=== PATIENT | male | born 1955 | race Caucasian/White ===

== ENCOUNTER → 2017-10-31 01:01 | Outpatient (CLI) | payer OTHER, SELFPAY ==
[2017-10-31 10:15] LABS: INR 2.8 (1.0-3.5); Prothrombin Time 26.2 sec (9.3-10.8)
== END ==
PROVIDERS: PCP Family Medicine; Visit Provider Family Medicine
DX: Z79.01 Long term (current) use of anticoagulants (principal); Z95.2 Presence of prosthetic heart valve
CPT/HCPCS: 36415; 85610

== ENCOUNTER → 2017-11-26 03:06 | Outpatient (CLI) | payer OTHER, SELFPAY ==
[2017-11-26 10:56] LABS: INR 2.4 (1.0-3.5); Prothrombin Time 23.1 sec (9.3-10.8)
== END ==
PROVIDERS: PCP Family Medicine; Visit Provider Family Medicine
DX: Z95.2 Presence of prosthetic heart valve (principal); Z79.01 Long term (current) use of anticoagulants; I35.8 Other nonrheumatic aortic valve disorders
CPT/HCPCS: 36415; 85610

== ENCOUNTER 2017-12-31 02:47 | Outpatient (CLI) | payer OTHER, SELFPAY ==
[2017-12-31 09:32] LABS: INR 2.6 (1.0-3.5); Prothrombin Time 24.3 sec (9.3-10.8)
== END 2017-12-31 03:07 ==
PROVIDERS: PCP Family Medicine; Visit Provider Family Medicine
DX: Z95.2 Presence of prosthetic heart valve (principal); Z79.01 Long term (current) use of anticoagulants
CPT/HCPCS: 36415; 85610

== ENCOUNTER 2018-01-30 02:04 | Outpatient (CLI) | payer OTHER, SELFPAY ==
[2018-01-30 12:46] LABS: INR 3.6 (1.0-3.5); Prothrombin Time 33.9 sec (9.3-10.8)
== END 2018-01-30 02:24 ==
PROVIDERS: PCP Family Medicine; Visit Provider Family Medicine
DX: Z95.2 Presence of prosthetic heart valve (principal); Z79.01 Long term (current) use of anticoagulants
CPT/HCPCS: 36415; 85610

== ENCOUNTER 2018-02-27 01:48 | Outpatient (CLI) | payer OTHER, SELFPAY ==
[2018-02-27 08:46] LABS: INR 2.8 (1.0-3.5); Prothrombin Time 26.8 sec (9.3-10.8)
== END 2018-02-27 02:08 ==
PROVIDERS: PCP Family Medicine; Visit Provider Family Medicine
DX: Z95.2 Presence of prosthetic heart valve (principal); Z79.01 Long term (current) use of anticoagulants
CPT/HCPCS: 36415; 85610

== ENCOUNTER 2018-05-01 05:26 | Outpatient (CLI) | payer OTHER, SELFPAY ==
[2018-05-01 07:42] LABS: INR 2.5 (0.9-1.1); Prothrombin Time 25.2 sec (9.3-11.0)
== END 2018-05-01 05:46 ==
PROVIDERS: PCP Family Medicine; Visit Provider Family Medicine
DX: I35.8 Other nonrheumatic aortic valve disorders (principal); Z95.2 Presence of prosthetic heart valve; Z79.01 Long term (current) use of anticoagulants
CPT/HCPCS: 36415; 85610

== ENCOUNTER 2018-05-29 07:03 | Outpatient (CLI) | payer OTHER, SELFPAY ==
[2018-05-29 07:43] LABS: INR 2.3 (0.9-1.1); Prothrombin Time 22.9 sec (9.3-11.0)
== END 2018-05-29 07:23 ==
LOC: NCHCO 07:24
PROVIDERS: PCP Family Medicine; Visit Provider Family Medicine
DX: Z95.2 Presence of prosthetic heart valve (principal); Z79.01 Long term (current) use of anticoagulants
CPT/HCPCS: 36415; 85610

== ENCOUNTER 2018-07-30 01:40 | Outpatient (CLI) | payer OTHER, SELFPAY ==
[2018-07-30 07:35] LABS: Prothrombin Time 19.6 sec (9.3-11.0)
[2018-07-30 07:36] LABS: INR 1.9 (0.9-1.1)
== END 2018-07-30 02:00 ==
PROVIDERS: PCP Family Medicine; Visit Provider Family Medicine
DX: Z95.2 Presence of prosthetic heart valve (principal); Z79.01 Long term (current) use of anticoagulants
CPT/HCPCS: 36415; 85610

== ENCOUNTER 2018-08-30 02:05 | Outpatient (CLI) | payer OTHER, SELFPAY ==
[2018-08-30 07:52] LABS: INR 2.2 (0.9-1.1); Prothrombin Time 22.3 sec (9.3-11.0)
== END 2018-08-30 02:25 ==
PROVIDERS: PCP Family Medicine; Visit Provider Family Medicine
DX: Z95.2 Presence of prosthetic heart valve (principal); Z79.01 Long term (current) use of anticoagulants
CPT/HCPCS: 36415; 85610

== ENCOUNTER 2018-09-21 09:42 | Emergency (ER) | payer OTHER, SELFPAY ==
[2018-09-21 09:45] VITALS: BP 141/69; PULSE 87; RESP 16; TEMP 36.7; O2SAT 95
--- NOTE | 2018-09-21 09:56 | ED.GENADUL_ITS ---
Discharge Plan Disposition Patient Disposition: HOME Condition: Stable Discharge Details Chief Complaint: Orthopedic Clinical Impression: Overuse injury Primary Care Provider: Yohana Prado V ED Provider: Pete Wall Home Meds and New Rx's Prescriptions: No Action warfarin [Coumadin] 10 MG tablet 10 mg PO DAILY RF: 0 metformin [Glucophage] 1,000 MG tablet 500 mg PO BID RF: 0 aspirin [Aspirin Low-Strength] 81 MG tablet,chewable 81 mg PO DAILY RF: 0 levothyroxine [Synthroid] 200 MCG tablet 225 mcg PO DAILY RF: 0 metoprolol tartrate 25 MG tablet 25 mg PO BID RF: 0 losartan 25 mg Tablet 25 mg PO DAILY RF: 0 Cosentyx 150 MG/ML syringe 300 mg IM PER PROTOCOL RF: 0 Novolog PenFill U-100 Insulin 100 UNIT/ML cartridge SQ PRN PRNRF: 0 Levemir FlexTouch U-100 Insuln 300 UNITS/3 ML insulin pen 32 unit SQ BID RF: 0 Discharge Instructions Additional Instructions: Continue to take the tylenol as needed 1000mg every 6 hours Use the splint as needed for comfort If you have new symptoms such as fever or redness of the wrist that is spreading return to the emergency department. follow up as scheduled with your primary care provider on Medical Decision Making 62 yo male on coumadin for heart valve replacement, dm, who comes in with cc of nontraumatic left wrist pain for a week. 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 No systemic symptoms such as fevers/chills, and no rashes. He has pain over the ulnar side of his wrist without visible or palpable deformity and some associated numbness of the pinky and ring finger. Does have full rom of the wrist and fingers. I suspect overuse syndrome vs ulnar neuropathy but will xray to eval for any type of bone pathology, unlikely fracture given lack of trauma. no fever, swelling or redness/warmth so doubt septic joint or gout. xray negative on my read, will place in splint and have him f/u as scheduled Thdya and return precautions given Differential Diagnosis neuropathy, sprain, overuse syndrome Imaging Data Radiologic Study: Attestation: I personally reviewed and interpreted this imaging study as follows: Imaging: X-Ray My impression: no acute findings HPI General Mode of arrival: ambulatory . Date/Time Provider Initiated Documentation: 09/21/18 09:50 . Limitations to Documentation: no limitations . Information obtained by: patient . History of Present Illness 62 year old M presents to the emergency department with the chief complaint of left wrist pain, described as moderate, Quality is described as aching, and is localized to the left and upper extremity. Patient reports no radiation. Patient started experiencing this week(s) (1) and it has been constant. No relieving factors improve symptom(s), No exacerbating factors reported . Patient notes no other symptoms.. Patient did receive the following treatments prior to arrival, none Related Data Home Medications Medication Instructions Recorded Confirmed aspirin [Aspirin Low-Strength] 81 mg PO DAILY 11/11/13 09/21/18 levothyroxine [Synthroid] 225 mcg PO DAILY 11/11/13 09/21/18 metformin [Glucophage] 500 mg PO BID 11/11/13 09/21/18 metoprolol tartrate 25 mg PO BID 11/11/13 09/21/18 warfarin [Coumadin] 10 mg PO DAILY 11/11/13 09/21/18 insulin aspart U-100 [Novolog] units SQ PRN PRN 04/29/17 insulin detemir U-100 [Levemir 32 unit SQ BID 04/29/17 09/21/18 Flextouch Pen] secukinumab [Cosentyx Syringe] 300 mg IM PER PROTOCOL 04/29/17 09/21/18 losartan 25 mg PO DAILY 09/21/18 09/21/18 Allergies Allergy/AdvReac Type Severity Reaction Status Date / Time Penicillins Allergy Severe Swelling/Ed Unverified 09/21/18 09:48 omar infliximab [From Remicade] AdvReac Severe Gave him Unverified 09/21/18 09:48 Lopus adalimumab [From Humira] AdvReac Intermediate Skin Rash Unverified 09/21/18 09:48 clindamycin AdvReac Intermediate Skin Rash Unverified 09/21/18 09:48 ustekinumab [From Stelara] AdvReac Intermediate Skin Rash Unverified 09/21/18 09:48 General Stated Complaint: Orthopedic LEDA: 4 Review of Systems Review of Systems All systems reviewed & are unremarkable except as noted in HPI and below Constitutional Denies chills and Denies fever(s) Cardiovascular Denies chest pain and Denies dyspnea Respiratory Denies cough and Denies dyspnea Gastrointestinal Denies abdominal pain, Denies nausea and Denies vomiting Integumentary/Breasts Denies rash PFSH Social History Smoking/Tobacco Use Status: Former Tobacco Use Alcohol Intake: never Drug use: Never Substance use type: does not use Do you feel safe at home: Yes Do you feel safe in your relationship?: Yes Exam Const General: no acute distress Orientation: alert HENMT Head: normal to inspection Ears: external ears normal General nose exam: external nose normal Mouth: moist mucous membranes Eyes General: appearance normal, both eyes and all related structures Neck Neck: normal visual inspection Resp Effort & Inspection: normal respiratory effort and able to speak in complete sentences Cardio Rate: regular rate Skin General skin exam: no rashes or lesions noted Neuro General: alert and oriented x3 Extrem General: normal to inspection Psych Mental Status: mental status grossly normal Course Vital Signs Temperature 36.7 C 09/21/18 09:45 Pulse 87 09/21/18 09:45 Respiratory Rate 16 09/21/18 09:45 Blood Pressure 141/69 H 09/21/18 09:45 Pulse Oximetry 95 09/21/18 09:45 Temperature 36.7 C 09/21/18 09:45 Temperature Source Temporal Artery Scan 09/21/18 09:45 Pulse 87 09/21/18 09:45 Respiratory Rate 16 09/21/18 09:45 Respiratory Effort Non-Labored 09/21/18 09:47 Blood Pressure 141/69 H 09/21/18 09:45 Blood Pressure Position Sitting 09/21/18 09:45 Pulse Oximetry 95 09/21/18 09:45 Oxygen Delivery Method Room Air 09/21/18 09:45 Oxygen Flow Rate 0 09/21/18 09:45 Pain Level 10 09/21/18 09:51
--- NOTE | 2018-09-21 10:06 | DI.RAD_ITS ---
SYMPTOM/DIAGNOSIS: MEDIAL WRIST PAIN LEFT WRIST: There are a few tiny metallic foreign bodies. No fracture or dislocation is seen. There are mild degenerative changes in the carpal and radial carpal regions. Vascular calcifications are seen. IMPRESSION: No acute abnormality.
--- NOTE | 2018-09-21 11:42 | DI.VRAD_ITS ---
EXAM: XR Left Wrist EXAM DATE/TIME: 09/21/2018 9:55 AM CLINICAL HISTORY: 62 years old, male; Patient HX: No known injury, pain in left wrist x1 week. No HX of injury or FX to left wrist. TECHNIQUE: Imaging protocol: XR Left wrist. Views: 3 or more views. COMPARISON: No relevant prior studies available. FINDINGS: Bones/joints: Degenerative changes in the carpal bones and radiocarpal joint There is no evidence of acute fracture.There is no evidence of malalignment or dislocation. Soft tissues: Metallic foreign body in the soft tissues adjacent to the distal radius IMPRESSION: There is no evidence of acute fracture.There is no evidence of malalignment or dislocation. Dictated and Authenticated by: Nikolai Tran MD. Ordering:WIN Freeman MD
== END 2018-09-21 10:23 | disposition home or self-care (01) ==
PROVIDERS: Emergency Provider Emergency Medicine; PCP Family Medicine
DX: M25.532 Pain in left wrist (principal); R20.2 Paresthesia of skin; X50.3XXA Overexertion from repetitive movements, initial encounter; E11.9 Type 2 diabetes mellitus without complications; Z79.4 Long term (current) use of insulin; Z79.01 Long term (current) use of anticoagulants; Z95.2 Presence of prosthetic heart valve
CPT/HCPCS: 99283; 73110; 99282; L3807

== ENCOUNTER 2018-09-26 18:04 | Outpatient (REF) | payer OTHER, SELFPAY ==
[2018-09-26 21:49] LABS: HCT 42.1 % (40.0-50.0); HGB 14.8 g/dL (13.5-17.5); Mean Corp. HGB Concentration 35.2 g/dL (32.0-36.0); Mean Corpuscular Hemoglobin 29.2 pg (27.0-33.0); Mean Corpuscular Volume 83.2 fL (80-95); Mean Platelet Volume 11.2 fL (8.0-11.0); Platelet Count 164 x1000/uL (130-400); RBC 5.06 m/cumm (4.50-6.00); RBC Distribution Width 13.4 % (11.8-14.1); White Blood Cell Count 5.89 k/cumm (4.4-10.8)
[2018-09-26 22:20] LABS: C-Reactive Protein 2.77 mg/dL (0.0-0.3)
[2018-09-30 12:28] LABS: PSA, Screening 0.3 ng/ml (0-4.5)
== END 2018-09-26 18:24 ==
LOC: NCHCN 18:04
PROVIDERS: PCP Family Medicine; Visit Provider Family Medicine
DX: G56.30 Lesion of radial nerve, unspecified upper limb (principal); E11.65 Type 2 diabetes mellitus with hyperglycemia; Z79.01 Long term (current) use of anticoagulants; E03.9 Hypothyroidism, unspecified; K76.0 Fatty (change of) liver, not elsewhere classified; Z12.5 Encounter for screening for malignant neoplasm of prostate
CPT/HCPCS: 84153; 85027; 84443; 86140

== ENCOUNTER 2018-10-07 18:31 | Outpatient (REF) | payer OTHER, SELFPAY ==
[2018-10-07 19:31] LABS: Abs Immature Grans 0.06 k/cumm (0.0-0.09); Absolute Basophil Count 0.01 k/cumm (0.0-0.2); Absolute Eosinophil Count 0.12 k/cumm (0.0-0.7); Absolute Lymphocyte Count 1.72 k/cumm (1.2-3.4); Absolute Monocyte Count 0.48 k/cumm (0.11-0.7); Absolute Neutrophil Count 2.38 k/cumm (1.2-6.7); Basophils % 0.2; Eosinophils % 2.5; HCT 34.3 % (40.0-50.0); HGB 11.8 g/dL (13.5-17.5); Immature Grans % 1.3; Lymphocytes % 36.1; Mean Corp. HGB Concentration 34.4 g/dL (32.0-36.0); Mean Corpuscular Hemoglobin 29.2 pg (27.0-33.0); Mean Corpuscular Volume 84.9 fL (80-95); Mean Platelet Volume 10.3 fL (8.0-11.0); Monocytes % 10.1; Neutrophils % 49.8; Platelet Count 234 x1000/uL (130-400); RBC 4.04 m/cumm (4.50-6.00); RBC Distribution Width 13.7 % (11.8-14.1); White Blood Cell Count 4.77 k/cumm (4.4-10.8)
[2018-10-07 20:24] LABS: ALT 18 U/L (12-78); AST 23 U/L (15-37); Alkaline Phosphatase 84 U/L (46-116); BUN 12 mg/dL (7-18); CREATININE 1.07 mg/dL (0.70-1.30); Calcium 8.5 mg/dL (8.5-10.1); Chloride 102 mmol/L (98-107); Gentamicin, Trough 0.5 ug/mL (0.5-2.0); Glucose 100 mg/dL (70-100); Sodium 137 mmol/L (136-145)
[2018-10-07 20:57] LABS: C-Reactive Protein 1.26 mg/dL (0.0-0.3)
[2018-10-07 23:25] LABS: ESR 105 MM/HR (1-20)
== END 2018-10-07 18:51 ==
LOC: LBN 18:31
PROVIDERS: PCP Family Medicine; Visit Provider Internal Medicine Infectious Disease
DX: R78.81 Bacteremia (principal); Z51.81 Encounter for therapeutic drug level monitoring; Z79.899 Other long term (current) drug therapy
CPT/HCPCS: 80048; 85652; 80170; 84075; 84450; 84460; 85025; 86140

== ENCOUNTER 2018-10-10 20:03 | Outpatient (REF) | payer OTHER, SELFPAY ==
[2018-10-10 20:33] LABS: Gentamicin, Random 0.6 ug/mL (1.9-8.0)
== END 2018-10-10 20:23 ==
LOC: NCHCN 20:03
PROVIDERS: PCP Family Medicine; Visit Provider Family Medicine
DX: R78.81 Bacteremia (principal); A41.01 Sepsis due to Methicillin susceptible Staphylococcus aureus
CPT/HCPCS: 80170

== ENCOUNTER 2018-10-14 19:49 | Outpatient (REF) | payer OTHER, SELFPAY ==
[2018-10-14 18:31] LABS: Absolute Basophil Count 0.03 k/cumm (0.0-0.2); HCT 33.6 % (40.0-50.0); HGB 11.5 g/dL (13.5-17.5); Mean Corp. HGB Concentration 34.2 g/dL (32.0-36.0); Mean Corpuscular Hemoglobin 28.9 pg (27.0-33.0); Mean Corpuscular Volume 84.4 fL (80-95); Mean Platelet Volume 9.4 fL (8.0-11.0); Platelet Count 209 x1000/uL (130-400); RBC 3.98 m/cumm (4.50-6.00); RBC Distribution Width 13.5 % (11.8-14.1); White Blood Cell Count 3.21 k/cumm (4.4-10.8)
[2018-10-14 18:51] LABS: ALT 13 U/L (12-78); AST 17 U/L (15-37); Alkaline Phosphatase 77 U/L (46-116); Anion Gap 10.6 mmol/L (3-11); BUN 11 mg/dL (7-18); C-Reactive Protein 0.36 mg/dL (0.0-0.3); CO2 24.4 mmol/L (21.0-32.0); CREATININE 1.01 mg/dL (0.70-1.30); Calcium 8.9 mg/dL (8.5-10.1); Chloride 102 mmol/L (98-107); Glucose 132 mg/dL (70-100); Potassium 3.8 mmol/L (3.5-5.1); Sodium 137 mmol/L (136-145)
[2018-10-14 19:29] LABS: Absolute Lymphocyte Count 1.73 k/cumm (1.2-3.4); Absolute Monocyte Count 0.19 k/cumm (0.11-0.7); Absolute Neutrophil Count 1.12 k/cumm (1.2-6.7)
[2018-10-14 19:30] LABS: Absolute Eosinophil Count 0.13 k/cumm (0.0-0.7); Diff Comment Manual Differential; ESR 84 MM/HR (1-20); RBC Morphology Normal
== END 2018-10-14 20:09 ==
LOC: LBN 19:49
PROVIDERS: PCP Family Medicine; Visit Provider Family Medicine
DX: R78.81 Bacteremia (principal); A41.01 Sepsis due to Methicillin susceptible Staphylococcus aureus; Z79.2 Long term (current) use of antibiotics
CPT/HCPCS: 80048; 85652; 84075; 84450; 84460; 85025; 86140

== ENCOUNTER 2018-10-21 15:18 | Outpatient (REF) | payer OTHER, SELFPAY ==
[2018-10-21 16:07] LABS: Abs Immature Grans 0.01 k/cumm (0.0-0.09); Absolute Basophil Count 0.03 k/cumm (0.0-0.2); HCT 33.4 % (40.0-50.0); HGB 11.4 g/dL (13.5-17.5); Mean Corp. HGB Concentration 34.1 g/dL (32.0-36.0); Mean Corpuscular Hemoglobin 29.2 pg (27.0-33.0); Mean Corpuscular Volume 85.6 fL (80-95); Mean Platelet Volume 10.2 fL (8.0-11.0); Platelet Count 169 x1000/uL (130-400); RBC Distribution Width 14.1 % (11.8-14.1); White Blood Cell Count 3.21 k/cumm (4.4-10.8)
[2018-10-21 16:23] LABS: ALT 18 U/L (12-78); AST 20 U/L (15-37); Alkaline Phosphatase 76 U/L (46-116); Anion Gap 11.9 mmol/L (3-11); BUN 11 mg/dL (7-18); C-Reactive Protein 0.19 mg/dL (0.0-0.3); CO2 22.1 mmol/L (21.0-32.0); CREATININE 0.97 mg/dL (0.70-1.30); Calcium 8.9 mg/dL (8.5-10.1); Chloride 105 mmol/L (98-107); Glucose 88 mg/dL (70-100); Potassium 3.8 mmol/L (3.5-5.1); Sodium 139 mmol/L (136-145)
[2018-10-21 17:10] LABS: Absolute Neutrophil Count 1.77 k/cumm (1.2-6.7)
[2018-10-21 17:11] LABS: Absolute Lymphocyte Count 1.12 k/cumm (1.2-3.4); Absolute Monocyte Count 0.19 k/cumm (0.11-0.7); Atypical Lymphocytes % 0; Diff Comment Manual Differential; RBC Morphology Normal
[2018-10-21 17:21] LABS: ESR 76 mm/hr (1-20)
[2018-10-22 19:38] LABS: Hemoglobin A1C 7.4 % (4.5-6.2)
== END 2018-10-21 15:38 ==
LOC: LBN 15:18
PROVIDERS: PCP Family Medicine; Visit Provider Family Medicine
DX: R78.81 Bacteremia (principal); A41.01 Sepsis due to Methicillin susceptible Staphylococcus aureus; Z79.2 Long term (current) use of antibiotics; E11.65 Type 2 diabetes mellitus with hyperglycemia
CPT/HCPCS: 80048; 85652; 83036; 84075; 84450; 84460; 85025; 86140

== ENCOUNTER 2018-10-28 20:04 | Outpatient (REF) | payer OTHER, SELFPAY ==
[2018-10-28 16:11] LABS: ALT 18 U/L (12-78); AST 13 U/L (15-37); Alkaline Phosphatase 70 U/L (46-116); Anion Gap 12.7 mmol/L (3-11); BUN 9 mg/dL (7-18); C-Reactive Protein 0.37 mg/dL (0.0-0.3); CO2 23.3 mmol/L (21.0-32.0); CREATININE 0.95 mg/dL (0.70-1.30); Calcium 8.7 mg/dL (8.5-10.1); Chloride 104 mmol/L (98-107); Glucose 133 mg/dL (70-100); Potassium 3.6 mmol/L (3.5-5.1); Sodium 140 mmol/L (136-145)
[2018-10-28 16:29] LABS: Abs Immature Grans 0.01 k/cumm (0.0-0.09); Absolute Basophil Count 0.03 k/cumm (0.0-0.2); Absolute Eosinophil Count 0.25 k/cumm (0.0-0.7); Absolute Lymphocyte Count 1.27 k/cumm (1.2-3.4); Absolute Monocyte Count 0.34 k/cumm (0.11-0.7); Absolute Neutrophil Count 1.61 k/cumm (1.2-6.7); Basophils % 0.9; Eosinophils % 7.1; HCT 33.8 % (40.0-50.0); HGB 11.6 g/dL (13.5-17.5); Immature Grans % 0.3; Lymphocytes % 36.2; Mean Corp. HGB Concentration 34.3 g/dL (32.0-36.0); Mean Corpuscular Hemoglobin 29.4 pg (27.0-33.0); Mean Corpuscular Volume 85.8 fL (80-95); Mean Platelet Volume 9.9 fL (8.0-11.0); Monocytes % 9.7; Neutrophils % 45.8; Platelet Count 180 x1000/uL (130-400); RBC 3.94 m/cumm (4.50-6.00); RBC Distribution Width 14.4 % (11.8-14.1); White Blood Cell Count 3.51 k/cumm (4.4-10.8)
[2018-10-28 17:14] LABS: ESR 68 mm/hr (1-20)
== END 2018-10-28 20:24 ==
LOC: NCHCN 20:04
PROVIDERS: PCP Family Medicine; Visit Provider Family Medicine
DX: R78.81 Bacteremia (principal); A41.01 Sepsis due to Methicillin susceptible Staphylococcus aureus; Z79.2 Long term (current) use of antibiotics
CPT/HCPCS: 80048; 85652; 84075; 84450; 84460; 85025; 86140

== ENCOUNTER 2018-11-01 20:42 | Outpatient (REF) | payer OTHER, SELFPAY ==
[2018-11-01 21:28] LABS: Abs Immature Grans 0.01 k/cumm (0.0-0.09); Absolute Basophil Count 0.02 k/cumm (0.0-0.2); Absolute Eosinophil Count 0.17 k/cumm (0.0-0.7); Absolute Lymphocyte Count 1.03 k/cumm (1.2-3.4); Absolute Monocyte Count 0.38 k/cumm (0.11-0.7); Absolute Neutrophil Count 1.63 k/cumm (1.2-6.7); Basophils % 0.6; Eosinophils % 5.2; HCT 34.4 % (40.0-50.0); HGB 11.5 g/dL (13.5-17.5); Immature Grans % 0.3; Lymphocytes % 31.8; Mean Corp. HGB Concentration 33.4 g/dL (32.0-36.0); Mean Corpuscular Hemoglobin 28.9 pg (27.0-33.0); Mean Corpuscular Volume 86.4 fL (80-95); Mean Platelet Volume 10.9 fL (8.0-11.0); Monocytes % 11.7; Neutrophils % 50.4; Platelet Count 165 x1000/uL (130-400); RBC 3.98 m/cumm (4.50-6.00); RBC Distribution Width 14.4 % (11.8-14.1); White Blood Cell Count 3.24 k/cumm (4.4-10.8)
[2018-11-01 21:40] LABS: ALT 12 U/L (12-78); AST 12 U/L (15-37); Alkaline Phosphatase 59 U/L (46-116); Anion Gap 10.5 mmol/L (3-11); BUN 8 mg/dL (7-18); C-Reactive Protein 0.61 mg/dL (0.0-0.3); CO2 23.5 mmol/L (21.0-32.0); CREATININE 0.89 mg/dL (0.70-1.30); Calcium 7.9 mg/dL (8.5-10.1); Chloride 105 mmol/L (98-107); Glucose 83 mg/dL (70-100); Potassium 3.3 mmol/L (3.5-5.1); Sodium 139 mmol/L (136-145)
[2018-11-01 22:23] LABS: ESR 56 mm/hr (1-20)
== END 2018-11-01 21:02 ==
LOC: LBN 20:42
PROVIDERS: PCP Family Medicine; Visit Provider Internal Medicine Infectious Disease
DX: A41.01 Sepsis due to Methicillin susceptible Staphylococcus aureus (principal); R78.81 Bacteremia
CPT/HCPCS: 80048; 85652; 84075; 84450; 84460; 85025; 86140

== ENCOUNTER 2018-11-19 02:08 | Outpatient (CLI) | payer OTHER, SELFPAY ==
[2018-11-19 09:47] LABS: Prothrombin Time 10.4 sec (9.3-11.0)
== END 2018-11-19 02:28 ==
PROVIDERS: PCP Family Medicine; Visit Provider Family Medicine
DX: Z95.2 Presence of prosthetic heart valve (principal); Z79.01 Long term (current) use of anticoagulants
CPT/HCPCS: 36415; 85610

== ENCOUNTER 2018-11-25 01:58 | Outpatient (CLI) | payer OTHER, SELFPAY ==
[2018-11-25 11:00] LABS: INR 1.5 (0.9-1.1); Prothrombin Time 15.1 sec (9.3-11.0)
== END 2018-11-25 02:18 ==
PROVIDERS: PCP Family Medicine; Visit Provider Family Medicine
DX: Z95.2 Presence of prosthetic heart valve (principal); Z79.01 Long term (current) use of anticoagulants
CPT/HCPCS: 36415; 85610

== ENCOUNTER 2018-12-03 01:13 | Outpatient (CLI) | payer OTHER, SELFPAY ==
[2018-12-03 08:09] LABS: INR 1.7 (0.9-1.1); Prothrombin Time 17.5 sec (9.3-11.0)
== END 2018-12-03 01:33 ==
PROVIDERS: PCP Family Medicine; Visit Provider Family Medicine
DX: Z95.2 Presence of prosthetic heart valve (principal); Z79.01 Long term (current) use of anticoagulants
CPT/HCPCS: 36415; 85610

== ENCOUNTER 2018-12-09 01:05 | Outpatient (CLI) | payer OTHER, SELFPAY ==
[2018-12-09 07:30] LABS: INR 2.2 (0.9-1.1); Prothrombin Time 22.3 sec (9.3-11.0)
== END 2018-12-09 01:25 ==
PROVIDERS: PCP Family Medicine; Visit Provider Family Medicine
DX: Z95.2 Presence of prosthetic heart valve (principal); Z79.01 Long term (current) use of anticoagulants
CPT/HCPCS: 36415; 85610

== ENCOUNTER 2018-12-17 01:22 | Outpatient (CLI) | payer OTHER, SELFPAY ==
[2018-12-17 08:39] LABS: INR 2.2 (0.9-1.1); Prothrombin Time 21.8 sec (9.3-11.0)
== END 2018-12-17 01:42 ==
PROVIDERS: PCP Family Medicine; Visit Provider Family Medicine
DX: Z95.2 Presence of prosthetic heart valve (principal); Z79.01 Long term (current) use of anticoagulants
CPT/HCPCS: 36415; 85610

== ENCOUNTER 2019-01-27 02:11 | Outpatient (CLI) | payer OTHER, SELFPAY ==
[2019-01-27 07:49] LABS: Prothrombin Time 21.2 sec (9.3-11.0)
[2019-01-27 07:56] LABS: INR 2.1 (0.9-1.1)
[2019-01-27 08:25] LABS: ALT 41 U/L (16-63); AST 21 U/L (15-37); Albumin 3.7 g/dL (3.4-5.0); Alkaline Phosphatase 76 U/L (46-116); Anion Gap 13.4 mmol/L (3-11); BUN 25 mg/dL (7-18); Bilirubin, Total 0.4 mg/dL (0.2-1.0); CO2 22.6 mmol/L (21.0-32.0); CREATININE 1.06 mg/dL (0.70-1.30); Calcium 9.3 mg/dL (8.5-10.1); Chloride 104 mmol/L (98-107); Cholesterol 254 mg/dL (50-200); Glucose 128 mg/dL (70-100); HDL Cholesterol 32 mg/dL (40-60); Sodium 140 mmol/L (136-145); Total Protein 7.9 g/dL (6.4-8.2); Triglyceride 521 mg/dL (30-150)
[2019-01-27 08:37] LABS: LDL CHOLESTEROL 121 mg/dL (<100)
== END 2019-01-27 02:31 ==
PROVIDERS: PCP Family Medicine; Visit Provider Family Medicine
DX: Z95.2 Presence of prosthetic heart valve (principal); Z79.01 Long term (current) use of anticoagulants; E11.9 Type 2 diabetes mellitus without complications
CPT/HCPCS: 36415; 80053; 80061; 83721; 85610

== ENCOUNTER 2019-03-03 01:14 | Outpatient (CLI) | payer OTHER, SELFPAY ==
[2019-03-03 09:36] LABS: Prothrombin Time 40.4 sec (9.3-11.0)
[2019-03-03 09:56] LABS: INR 4.2 (0.9-1.1)
== END 2019-03-03 01:34 ==
PROVIDERS: PCP Family Medicine; Visit Provider Family Medicine
DX: Z95.2 Presence of prosthetic heart valve (principal); Z79.01 Long term (current) use of anticoagulants
CPT/HCPCS: 36415; 85610

== ENCOUNTER 2019-03-10 00:15 | Outpatient (CLI) | payer OTHER, SELFPAY ==
[2019-03-10 10:17] LABS: INR 2.4 (0.9-1.1); Prothrombin Time 23.7 sec (9.3-11.0)
== END 2019-03-10 00:35 ==
PROVIDERS: PCP Family Medicine; Visit Provider Family Medicine
DX: Z95.2 Presence of prosthetic heart valve (principal); Z79.01 Long term (current) use of anticoagulants
CPT/HCPCS: 36415; 85610

== ENCOUNTER 2019-03-17 02:08 | Outpatient (CLI) | payer OTHER, SELFPAY ==
[2019-03-17 09:47] LABS: INR 2.4 (0.9-1.1); Prothrombin Time 23.5 sec (9.3-11.0)
== END 2019-03-17 02:28 ==
PROVIDERS: PCP Family Medicine; Visit Provider Family Medicine
DX: Z79.01 Long term (current) use of anticoagulants (principal); Z95.2 Presence of prosthetic heart valve
CPT/HCPCS: 36415; 85610

== ENCOUNTER 2019-03-31 01:41 | Outpatient (CLI) | payer OTHER, SELFPAY ==
[2019-03-31 14:44] LABS: INR 2.6 (0.9-1.1); Prothrombin Time 25.1 sec (9.3-11.0)
== END 2019-03-31 02:01 ==
PROVIDERS: PCP Family Medicine; Visit Provider Family Medicine
DX: I35.8 Other nonrheumatic aortic valve disorders (principal); Z95.2 Presence of prosthetic heart valve; Z79.01 Long term (current) use of anticoagulants
CPT/HCPCS: 36415; 85610

== ENCOUNTER 2019-04-01 07:39 | Outpatient (CLI) | payer OTHER, SELFPAY ==
--- NOTE | 2019-04-01 15:15 | DI.RAD_ITS ---
EXAM: XR CERVICAL SPINE COMP 4-5V CLINICAL HISTORY: CERVICALGIA M54.2 TECHNIQUE: COMPARISON: No exams were available for comparison FINDINGS: Six views were obtained. There is marked disc space narrowing at the C6-7 level with adjacent endpl ate hypertrophic changes and sclerosis and loss of the disc height at this level.. Minimal endplate hypertrophic changes seen throughout the remainder of the cervical spine with moderate endplate meyer es noted at C5-6. Neural foramina are well maintained as visualized on oblique views. No other sign ificant bony abnormality seen. IMPRESSION: Degenerative changes most marked at C6-7 level.
== END 2019-04-01 07:59 ==
PROVIDERS: PCP Family Medicine; Visit Provider Family Medicine
DX: M54.2 Cervicalgia (principal); M50.323 Other cervical disc degeneration at C6-C7 level
CPT/HCPCS: 72050

== ENCOUNTER 2019-04-16 00:53 | Outpatient (CLI) | payer OTHER, SELFPAY ==
[2019-04-16 07:28] LABS: INR 2.2 (0.9-1.1); Prothrombin Time 21.5 sec (9.3-11.0)
== END 2019-04-16 01:13 ==
PROVIDERS: PCP Family Medicine; Visit Provider Family Medicine
DX: Z79.01 Long term (current) use of anticoagulants (principal); Z95.2 Presence of prosthetic heart valve
CPT/HCPCS: 36415; 85610

== ENCOUNTER 2019-05-23 08:56 | Outpatient (CLI) | payer OTHER, SELFPAY ==
[2019-05-23 09:34] LABS: INR 2.2 (0.9-1.1)
== END 2019-05-23 09:16 ==
PROVIDERS: PCP Family Medicine; Visit Provider Family Medicine
DX: Z95.2 Presence of prosthetic heart valve (principal); Z79.01 Long term (current) use of anticoagulants
CPT/HCPCS: 36415; 80053; 80061; 85610

== ENCOUNTER 2019-06-30 04:10 | Outpatient (CLI) | payer OTHER, SELFPAY ==
[2019-06-30 07:50] LABS: Hemoglobin A1C 7.3 % (3.8-5.6)
[2019-06-30 07:52] LABS: INR 2.5 (0.9-1.1); Prothrombin Time 24.7 sec (9.3-11.0)
[2019-06-30 09:21] LABS: ALT 34 U/L (16-63); AST 22 U/L (15-37); Albumin 3.9 g/dL (3.4-5.0); Alkaline Phosphatase 69 U/L (46-116); Anion Gap 12.2 mmol/L (3-11); BUN 23 mg/dL (7-18); Bilirubin, Total 0.6 mg/dL (0.2-1.0); CO2 22.8 mmol/L (21.0-32.0); CREATININE 1.11 mg/dL (0.70-1.30); Calcium 8.9 mg/dL (8.5-10.1); Chloride 103 mmol/L (98-107); Glucose 169 mg/dL (74-106); Potassium 4.3 mmol/L (3.5-5.1); Sodium 138 mmol/L (136-145); TSH (W/Ref FT4) 0.44 uIU/mL (0.36-3.74); Total Protein 7.4 g/dL (6.4-8.2)
[2019-06-30 09:28] LABS: C-Reactive Protein < 0.05 mg/dL (0.0-0.3)
[2019-06-30 09:48] LABS: ESR 23 mm/hr (1-20)
[2019-06-30 15:38] LABS: Rheumatoid Factor <8.6 IU/mL (<12.0)
[2019-07-02 15:35] LABS: ANA Interpretation Positive (Negative); ANA Titer Pattern 1:320 Speckled
== END 2019-06-30 04:30 ==
PROVIDERS: PCP Family Medicine; Visit Provider Family Medicine
DX: M25.511 Pain in right shoulder (principal); M25.512 Pain in left shoulder; E11.65 Type 2 diabetes mellitus with hyperglycemia; E03.9 Hypothyroidism, unspecified; Z95.2 Presence of prosthetic heart valve; Z79.01 Long term (current) use of anticoagulants
CPT/HCPCS: 36415; 80053; 85652; 83036; 84443; 85610; 86038; 86140; 86431

== ENCOUNTER 2019-08-18 09:20 | Outpatient (CLI) | payer OTHER, SELFPAY ==
[2019-08-18 11:56] LABS: Prothrombin Time 21.2 sec (9.3-11.0)
[2019-08-18 12:01] LABS: INR 2.1 (0.9-1.1)
== END 2019-08-18 09:40 ==
PROVIDERS: PCP Family Medicine; Visit Provider Family Medicine
DX: Z95.2 Presence of prosthetic heart valve (principal); Z79.01 Long term (current) use of anticoagulants
CPT/HCPCS: 36415; 85610

== ENCOUNTER 2019-09-25 02:52 | Outpatient (CLI) | payer OTHER, SELFPAY ==
[2019-09-25 09:17] LABS: INR 2.6 (0.9-1.1); Prothrombin Time 25.7 sec (9.3-11.0)
== END 2019-09-25 03:12 ==
PROVIDERS: PCP Family Medicine; Visit Provider Family Medicine
DX: Z95.2 Presence of prosthetic heart valve (principal); Z79.01 Long term (current) use of anticoagulants
CPT/HCPCS: 36415; 85610

== ENCOUNTER 2020-09-23 09:04 | Emergency (ER) | payer OTHER, SELFPAY ==
[2020-09-23 09:08] VITALS: BP 151/76; PULSE 81; RESP 18; TEMP 36.2; O2SAT 96
--- NOTE | 2020-09-23 09:13 | W.ED.GENAD ---
Discharge Plan Disposition Patient Disposition: HOME Condition: Stable Discharge Details Clinical Impression: Hand laceration, Multiple lacerations Primary Care Provider: Yohana Prado V ED Provider: Maria Teresa Turner Home Meds and New Rx's Prescriptions: New doxycycline hyclate 100 mg tablet 100 mg PO BID 7 Days Qty: 14 RF: 0 Continued losartan 50 mg Tablet 50 mg PO DAILY RF: 0 atorvastatin 20 mg Tablet 20 mg PO HS RF: 0 warfarin 5 mg Tablet 5 mg PO DIRECTED RF: 0 insulin lispro [Humalog KwikPen Insulin] 100 unit/mL Insulin Pen 10 unit SUBCUT DIRECTED RF: 0 lidocaine 5 % Ointment 1 applic TOPICAL QID PRNRF: 0 Taltz Autoinjector 80 mg/mL Auto-Injector 80 mg SUBCUT DIRECTED RF: 0 warfarin [Coumadin] 10 MG tablet 10 mg PO DAILY RF: 0 metformin [Glucophage] 1,000 MG tablet 1,000 mg PO BID RF: 0 aspirin [Aspirin Low-Strength] 81 MG tablet,chewable 81 mg PO DAILY RF: 0 levothyroxine [Synthroid] 200 MCG tablet 250 mcg PO DAILY RF: 0 metoprolol tartrate 25 MG tablet 25 mg PO BID RF: 0 Cosentyx 150 MG/ML syringe 300 mg IM PER PROTOCOL RF: 0 insulin aspart U-100 [Novolog PenFill U-100 Insulin] 100 UNIT/ML cartridge SQ PRN PRNRF: 0 Levemir FlexTouch U-100 Insuln 300 UNITS/3 ML insulin pen 32 unit SQ BID RF: 0 Discharge Instructions Instructions: Laceration (ED) Additional Instructions: Keep wound clean and dry. Cover wound with bandage if risk of contamination. Otherwise you can keep the wound open to air if resting at home to allow edges to dry and heal. Your antibiotic prescription has been sent electronically to your pharmacy. Call the pharmacy to make sure your prescription is ready before pickup. Take the prescription as directed. Return to the emergency department in 7 days for suture removal. Return to the emergency department anytime if you develop any worsening or concerning symptoms such as fever, increased pain, redness or swelling. Follow-up with your primary care doctor with referral to orthopedics if you develop any weakness of your fingers. Referrals: Zenon Nugent MD [ [facility]] - Discharge Data Discharge Date/Time-TO BE ENTERED AT DEPARTURE: 09/23/20 11:09 Discharge Physician: Maria Teresa Turner Medical Decision Making 64-year-old male presents with lacerations to his right thumb, second and third fingers after using a eyeglass lens grinder that slipped at work 30 minutes prior to arrival. States the eyeglass lens grinder is still intact and denies any foreign bodies or bony injury. He has 1 linear laceration noted to the right thumb, 2 lacerations noted to the second finger, and one laceration noted to the distal third finger. Bleeding controlled. No foreign bodies. Neurovascularly intact. No deformities noted. Tetanus up-to-date 2013. His hand was soaked, scrubbed and irrigated. Will perform a digital block to the right first and third fingers and local anesthesia infiltration to the right second finger. As patient has a history of diabetes, will cover with antibiotics. He has an allergy to pcn and clindamycin. Will cover with doxycycline. Bacitracin and tube gauze dressings placed. Advised to return to the ED in 7 days for suture removal. Usual and customary return precautions given to discharge. Patient also given orthopedic follow-up information due to the location of his lacerations if he develops any weakness or other concerns. Medical Records Medical records reviewed: Yes I reviewed the patient's medical records. HPI General Mode of arrival: ambulatory. Date/Time Provider Initiated Documentation: 09/23/20 09:05. Limitations to Documentation: no limitations. Information obtained by: patient. HPI Narrative: Pt is a 64-year-old male who presents with lacerations to his right first second and third fingers after using a eyeglass lens grinder that slipped while at work 30 minutes prior to arrival. Patient states his tetanus is up-to-date. He states the eyeglass lens grinder is still intact and denies any known foreign bodies. He denies any bony pain or injury. Related Data Home Medications Medication Instructions Recorded Confirmed aspirin [Aspirin Low-Strength] 81 mg PO DAILY 11/11/13 09/23/20 levothyroxine [Synthroid] 250 mcg PO DAILY 11/11/13 09/23/20 metformin [Glucophage] 1,000 mg PO BID 11/11/13 09/23/20 metoprolol tartrate 25 mg PO BID 11/11/13 09/23/20 warfarin [Coumadin] 10 mg PO DAILY 11/11/13 09/23/20 Cosentyx 300 mg IM PER PROTOCOL 04/29/17 05/28/19 Levemir FlexTouch U-100 Insuln 32 unit SQ BID 04/29/17 09/23/20 insulin aspart U-100 [Novolog units SQ PRN PRN 04/29/17 05/28/19 PenFill U-100 Insulin] Taltz Autoinjector 80 mg SUBCUT DIRECTED 05/19/19 05/19/19 atorvastatin 20 mg PO HS 05/19/19 09/23/20 insulin lispro [Humalog KwikPen 10 unit SUBCUT DIRECTED 05/19/19 09/23/20 Insulin] lidocaine 1 applic TOPICAL QID PRN 05/19/19 05/19/19 losartan 50 mg PO DAILY 05/19/19 09/23/20 warfarin 5 mg PO DIRECTED 05/19/19 doxycycline hyclate 100 mg PO BID 7 Days #14 tab 09/23/20 Previous Rx's Medication Instructions Recorded doxycycline hyclate 100 mg PO BID 7 Days #14 tab 09/23/20 Allergies Allergy/AdvReac Type Severity Reaction Status Date / Time lisinopril Allergy Severe Unverified 09/23/20 09:12 Penicillins Allergy Severe Swelling/Ed Unverified 09/23/20 09:12 omar cyclosporine Allergy Mild Unverified 09/23/20 09:12 infliximab [From Remicade] AdvReac Severe Gave him Unverified 09/23/20 09:12 Lopus adalimumab [From Humira] AdvReac Intermediate Skin Rash Unverified 09/23/20 09:12 clindamycin AdvReac Intermediate Skin Rash Unverified 09/23/20 09:12 ustekinumab [From Stelara] AdvReac Intermediate Skin Rash Unverified 09/23/20 09:12 General Stated Complaint: Laceration LEDA: 4 Review of Systems All systems reviewed & are unremarkable except as noted in HPI and below PFSH Medical History (Updated 09/23/20 @ 10:45 by Maria Teresa Turner DO) Aortic stenosis Bilateral shoulder pain Cervicalgia Daytime somnolence Diabetes mellitus Elbow pain, right Endocarditis Fatty liver History of anticoagulant therapy Hx of sepsis Hyperlipidemia Hypothyroid Lupus transient, from Remicaide Murmur Paresthesia of both hands Psoriasis Radial nerve dysfunction Renal insufficiency Sleepiness Surgical History H/O aortic valve replacement Social History (Updated 05/28/19 @ 12:00 by Glendy Barnett) Smoking/Tobacco Use Status: Former Tobacco Use Smoking risk assessment performed?: Yes Alcohol Intake: never Drug use: Never Substance use type: does not use Household members: spouse Housing: house Number of Children: 2 current occupation: [employer] What type of physical activity do you participate in: walking and independent ambulation Do you feel safe at home: Yes Do you feel safe in your relationship?: Yes Exam Const General: cooperative, healthy appearing and no acute distress HENMT Head: normal to inspection Mouth: oral mucosae normal Eyes General: appearance normal, both eyes and all related structures Neck Neck: normal visual inspection Resp Effort & Inspection: normal respiratory effort and able to speak in complete sentences Cardio Rate: regular rate Skin General skin exam: no rashes or lesions noted Neuro General: patient alert, patient awake and patient oriented x3 Motor: muscle tone normal throughout Other: Motor/sensory grossly intact to right first second and third fingers. No deformities noted. Extrem Hand/finger images: 1. 2cm straight laceration extending through dermis. Bleeding controlled. No foreign bodies noted. 2. 1cm straight laceration R 2nd finger base, lateral aspect, bleeding controlled. No foreign bodies noted. 3. 1cm straight laceration noted on lateral aspect of R 2nd finger, proximal phalange. Bleeding controlled. No foreign bodies noted. 4. 1cm straight laceration noted to R 3rd finger tip, lateral aspect, with 4mm laceration through distal lateral aspect of nail. Remainder of nail intact. Psych Appearance: grossly normal Affect: normal affect Course Vital Signs Vital signs: Vital Signs Temperature 97.2 F L 09/23/20 09:08 Pulse 81 09/23/20 09:08 Respiratory Rate 18 09/23/20 09:08 Blood Pressure 151/76 H 09/23/20 09:08 Pulse Oximetry 96 09/23/20 09:08 Temperature 97.2 F L 09/23/20 09:08 Temperature Source Temporal Artery Scan 09/23/20 09:08 Pulse 81 09/23/20 09:08 Respiratory Rate 18 09/23/20 09:08 Blood Pressure 151/76 H 09/23/20 09:08 Blood Pressure Position Sitting 09/23/20 09:08 Pulse Oximetry 96 09/23/20 09:08 Oxygen Delivery Method Room Air 09/23/20 09:08 Oxygen Flow Rate 0 09/23/20 09:08 Pain Level 1 09/23/20 09:08 Procedures Laceration Laceration 1: Site: hand (thumb) Side (If applicable): right Size (cm): 2 Description: linear Depth: simple, single layer Local Anesthetic: Lidocaine 1% Amount of anesthesia used (mL): 5 Pre-repair: wound explored, irrigated extensively and deep structures intact Skin layer closed with: nylon Size (cm): 5-0 Number of sutures: 3 Technique: simple, interrupted Laceration 2: Site: hand Side (If applicable): right (R 2nd finger base) Size (cm): 1.5 Description: linear Depth: simple, single layer Local Anesthetic: Lidocaine 1% Amount of anesthesia used (mL): 3 Pre-repair: wound explored Skin layer closed with: nylon Size (cm): 5-0 Number of sutures: 3 Technique: simple, interrupted Laceration 3: Site: hand Side (If applicable): right Size (cm): 1.5 Description: linear Depth: simple, single layer Local Anesthetic: Lidocaine 1% Amount of anesthesia used (mL): 2 Pre-repair: wound explored, irrigated extensively and deep structures intact Skin layer closed with: nylon Size (cm): 5-0 Number of sutures: 3 Technique: simple, interrupted Laceration 4: Site: hand Side (If applicable): right (3rd fingertip) Size (cm): 1 Description: linear (through edge of nail) Depth: simple, single layer (and through lateral end of nail) Local Anesthetic: Lidocaine 1% Amount of anesthesia used (mL): 4 Pre-repair: wound explored, irrigated extensively and deep structures intact Skin layer closed with: nylon Size (cm): 3-0 (1 suture, needle entry to nail, exit through fingertip) and 5-0 (1 suture) Number of sutures: 2 Technique: simple, interrupted
[2020-09-23] MEDS: Lidocaine 2% Multi-Dose 50 ML VIAL (10:00)
[2020-09-23] MEDS: Doxycycline Hyclate 100 MG CAP PO (10:49)
[2020-09-23 10:53] VITALS: BP 144/77; PULSE 62; RESP 18; O2SAT 98
== END 2020-09-23 11:09 | disposition home or self-care (01) ==
PROVIDERS: Emergency Provider Physician Assistant; PCP Family Medicine
DX: S61.411A Laceration without foreign body of right hand, initial encounter (principal); W29.8XXA Contact with other powered hand tools and household machinery, initial encounter
CPT/HCPCS: 12002

== ENCOUNTER 2020-10-22 20:05 | Outpatient (REF) | payer OTHER, SELFPAY ==
[2020-10-22 20:32] LABS: Abs Immature Grans 0.02 10^3/uL (0.0-0.06); Absolute Basophil Count 0.05 10^3/uL (0.0-0.2); Absolute Eosinophil Count 0.16 10^3/uL (0.0-0.7); Absolute Lymphocyte Count 1.39 10^3/uL (1.2-3.4); Absolute Monocyte Count 0.34 10^3/uL (0.1-0.8); Absolute Neutrophil Count 2.78 10^3/uL (1.2-6.7); Basophils % 1.1; Eosinophils % 3.4; HCT 38.4 % (40.0-50.0); HGB 13.3 g/dL (13.5-17.5); Immature Grans % 0.4; Lymphocytes % 29.3; MCH 28.9 pg (27.0-33.0); MCHC 34.6 % (32.0-36.0); MCV 83.5 fL (80-95); MPV 11.5 fL (8.0-11.0); Monocytes % 7.2; Neutrophils % 58.6; Nucleated RBC 0 %; Platelet Count 168 10^3/uL (130-400); RDW 14.1 % (11.8-14.1); RDW-SD 42.4 fL; WBC 4.74 10^3/uL (4.4-10.8)
[2020-10-22 20:54] LABS: Hemoglobin A1C 7.8 % (<5.7)
[2020-10-22 20:57] LABS: ALT 28 U/L (16-63); AST 12 U/L (15-37); Alkaline Phosphatase 66 U/L (46-116); Anion Gap 12.1 mmol/L (3-11); BUN 22 mg/dL (7-18); Bilirubin, Total 0.5 mg/dL (0.2-1.0); CO2 22.9 mmol/L (21.0-32.0); CREATININE 1.2 mg/dL (0.70-1.30); Calcium 8.7 mg/dL (8.5-10.1); Chloride 103 mmol/L (98-107); Cholesterol 168 mg/dL (<200); Glucose 260 mg/dL (74-106); HDL Cholesterol 28 mg/dL (40-60); Potassium 4.1 mmol/L (3.5-5.1); Sodium 138 mmol/L (136-145); Total Protein 7.4 g/dL (6.4-8.2); Triglyceride 435 mg/dL (<150)
[2020-10-22 21:17] LABS: FREE T4 1.65 ng/dL (0.76-1.46)
[2020-10-22 21:30] LABS: LDL CHOLESTEROL 78 mg/dL (<100)
[2020-10-25 09:00] LABS: PSA, Screening 0.4 ng/mL (0.0-4.5)
== END 2020-10-22 20:06 | disposition home or self-care (01) ==
LOC: NCHCN 20:05
PROVIDERS: PCP Family Medicine; Visit Provider Family Medicine
DX: E11.65 Type 2 diabetes mellitus with hyperglycemia (principal); E78.5 Hyperlipidemia, unspecified; E03.9 Hypothyroidism, unspecified; N28.9 Disorder of kidney and ureter, unspecified; K76.0 Fatty (change of) liver, not elsewhere classified; Z12.5 Encounter for screening for malignant neoplasm of prostate
CPT/HCPCS: 80053; 80061; 83721; 84153; 83036; 84439; 85025

== ENCOUNTER 2021-03-11 01:11 | Outpatient (CLI) | payer OTHER, SELFPAY ==
[2021-03-11 11:27] LABS: HCT 39.5 % (40.0-50.0); HGB 13.2 g/dL (13.5-17.5); MCH 29.5 pg (27.0-33.0); MCHC 33.4 % (32.0-36.0); MCV 88.2 fL (80-95); MPV 9.6 fL (8.0-11.0); Platelet Count 165 10^3/uL (130-400); RBC 4.48 10^6/uL (4.36-5.78); RDW 13.8 % (11.8-14.1); RDW-SD 43.9 fL; WBC 6.24 10^3/uL (4.4-10.8)
[2021-03-11 11:40] LABS: INR 2.6 (0.9-1.1); Prothrombin Time 25.1 sec (9.3-11.0)
[2021-03-11 12:53] LABS: ALT 32 U/L (16-63); AST 17 U/L (15-37); Albumin 3.9 g/dL (3.4-5.0); Anion Gap 13.8 mmol/L (3-11); BUN 23 mg/dL (7-18); Bilirubin, Total 0.7 mg/dL (0.2-1.0); CO2 24.2 mmol/L (21.0-32.0); CREATININE 1.2 mg/dL (0.70-1.30); Calculated LDL 70 mg/dL (<100); Chloride 104 mmol/L (98-107); Cholesterol 153 mg/dL (<200); Glucose 158 mg/dL (74-106); HDL Cholesterol 30 mg/dL (40-60); Potassium 3.9 mmol/L (3.5-5.1); Sodium 142 mmol/L (136-145); Total Protein 7.2 g/dL (6.4-8.2); Triglyceride 268 mg/dL (<150)
[2021-03-11 13:15] LABS: Alkaline Phosphatase 62 U/L (46-116); Creatine Kinase 93 U/L (39-308); FREE T4 1.38 ng/dL (0.76-1.46)
[2021-03-13 12:25] LABS: Hepatitis C Ab w Rflx HCV PCR Negative (Negative)
[2021-03-14 10:15] LABS: HBs Antibody, Quant <3.1 mIU/mL (See Note); Hepatitis B Surface Ab Negative (See Note)
== END 2021-03-11 01:12 | disposition home or self-care (01) ==
PROVIDERS: PCP Family Medicine; Visit Provider Family Medicine
DX: E03.9 Hypothyroidism, unspecified (principal); K76.0 Fatty (change of) liver, not elsewhere classified; E11.65 Type 2 diabetes mellitus with hyperglycemia; R20.2 Paresthesia of skin; Z79.01 Long term (current) use of anticoagulants; Z11.59 Encounter for screening for other viral diseases
CPT/HCPCS: 36415; 80053; 80061; 82550; 85027; 86706; 86803; 84439; 85610

== ENCOUNTER 2021-12-01 09:30 | Emergency (ER) | payer BC, SELFPAY ==
[2021-12-01 09:38] VITALS: BP 168/66; PULSE 82; RESP 18; TEMP 36.8; O2SAT 95
--- NOTE | 2021-12-01 10:12 | DI.RAD_ITS ---
Exam(s) XR FOOT RT COMPLETE EXAM: XR FOOT RT COMPLETE CLINICAL HISTORY: pain/swelling ankle, r/o fx. TECHNIQUE: 2D digital imaging was performed. COMPARISON: No exams were available for comparison FINDINGS: 3 views No evidence of fracture or diastasis of the Lisfranc joint. Vascular calcifications noted proximally and distally in the foot. No evidence of osteomyelitis. Mild degenerative changes in the great toe metatarsophalangeal joint, seen on the lateral view. There is some subcutaneous swelling distally in the foot but no radiopaque foreign body. No fracture . No radiographic evidence of osteomyelitis. IMPRESSION: DATA REPOSITORY: RADIATION DOSE DELIVERED:
--- NOTE | 2021-12-01 10:12 | DI.RAD_ITS ---
Exam(s) XR ANKLE RT COMPLETE EXAM: XR ANKLE RT COMPLETE CLINICAL HISTORY: pain/swellling in ankle, inj 2 months ago. TECHNIQUE: 2D digital imaging was performed. COMPARISON: No exams were available for comparison FINDINGS: 3 views No fracture nor widening ankle mortise. Talar dome unremarkable. No degenerative changes in the ank le and subtalar joints. Enthesophyte noted at the Achilles insertion on the posterior aspect of the calcaneus. The Achilles tendon itself is thickened. In addition there is vascular calcification not ed. IMPRESSION: No fractures nor degenerative changes. Achilles tendon thickening noted. Vascular calcification evident. DATA REPOSITORY: RADIATION DOSE DELIVERED:
--- NOTE | 2021-12-01 11:10 | ED.GENADUL_ITS ---
Discharge Plan Disposition Patient Disposition: HOME Condition: Stable Discharge Details Clinical Impression: Right ankle swelling, Right foot pain Primary Care Provider: Yohana Prado V ED Provider: Maria Teresa Turner Home Meds and New Rx's Prescriptions: Continued losartan 50 mg Tablet 50 mg PO DAILY atorvastatin 20 mg Tablet 20 mg PO HS warfarin 5 mg Tablet 5 mg PO DIRECTED insulin lispro [Humalog KwikPen Insulin] 100 unit/mL Insulin Pen 10 unit SUBCUT DIRECTED Rx Instructions: 10-20 units 4 times at meals lidocaine 5 % Ointment 1 applic TOPICAL QID PRN Taltz Autoinjector 80 mg/mL Auto-Injector 80 mg SUBCUT DIRECTED Rx Instructions: one injection from auto injector [id number] warfarin [Coumadin] 10 MG tablet 10 mg PO DAILY Label Comments: 15 mg on Sunday, 12.5 mg on Sunday and 10 mg the rest of the days metformin [Glucophage] 1,000 MG tablet 1,000 mg PO BID aspirin [Aspirin Low-Strength] 81 MG tablet,chewable 81 mg PO DAILY levothyroxine [Synthroid] 200 MCG tablet 250 mcg PO DAILY metoprolol tartrate 25 MG tablet 25 mg PO BID Cosentyx 150 MG/ML syringe 300 mg IM PER PROTOCOL insulin aspart U-100 [Novolog PenFill U-100 Insulin] 100 UNIT/ML cartridge SQ PRN PRN Label Comments: sliding scale Levemir FlexTouch U-100 Insuln 300 UNITS/3 ML insulin pen 32 unit SQ BID Discharge Instructions Instructions: Ankle Sprain (ED), Leg Pain (ED), Swollen Ankle Joint (ED) Additional Instructions: Rest, ice, and elevate the affected area as much as possible. Take Tylenol as needed and directed for pain. Call your primary care doctor and Dr. Garcia at the [facility] for reevaluation in the next 1-2 weeks. Return immediately to the emergency department if you develop any worsening or new concerning symptoms. Discharge Data Discharge Physician: Maria Teresa Turner Medical Decision Making 65-year-old male with a history of obesity, hypothyroidism, hyperlipidemia, diabetes and aortic valve replacement on warfarin presents for right ankle swelling and right foot pain since last night. Admits to injury 2 months ago in which he twisted his ankle but had not sought medical treatment. Increased ambulation a few days ago but no new injury. Denies fever or erythema. Patient appears comfortable and nontoxic. His right medial and lateral malleolus is edematous but without significant warmth, tenderness, crepitus, induration or fluctuance. His right dorsal foot is also edematous but no significant tenderness to palpation. Achilles tendon taut and nontender. There is no erythema to his ankle or foot and history and presentation does not appear consistent with gout or cellulitis, or achilles tendon injury or rupture. He is neurovascular intact. There is no deformity. Patient referred for x-rays which noted thickening of the Achilles tendon and swelling in the joint but no evidence of osteomyelitis, fracture or dislocation. Discussed with patient that his symptoms could be consistent with arthritis and or sprain or multifactorial. He is on warfarin so cannot take NSAIDs. We will place a walking boot. He states he is followed by Dr. Garcia at [facility]. Advised to rest, ice and elevate his right leg is much as possible. Advised to call orthopedics for follow-up. Usual and customary return precautions given prior to discharge. Medical Records Medical records reviewed: Yes I reviewed the patient's medical records. Imaging Data Radiologic Study: Radiologist's impression: XR ANKLE RT COMPLETE CLINICAL HISTORY: ? pain/swellling in ankle, inj 2 months ago. ? TECHNIQUE:? 2D digital imaging was performed. COMPARISON:? No exams were available for comparison FINDINGS: 3 views No fracture nor widening ankle mortise.? Talar dome unremarkable.? No degenerative changes in the ankle and subtalar joints.? Enthesophyte noted at the Achilles insertion on the posterior aspect of the calcaneus.? The Achilles tendon itself is thickened.? In addition there is vascular calcification noted. IMPRESSION: No fractures nor degenerative changes.? Achilles tendon thickening noted. Vascular calcification evident. XR FOOT RT COMPLETE CLINICAL HISTORY: ? pain/swelling ankle, r/o fx. ? TECHNIQUE:? 2D digital imaging was performed. COMPARISON:? No exams were available for comparison FINDINGS: 3 views No evidence of fracture or diastasis of the Lisfranc joint.? Vascular calcifications noted proximally and distally in the foot.? No evidence of osteomyelitis.? Mild degenerative changes in the great toe metatarsophalangeal joint, seen on the lateral view. There is some subcutaneous swelling distally in the foot but no radiopaque foreign body.? No fracture.? No radiographic evidence of osteomyelitis. HPI General Mode of arrival: ambulatory . Date/Time Provider Initiated Documentation: 12/01/21 09:49 . Limitations to Documentation: no limitations . Information obtained by: patient . HPI Narrative: Patient is a 55-year-old male who presents to the ED with complaint of right ankle pain and swelling since last night. Patient states he twisted his ankle on October 03 and has had pain and swelling since then but states it has been improving until last night. He states he has had pain in his ankle and overlying his Achilles in September but states this was near resolved. He states last night before bed he noticed increased pain in his foot and swelling in his ankle. He denies any increased pain in his ankle. He denies any new injury yesterday but states 3 days ago he was walking around a fair for a good amount of time. He denies any fever, redness or injury. Related Data Home Medications Medication Instructions Recorded Confirmed aspirin 81 mg chewable tablet 81 mg PO DAILY 11/11/13 09/23/20 (Aspirin Low-Strength) levothyroxine 200 mcg tablet 250 mcg PO DAILY 11/11/13 09/23/20 (Synthroid) metformin 1,000 mg tablet 1,000 mg PO BID 11/11/13 09/23/20 (Glucophage) metoprolol tartrate 25 mg tablet 25 mg PO BID 11/11/13 09/23/20 warfarin 10 mg tablet (Coumadin) 10 mg PO DAILY 11/11/13 09/23/20 insulin aspart U-100 100 unit/mL units SQ PRN PRN 04/29/17 05/28/19 subcutaneous cartridge (Novolog PenFill U-100 Insulin aspart) insulin detemir U-100 100 unit/mL 32 unit SQ BID 04/29/17 09/23/20 (3 mL) subcutaneous pen (Levemir FlexTouch U-100 Insulin) secukinumab 150 mg/mL subcutaneous 300 mg IM PER PROTOCOL 04/29/17 05/28/19 syringe (Cosentyx) atorvastatin 20 mg tablet 20 mg PO HS 05/19/19 09/23/20 insulin lispro 100 unit/mL 10 unit subcut DIRECTED 05/19/19 09/23/20 subcutaneous pen (Humalog KwikPen (U-100) Insulin) ixekizumab 80 mg/mL subcutaneous 80 mg subcut DIRECTED 05/19/19 05/19/19 auto-injector (Taltz Autoinjector) lidocaine 5 % topical ointment 1 applic topical QID PRN 05/19/19 05/19/19 losartan 50 mg tablet 50 mg PO DAILY 05/19/19 09/23/20 warfarin 5 mg tablet 5 mg PO DIRECTED 05/19/19 Allergies Allergy/AdvReac Type Severity Reaction Status Date / Time lisinopril Allergy Severe Unverified 12/01/21 09:59 Penicillins Allergy Severe Swelling/Ed Unverified 12/01/21 09:59 omar cyclosporine Allergy Mild Unverified 12/01/21 09:59 infliximab [From Remicade] AdvReac Severe Gave him Unverified 12/01/21 09:59 Lopus adalimumab [From Humira] AdvReac Intermediate Skin Rash Unverified 12/01/21 09:59 clindamycin AdvReac Intermediate Skin Rash Unverified 12/01/21 09:59 ustekinumab [From Stelara] AdvReac Intermediate Skin Rash Unverified 12/01/21 09:59 General Stated Complaint: Orthopedic LEDA: 4 Review of Systems All systems reviewed & are unremarkable except as noted in HPI and below Constitutional Constitutional: Reports as per HPI, Denies chills and Denies fever(s) Eyes Eyes: Denies blurry vision ENT Ears, Nose, Mouth, and Throat: Denies dizziness, Denies sore throat and Denies throat swelling Cardiovascular Cardiovascular: Denies chest pain and Denies dyspnea Respiratory Respiratory: Denies cough and Denies dyspnea Gastrointestinal Gastrointestinal: Denies abdominal pain, Denies diarrhea and Denies vomiting Genitourinary Genitourinary: Denies hematuria and Denies dysuria Musculoskeletal Musculoskeletal: Denies back pain and Denies numbness Comments: Right ankle/foot pain and swelling Integumentary/Breasts Skin/Breast: Denies lesions and Denies rash Neurologic Neurologic: Denies dizziness, Denies localized weakness and Denies numbness Allergic/Immunologic Allergic/Immunologic: Denies throat swelling PFSH All Active Problems (Updated 12/01/21 @ 11:27 by Maria Teresa Turner DO) Hand laceration (Acute) Multiple lacerations (Acute) Right ankle swelling (Acute) Right foot pain (Acute) Medical History (Updated 12/01/21 @ 11:27 by Maria Teresa Turner DO) Aortic stenosis Bilateral shoulder pain Cervicalgia Daytime somnolence Diabetes mellitus Elbow pain, right Endocarditis Fatty liver History of anticoagulant therapy Hx of sepsis Hyperlipidemia Hypothyroid Lupus transient, from Remicaide Murmur Paresthesia of both hands Psoriasis Radial nerve dysfunction Renal insufficiency Sleepiness Surgical History H/O aortic valve replacement Social History (Updated 05/28/19 @ 12:00 by Glendy Barnett) Smoking/Tobacco Use Status: Former Tobacco Use Smoking risk assessment performed?: Yes Alcohol Intake: never Drug use: Never Substance use type: does not use Household members: spouse Housing: house Number of Children: 2 current occupation: [employer] What type of physical activity do you participate in: walking and independent ambulation Do you feel safe at home: Yes Do you feel safe in your relationship?: Yes Exam Const General: cooperative, healthy appearing and no acute distress Orientation: alert, awake and oriented x3 HENMT Head: normal to inspection Mouth: oral mucosae normal Eyes General: appearance normal, both eyes and all related structures Neck Neck: normal visual inspection Resp Effort & Inspection: normal respiratory effort and able to speak in complete sentences Cardio Rate: regular rate Skin General skin exam: no rashes or lesions noted Neuro General: patient alert, patient awake and patient oriented x3 Motor: muscle tone normal throughout Extrem Ankle/foot/toe images: 1. Edema. No erythema, ecchymosis, rash, lesions. 2. Edema. No erythema, ecchymosis, rash, lesions. Other: No significant tenderness to palpation to the right ankle or foot. Right DP and PT pulses intact. Psych Appearance: grossly normal Affect: normal affect Course Vital Signs Vital signs: Vital Signs Temperature 98.2 F 12/01/21 09:38 Pulse 82 12/01/21 09:38 Respiratory Rate 18 12/01/21 09:38 Blood Pressure 168/66 H 12/01/21 09:38 Pulse Oximetry 95 12/01/21 09:38 Temperature 98.2 F 12/01/21 09:38 Temperature Source Temporal Artery Scan 12/01/21 09:38 Pulse 82 12/01/21 09:38 Respiratory Rate 18 12/01/21 09:38 Blood Pressure 168/66 H 12/01/21 09:38 Blood Pressure Position Sitting 12/01/21 09:38 Pulse Oximetry 95 12/01/21 09:38 Oxygen Delivery Method Room Air 12/01/21 09:38 Oxygen Flow Rate 0 12/01/21 09:38 Pain Level 10 12/01/21 09:38
== END 2021-12-01 11:33 | disposition home or self-care (01) ==
PROVIDERS: Emergency Provider Physician Assistant; PCP Family Medicine
DX: M25.471 Effusion, right ankle (principal); M79.671 Pain in right foot; E11.9 Type 2 diabetes mellitus without complications; R60.0 Localized edema; Z95.4 Presence of other heart-valve replacement; Z79.01 Long term (current) use of anticoagulants; Z79.84 Long term (current) use of oral hypoglycemic drugs; Z79.82 Long term (current) use of aspirin; Z79.4 Long term (current) use of insulin; Z87.891 Personal history of nicotine dependence
CPT/HCPCS: 99283; 73610; 73630; 99282

== ENCOUNTER 2022-02-21 18:02 | Outpatient (REF) | payer BC, SELFPAY ==
[2022-02-21 15:44] LABS: TSH (W/Ref FT4) 3.35 uIU/mL (0.36-3.74)
== END 2022-02-21 18:03 | disposition home or self-care (01) ==
LOC: NCHCN 18:02
PROVIDERS: PCP Family Medicine; Visit Provider Family Medicine
DX: E03.9 Hypothyroidism, unspecified (principal)
CPT/HCPCS: 84439; 84443

== ENCOUNTER 2022-03-07 20:45 | Outpatient (REF) | payer BC, SELFPAY ==
[2022-03-09 11:43] LABS: COVID-19 RT-PCR UVMMC Result Negative (Negative)
== END 2022-03-07 20:46 | disposition home or self-care (01) ==
LOC: NCHCN 20:45
PROVIDERS: PCP Family Medicine; Visit Provider Family Medicine
DX: J06.9 Acute upper respiratory infection, unspecified (principal); Z20.822 Contact with and (suspected) exposure to COVID-19
CPT/HCPCS: U0003

== ENCOUNTER 2022-03-17 12:56 | Outpatient (REF) | payer BC, SELFPAY ==
[2022-03-17 14:44] LABS: MCH 28.3 pg (27.0-33.0); MCHC 32.6 % (32.0-36.0); MCV 87 fL (80-95); MPV 10.6 fL (8.0-11.0); Platelet Count 226 10^3/uL (130-400); RBC 4.94 10^6/uL (4.36-5.78); RDW 13.3 % (11.8-14.1); RDW-SD 42.1 fL; WBC 7.84 10^3/uL (4.4-10.8)
[2022-03-17 15:07] LABS: ALT 48 U/L (16-63); AST 40 U/L (15-37); Albumin 3.6 g/dL (3.4-5.0); Alkaline Phosphatase 78 U/L (46-116); Anion Gap 11.8 mmol/L (3-11); BUN 36 mg/dL (7-18); Bilirubin, Total 0.4 mg/dL (0.2-1.0); CO2 23.2 mmol/L (21.0-32.0); CREATININE 1.3 mg/dL (0.70-1.30); Calcium 8.7 mg/dL (8.5-10.1); Chloride 100 mmol/L (98-107); Estimated GFR 60.96 (mL/min/1.73m2); Glucose 265 mg/dL (74-106); Potassium 4.4 mmol/L (3.5-5.1); Sodium 135 mmol/L (136-145); Total Protein 7.1 g/dL (6.4-8.2)
== END 2022-03-17 12:57 | disposition home or self-care (01) ==
LOC: NCHCN 12:56
PROVIDERS: PCP Family Medicine; Visit Provider Family Medicine
DX: Z01.818 Encounter for other preprocedural examination (principal); Z01.812 Encounter for preprocedural laboratory examination
CPT/HCPCS: 80053; 85027

== ENCOUNTER 2022-06-09 10:45 | Emergency (ER) | payer BC, SELFPAY ==
[2022-06-09] VITALS (17 sets, daily range): BP systolic 111–143; BP diastolic 60–91; PULSE 54–80; RESP 13–28; TEMP 36.3; O2SAT 95
--- NOTE | 2022-06-09 11:15 | RT.EKG_ITS ---
APPROVED REPORT Exam: Resting ECG Reason for Exam: Dizziness Patient Location: E HR:64 bpm ECG Measurements Heart Rate 64 AXIS WV 200 P 32 QRSd 182 QRS -29 QT 499 T 117 QTc 506 Conclusion Sinus rhythm...normal P axis, V-rate 60- 99 Ventricular premature complex...V complex w/ short R-R interval Left bundle branch block...QRSd>120, broad/notched R ST elevation secondary to IVCD...Multiple VCG criteria
--- NOTE | 2022-06-09 11:41 | ED.GENADUL_ITS ---
Discharge Plan Disposition Patient Disposition: Home Discharge Details Clinical Impression: Dizziness Primary Care Provider: Yohana Prado V ED Provider: Dolores Yanes Home Meds and New Rx's Prescriptions: New meclizine 25 mg tablet 25 mg PO BID PRN (Reason: dizziness) Qty: 14 0RF Rx Instructions: Take 1 tablet 2-3 times a day as needed for dizziness Continued losartan 50 mg Tablet 50 mg PO DAILY atorvastatin 20 mg Tablet 20 mg PO HS warfarin 5 mg Tablet 5 mg PO DIRECTED insulin lispro [Humalog KwikPen Insulin] 100 unit/mL Insulin Pen 10 unit SUBCUT DIRECTED Rx Instructions: 10-20 units 4 times at meals lidocaine 5 % Ointment 1 applic TOPICAL QID PRN [employer] Autoinjector 80 mg/mL Auto-Injector 80 mg SUBCUT DIRECTED Rx Instructions: one injection from auto injector [id number] warfarin [Coumadin] 10 MG tablet 10 mg PO DAILY Patient Comments: 15 mg on Sunday, 12.5 mg on Sunday and 10 mg the rest of the days metformin [Glucophage] 1,000 MG tablet 1,000 mg PO BID aspirin [Aspirin Low-Strength] 81 MG tablet,chewable 81 mg PO DAILY levothyroxine [Synthroid] 200 MCG tablet 250 mcg PO DAILY metoprolol tartrate 25 MG tablet 25 mg PO BID Cosentyx 150 MG/ML syringe 300 mg IM PER PROTOCOL insulin aspart U-100 [Novolog PenFill U-100 Insulin] 100 UNIT/ML cartridge SQ PRN PRN Patient Comments: sliding scale Levemir FlexTouch U-100 Insuln 300 UNITS/3 ML insulin pen 32 unit SQ BID Discharge Instructions Instructions: Dizziness (ED) Additional Instructions: Please take the meclizine as prescribed. Return to the ER for any worsening headache, dizziness, recurrent nausea vomiting, chest pain or any concerns. CT is within normal limits no evidence of heart attack. Labs are largely within normal limits. Follow up with primary care provider in 3-5 days. Return to ED sooner if any worsening or concerns. Increase oral fluids. Referrals: Yohana Prado MD [Primary Care Provider] - 3 days Medical Decision Making 66-year-old male presents to the ER with chief complaint of cute onset of dizziness associated with nausea and vomiting which occurred while at work prior to arrival. He denies any headache, blurry vision or chest pain. He reports he did lose his balance. Does have a past medical history of aortic valve replacement, endocarditis, hypothyroidism hyperlipidemia, renal insufficiency, insulin-dependent diabetes, he is on Coumadin. EKG was reviewed by Dr. Germán Mcleod ER attending, no old EKG available for review. EKG shows a left bundle branch block. Work-up ordered including CBC CMP serial troponins, urinalysis PT PTT and TSH. Meclizine, head CT and 4 mg Zofran ordered. Differential diagnosis includes but not limited to vertigo, central vertigo, CVA, CAD, MT CBC shows white blood cells 4.12, RDW 14.3 platelets 103, PT is 20.1 INR 2.0, CMP shows glucose of 180, TSH is high at 6.47, free T4 added on. We will consider MRI to rule out posterior CVA. 1333: INformed by rn staffing that patient is feeling better after the meclizine. CT results are pending at this time. CT within normal limits. On patient reevaluation he reports that the dizziness has subsided. I did discuss repeat troponin he is agreeable to wait for that result. He does feel well enough to be discharged home. He does see cardiology at [facility] and just recently had an appointment with them. This text was generated using [employer] dictation system, please disregard any oddities of phrase or misspellings. Medical Records Medical records reviewed: Yes I reviewed the patient's medical records. Imaging Data Radiologic Study: Imaging: X-Ray Radiologist's impression: CLINICAL HISTORY:? Dizziness TECHNIQUE:? 2D digital imaging was performed of the chest.? Two images were obtained.? PA and lateral views were obtained. COMPARISON:? CR CHEST 2 VIEWS PA,LAT from 12/17/2012 FINDINGS: MEDIASTINUM: Normal.? HEART: Normal. PULMONARY VASCULATURE: There is an aortic valve replacement.? LUNGS: There are increased interstitial markings in both lungs.? No focal consolidating infiltrate is seen. ? PLEURAL SPACE: No pleural effusion or pneumothorax. BONE:Within normal limits for the patient's age.? Sternal wires are in place. OTHER FINDINGS:Normal.? IMPRESSION: Diffuse interstitial disease.? This may be chronic but an acute interstitial edema or pneumonitis cannot be excluded.? Please correlate clinically. No focal consolidations.? Radiologic Study #2: Imaging: CT Scan Radiologist's impression: EXAM: ? CT HEAD WO CLINICAL HISTORY: ? Dizziness. ? TECHNIQUE:? Imaging Protocol: Axial computed tomography images with coronal and sagittal reformatted images were created and reviewed COMPARISON:? No exams were available for comparison FINDINGS: Ventricles and Extra axial spaces: Normal in size and morphology for the patient's age. Hemorrhage: None. Cerebral parenchyma: No acute territorial infarct.? There are areas of decreased attenuation in the white matter consistent with small vessel ischemic disease.? Midline shift: None. Brainstem/Cerebellum: Normal. Calvarium: Normal. Visualized Paranasal sinuses/Mastoids: Clear. Soft Tissues: Unremarkable. IMPRESSION: 1. No acute intracranial process.? 2. Findings were discussed with the emergency department at 1:58 p.m. on 06/09/2022. Lab Data Lab results reviewed: Yes I reviewed the patient's lab results. Labs: Laboratory Tests Range/Units 06/09/22 06/09/22 06/09/22 11:45 11:45 11:45 WBC (4.4-10.8) 10^3/uL 4.12 L RBC (4.36-5.78) 10^6/uL 5.06 Hgb (13.5-17.5) g/dL 14.5 Hct (40.0-50.0) % 43.8 MCV (80-95) fL 87 MCH (27.0-33.0) pg 28.7 MCHC (32.0-36.0) % 33.1 RDW (11.8-14.1) % 14.3 H Plt Count (130-400) 10^3/uL 103 L MPV (8.0-11.0) fL 10.3 Immature Gran % 0.5 Neutrophils % 66.9 Lymphocytes % 22.6 Monocytes % 7.3 Eosinophils % 1.7 Basophils % 1.0 Nucleated RBC % (0.0-0.3) % 0.0 Absolute Neutrophils (1.2-6.7) 10^3/uL 2.76 Absolute Lymphocytes (1.2-3.4) 10^3/uL 0.93 L Absolute Monocytes (0.1-0.8) 10^3/uL 0.30 Absolute Eosinophils (0.0-0.7) 10^3/uL 0.07 Absolute Basophils (0.0-0.2) 10^3/uL 0.04 PT (9.3-11.0) sec 20.1 H INR (0.9-1.1) 2.0 H APTT (21.5-31.9) sec 29.6 Sodium (136-145) mmol/L 142 Potassium (3.5-5.1) mmol/L 3.9 Chloride (98-107) mmol/L 105 Carbon Dioxide (21.0-32.0) mmol/L 27.6 Anion Gap (3-11) mmol/L 9.4 BUN (7-18) mg/dL 18 Creatinine (0.70-1.30) mg/dL 1.2 Est GFR (CKD-EPI 2020) (mL/min/1.73m2) 67.11 Glucose (74-106) mg/dL 180 H Calcium (8.5-10.1) mg/dL 8.7 Magnesium (1.8-2.4) mg/dL 1.8 Total Bilirubin (0.2-1.0) mg/dL 0.6 AST (15-37) U/L 24 ALT (16-63) U/L 28 Alkaline Phosphatase (46-116) U/L 70 Troponin I (<or=60) ng/L < 50 Total Protein (6.4-8.2) g/dL 7.0 Albumin (3.4-5.0) g/dL 3.4 TSH (0.36-3.74) uIU/mL 6.47 H Thyroxine (T4) (4.7-13.3) ug/dL Range/Units 06/09/22 11:45 WBC (4.4-10.8) 10^3/uL RBC (4.36-5.78) 10^6/uL Hgb (13.5-17.5) g/dL Hct (40.0-50.0) % MCV (80-95) fL MCH (27.0-33.0) pg MCHC (32.0-36.0) % RDW (11.8-14.1) % Plt Count (130-400) 10^3/uL MPV (8.0-11.0) fL Immature Gran % Neutrophils % Lymphocytes % Monocytes % Eosinophils % Basophils % Nucleated RBC % (0.0-0.3) % Absolute Neutrophils (1.2-6.7) 10^3/uL Absolute Lymphocytes (1.2-3.4) 10^3/uL Absolute Monocytes (0.1-0.8) 10^3/uL Absolute Eosinophils (0.0-0.7) 10^3/uL Absolute Basophils (0.0-0.2) 10^3/uL PT (9.3-11.0) sec INR (0.9-1.1) APTT (21.5-31.9) sec Sodium (136-145) mmol/L Potassium (3.5-5.1) mmol/L Chloride (98-107) mmol/L Carbon Dioxide (21.0-32.0) mmol/L Anion Gap (3-11) mmol/L BUN (7-18) mg/dL Creatinine (0.70-1.30) mg/dL Est GFR (CKD-EPI 2020) (mL/min/1.73m2) Glucose (74-106) mg/dL Calcium (8.5-10.1) mg/dL Magnesium (1.8-2.4) mg/dL Total Bilirubin (0.2-1.0) mg/dL AST (15-37) U/L ALT (16-63) U/L Alkaline Phosphatase (46-116) U/L Troponin I (<or=60) ng/L Total Protein (6.4-8.2) g/dL Albumin (3.4-5.0) g/dL TSH (0.36-3.74) uIU/mL Thyroxine (T4) (4.7-13.3) ug/dL 10.4 HPI General Mode of arrival: ambulatory . Date/Time Provider Initiated Documentation: 06/09/22 11:13 . Limitations to Documentation: no limitations . Information obtained by: patient, family, RN notes reviewed and old records reviewed . HPI Narrative: 66-year-old male presents to the ER with chief complaint of cute onset of dizziness associated with nausea and vomiting which occurred while at work prior to arrival. He denies any headache, blurry vision or chest pain. He reports he did lose his balance. Does have a past medical history of aortic valve r eplacement, endocarditis, hypothyroidism hyperlipidemia, renal insufficiency, insulin-dependent diabetes, he is on Coumadin. Related Data Home Medications Medication Instructions Recorded Confirmed aspirin 81 mg chewable tablet 81 mg PO DAILY 08/12/14 06/24/21 (Aspirin Low-Strength) levothyroxine 200 mcg tablet 250 mcg PO DAILY 11/11/13 09/23/20 (Synthroid) metformin 1,000 mg tablet 1,000 mg PO BID 11/11/13 09/23/20 (Glucophage) metoprolol tartrate 25 mg tablet 25 mg PO BID 11/11/13 09/23/20 warfarin 10 mg tablet (Coumadin) 10 mg PO DAILY 11/11/13 09/23/20 insulin aspart U-100 100 unit/mL units SQ PRN PRN 04/29/17 05/28/19 subcutaneous cartridge (Novolog PenFill U-100 Insulin aspart) insulin detemir U-100 100 unit/mL 32 unit SQ BID 04/29/17 09/23/20 (3 mL) subcutaneous pen (Levemir FlexTouch U-100 Insulin) secukinumab 150 mg/mL subcutaneous 300 mg IM PER PROTOCOL 04/29/17 05/28/19 syringe (Cosentyx) atorvastatin 20 mg tablet 20 mg PO HS 05/19/19 09/23/20 insulin lispro 100 unit/mL 10 unit subcut DIRECTED 05/19/19 09/23/20 subcutaneous pen (Humalog KwikPen (U-100) Insulin) ixekizumab 80 mg/mL subcutaneous 80 mg subcut DIRECTED 05/19/19 05/19/19 auto-injector ([employer]tz Autoinjector) lidocaine 5 % topical ointment 1 applic topical QID PRN 05/19/19 05/19/19 losartan 50 mg tablet 50 mg PO DAILY 05/19/19 09/23/20 warfarin 5 mg tablet 5 mg PO DIRECTED 05/19/19 meclizine 25 mg tablet 25 mg PO BID PRN dizziness #14 tabs 06/09/22 Previous Rx's Medication Instructions Recorded meclizine 25 mg tablet 25 mg PO BID PRN dizziness #14 tabs 06/09/22 Allergies Allergy/AdvReac Type Severity Reaction Status Date / Time lisinopril Allergy Severe Unverified 12/01/21 09:59 Penicillins Allergy Severe Swelling/Ed Unverified 12/01/21 09:59 omar cyclosporine Allergy Mild Unverified 12/01/21 09:59 infliximab [From Remicade] AdvReac Severe Gave him Unverified 12/01/21 09:59 Lopus adalimumab [From Humira] AdvReac Intermediate Skin Rash Unverified 12/01/21 09:59 clindamycin AdvReac Intermediate Skin Rash Unverified 12/01/21 09:59 ustekinumab [From Stelara] AdvReac Intermediate Skin Rash Unverified 12/01/21 09:59 General Stated Complaint: Dizzy/Sync LEDA: 3 Review of Systems All systems reviewed & are unremarkable except as noted in HPI and below Constitutional Constitutional: Reports as per HPI, Denies headache(s) and Denies weakness Eyes Eyes: Denies diplopia ENT Ears, Nose, Mouth, and Throat: Reports dizziness and Denies headache(s) Cardiovascular Cardiovascular: Denies chest pain and Reports dyspnea Respiratory Respiratory: Denies cough and Reports dyspnea Gastrointestinal Gastrointestinal: Denies abdominal pain, Reports nausea and Reports vomiting Neurologic Neurologic: Reports dizziness, Denies headache(s) and Denies weakness PFSH All Active Problems (Updated 06/09/22 @ 15:17 by Dolores Yanes NP) Hand laceration (Acute) Multiple lacerations (Acute) Dizziness (Acute) Medical History Aortic stenosis Bilateral shoulder pain Cervicalgia Daytime somnolence Diabetes mellitus Elbow pain, right Endocarditis Fatty liver History of anticoagulant therapy Hx of sepsis Hyperlipidemia Hypothyroid Lupus transient, from Remicaide Murmur Paresthesia of both hands Psoriasis Radial nerve dysfunction Renal insufficiency Sleepiness Surgical History H/O aortic valve replacement Social History Smoking/Tobacco Use Status: Former Tobacco Use Smoking risk assessment performed?: Yes Alcohol Intake: never Drug use: Never Substance use type: does not use Household members: spouse Housing: house Number of Children: 2 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 Appears stated age. Normal body habitus. Head: Normocephalic, no trauma. Eyes: Pupils PERRL, Red reflex noted, EOM's intact. Eyelids symmetrical without lesions, discharge, or swelling. ENT: Bilateral TM's WNL, External ear normal to inspection, no mastoid TTP, swelling, or erythema, Nasal turbinates WNL, no nasal discharge. Normal dentition, Posterior pharynx WNL, no exudate. Chest: RRR, Normal S1, S2, distal pulses intact. Resp: Lungs clear to auscultation bilaterally, no wheezes, rales, or rhonchi. Abdomen: Soft, non-distended, Normoactive bowel sounds all 4 quads. Musculoskeletal: Normal gait, 5/5 strength to all four extremities. Skin: No suspicious rashes or lesions. Capillary refill less than 2 sec. Neurologic: Cranial nerves II-XII intact. Alert and oriented x 3. Motor: No deficits noted. Sensory: Intact bilaterally all 4 extremities. Reflexes: DTR's intact bilaterally.. Does have some horizontal nystagmus with EOMs. Hematologic/Lymphatic: No ecchymosis, no lymphadenopathy. Course Vital Signs Vital signs: Vital Signs Temperature 36.3 C L 06/09/22 11:06 Pulse 65 06/09/22 11:06 Respiratory Rate 20 06/09/22 11:06 Blood Pressure 140/91 H 06/09/22 11:06 Pulse Oximetry 95 06/09/22 11:06 Temperature 36.3 C L 06/09/22 11:06 Temperature Source Oral 06/09/22 11:06 Pulse 65 06/09/22 11:06 Respiratory Rate 20 06/09/22 11:06 Blood Pressure 140/91 H 06/09/22 11:06 Blood Pressure Position Sitting 06/09/22 11:06 Pulse Oximetry 95 06/09/22 11:06 Oxygen Delivery Method Room Air 06/09/22 11:06 Oxygen Flow Rate 0 06/09/22 11:06 Pain Level 0 06/09/22 11:06
[2022-06-09] MEDS: Ondansetron 4 MG/2 ML VIAL IVP (11:50)
[2022-06-09] MEDS: Meclizine 25 MG TAB PO (11:51)
[2022-06-09] MEDS: Normal Saline Flush 10 ML SYR IVP (11:51)
[2022-06-09 11:56] LABS: Abs Immature Grans 0.02 10^3/uL (0.0-0.06); Absolute Basophil Count 0.04 10^3/uL (0.0-0.2); Absolute Eosinophil Count 0.07 10^3/uL (0.0-0.7); Absolute Lymphocyte Count 0.93 10^3/uL (1.2-3.4); Absolute Neutrophil Count 2.76 10^3/uL (1.2-6.7); Eosinophils % 1.7; HCT 43.8 % (40.0-50.0); HGB 14.5 g/dL (13.5-17.5); Immature Grans % 0.5; Lymphocytes % 22.6; MCH 28.7 pg (27.0-33.0); MCHC 33.1 % (32.0-36.0); MCV 87 fL (80-95); MPV 10.3 fL (8.0-11.0); Monocytes % 7.3; Neutrophils % 66.9; Platelet Count 103 10^3/uL (130-400); RBC 5.06 10^6/uL (4.36-5.78); RDW 14.3 % (11.8-14.1); RDW-SD 45.1 fL; WBC 4.12 10^3/uL (4.4-10.8)
[2022-06-09 12:17] LABS: ALT 28 U/L (16-63); AST 24 U/L (15-37); Albumin 3.4 g/dL (3.4-5.0); Alkaline Phosphatase 70 U/L (46-116); Anion Gap 9.4 mmol/L (3-11); BUN 18 mg/dL (7-18); Bilirubin, Total 0.6 mg/dL (0.2-1.0); CO2 27.6 mmol/L (21.0-32.0); CREATININE 1.2 mg/dL (0.70-1.30); Calcium 8.7 mg/dL (8.5-10.1); Chloride 105 mmol/L (98-107); Estimated GFR 67.11 (mL/min/1.73m2); Glucose 180 mg/dL (74-106); Magnesium 1.8 mg/dL (1.8-2.4); Potassium 3.9 mmol/L (3.5-5.1); Sodium 142 mmol/L (136-145); TSH 6.47 uIU/mL (0.36-3.74); Troponin I < 50 ng/L (<or=60)
[2022-06-09 12:23] LABS: PTT Activated 29.6 sec (21.5-31.9); Prothrombin Time 20.1 sec (9.3-11.0)
[2022-06-09 12:42] LABS: T4 10.4 ug/dL (4.7-13.3)
--- NOTE | 2022-06-09 13:25 | DI.RAD_ITS ---
Exam(s) XR CHEST 2V PA LATERAL EXAM: XR CHEST 2V PA LATERAL CLINICAL HISTORY: Dizziness TECHNIQUE: 2D digital imaging was performed of the chest. Two images were obtained. PA and lateral views were obtained. COMPARISON: CR CHEST 2 VIEWS PA,LAT from 12/17/2012 FINDINGS: MEDIASTINUM: Normal. HEART: Normal. PULMONARY VASCULATURE: There is an aortic valve replacement. LUNGS: There are increased interstitial markings in both lungs. No focal consolidating infiltrate is seen. PLEURAL SPACE: No pleural effusion or pneumothorax. BONE:Within normal limits for the patient's age. Sternal wires are in place. OTHER FINDINGS:Normal. IMPRESSION: Diffuse interstitial disease. This may be chronic but an acute interstitial edema or pneumonitis can not be excluded. Please correlate clinically. No focal consolidations. DATA REPOSITORY: RADIATION DOSE DELIVERED:
--- NOTE | 2022-06-09 13:28 | DI.CT_ITS ---
Exam(s) CT HEAD WO EXAM: CT HEAD WO CLINICAL HISTORY: Dizziness. TECHNIQUE: Imaging Protocol: Axial computed tomography images with coronal and sagittal reformatted images were created and reviewed COMPARISON: No exams were available for comparison FINDINGS: Ventricles and Extra axial spaces: Normal in size and morphology for the patient's age. Hemorrhage: None. Cerebral parenchyma: No acute territorial infarct. There are areas of decreased attenuation in the w carina matter consistent with small vessel ischemic disease. Midline shift: None. Brainstem/Cerebellum: Normal. Calvarium: Normal. Visualized Paranasal sinuses/Mastoids: Clear. Soft Tissues: Unremarkable. IMPRESSION: 1. No acute intracranial process. 2. Findings were discussed with the emergency department at 1:58 p.m. on 06/09/2022. RADIATION DOSE DELIVERED: 833.8mGy.cm Total DLP DATA REPOSITORY: All CT scans at this facility are submitted to the National Radiology Data Registry (NRDR) Dose Index Registry (DIR) with the [employer] (A[employer]). RADIATION OPTIMIZATION: All CT scans at this facility use at least one of these dose optimization te chniques: automated exposure control; mA and/or kV adjustment per patient size (includes targeted exa ms where dose is matched to clinical indication); or iterative reconstruction.
[2022-06-09 14:54] LABS: Bilirubin Negative (Negative); Blood Small (Negative); Clarity Clear (Clear); Glucose Negative (Negative); Ketones Negative (Negative); Leukocyte Esterase Negative (Negative); Nitrite Negative (Negative); Specific Gravity 1.025 (1.005-1.025); Urobilinogen 0.2 mg/dL (Up to 0.2)
[2022-06-09 15:06] LABS: Troponin I < 50 ng/L (<or=60)
[2022-06-09 15:22] LABS: Bacteria Rare HPF (Negative); Crystals Negative HPF (Negative); Epithelial Cells Negative HPF (Negative); Other Cells Negative (Negative); RBC 0-2 HPF (0-2); WBC Negative HPF (0-5)
[2022-06-09 15:23] LABS: C & S Indicated? No; Casts Negative LPF (Negative); Mucus Trace (Negative)
== END 2022-06-09 15:31 | disposition home or self-care (01) ==
PROVIDERS: Emergency Provider Registered Nurse Emergency; PCP Family Medicine
DX: R42 Dizziness and giddiness (principal); R11.2 Nausea with vomiting, unspecified; E11.9 Type 2 diabetes mellitus without complications; I44.7 Left bundle-branch block, unspecified
CPT/HCPCS: 36415; 80053; 93005; 96374; 99284; 70450; 71046; 81003; 81015; 83735; 84436; 84443; 84484; 85025; 85610; 85730; 93010; J2405

== ENCOUNTER 2022-06-12 18:00 | Observation (INO) | payer BC, SELFPAY ==
[2022-06-12] VITALS (42 sets, daily range): BP systolic 111–181; BP diastolic 59–129; PULSE 63–100; RESP 17–31; TEMP 36.6–36.8; O2SAT 85–100
--- NOTE | 2022-06-12 18:00 | RT.EKG_ITS ---
APPROVED REPORT Exam: Resting ECG Reason for Exam: sob Patient Location: E HR:92 bpm ECG Measurements Heart Rate 92 AXIS WY 188 P 70 QRSd 174 QRS -28 QT 435 T 130 QTc 528 Conclusion Sinus rhythm...normal P axis, V-rate 60- 99 Left bundle branch block...QRSd>120, broad/notched R ST elevation secondary to IVCD...Multiple VCG criteria
--- NOTE | 2022-06-12 18:26 | ED.GENADUL_ITS ---
Discharge Plan Disposition Patient Disposition: Admit to [facility] Condition: Serious Discharge Details Clinical Impression: Acute exacerbation of CHF (congestive heart failure) Primary Care Provider: Yohana Prado V ED Provider: Pete Wall Home Meds and New Rx's Prescriptions: No Action losartan 50 mg Tablet 50 mg PO DAILY atorvastatin 20 mg Tablet 20 mg PO HS warfarin 5 mg Tablet 5 mg PO DIRECTED insulin lispro [Humalog KwikPen Insulin] 100 unit/mL Insulin Pen 10 unit SUBCUT DIRECTED Rx Instructions: 10-20 units 4 times at meals lidocaine 5 % Ointment 1 applic TOPICAL QID PRN Taltz Autoinjector 80 mg/mL Auto-Injector 80 mg SUBCUT DIRECTED Rx Instructions: one injection from auto injector [id number] warfarin [Coumadin] 10 MG tablet 10 mg PO DAILY Patient Comments: 15 mg on Sunday, 12.5 mg on Sunday and 10 mg the rest of the days metformin [Glucophage] 1,000 MG tablet 500 mg PO BID aspirin [Aspirin Low-Strength] 81 MG tablet,chewable 81 mg PO DAILY levothyroxine [Synthroid] 200 MCG tablet 225 mcg PO DAILY metoprolol tartrate 25 MG tablet 25 mg PO BID Cosentyx 150 MG/ML syringe 300 mg IM PER PROTOCOL insulin aspart U-100 [Novolog PenFill U-100 Insulin] 100 UNIT/ML cartridge SQ PRN PRN Patient Comments: sliding scale Levemir FlexTouch U-100 Insuln 300 UNITS/3 ML insulin pen 40 unit SQ BID meclizine 25 mg tablet 25 mg PO BID PRN (Reason: dizziness) Qty: 14 0RF Rx Instructions: Take 1 tablet 2-3 times a day as needed for dizziness Medical Decision Making 66 yo male with hx of aortic valve replacement on warfarin, htn, who comes in with one day of worsening bilateral leg swelling. He states this has happened a few times in the past but doesn't know the cause. He also has noted mild shortness of breath, no chest pain or fevers. Was seen in the ED 3 days ago for dizziness which has improved since d/c. HE arrives hemodynamically stable, triage o2 saturation was 91% on my exam is 96% on room air. HE is caox4, speaking clearly. He has clear lung sounds, does have pitting edema of both legs up to the mid tibia, no calf tenderness, normal cap refill. Suspect chf given bilateral leg swelling, will obtain cbc, cmp, troponin, probnp, and obtain cta of the chest to evaluate for possible pe vs edema. labs show probnp over 1000, troponin minimally elevated at over 80, he remains chest pain free. He has no pe, does have pulmonary edema and minimal pleural fluid. Of note also possible cirrhosis as well, he denies hx of excessive alcohol use, he states a med he took in the past for psoriasis he was told was stopped due to potential for it hurting his liver. He is not in overt liver failure so doubt this as the cause of his presentation and feel it is likely cardiac in etiology. Will discuss with hospitalist about admission Differential Diagnosis Differential Diagnosis: dvt, chf, pe Imaging Data Radiologic Study: Attestation: I personally reviewed and interpreted this imaging study as follows: Imaging: CT Scan Radiologist's impression: IMPRESSION: No pulmonary emboli observed Mild interstitial edema and minimal pleural fluid Cirrhosis suspected with surrounding mild ascites Lab Data Lab results reviewed: Yes I reviewed the patient's lab results. ECG Data Attestation: I personally reviewed and interpreted this ECG (s) as follows: Prior ECG tracings: available for review Interpretation: sinus, rate of 92, lbbb, no acute changes from prior, negative sgarbossa criteria HPI General Date/Time Provider Initiated Documentation: 06/12/22 18:15 . Limitations to Documentation: no limitations . Information obtained by: patient . History of Present Illness 66 year old M presents to the emergency department with the chief complaint of leg swelling, described as moderate, Patient started experiencing this day(s) (1) and it has been constant. No relieving factors improve symptom(s), No exacerbating factors reported . Patient notes shortness of breath; denies chest pain and fever/chills. Patient did receive the following treatments prior to arrival, none Related Data Home Medications Medication Instructions Recorded Confirmed aspirin 81 mg chewable tablet 81 mg PO DAILY 11/11/13 09/23/20 (Aspirin Low-Strength) levothyroxine 200 mcg tablet 225 mcg PO DAILY 11/11/13 06/12/22 (Synthroid) metformin 1,000 mg tablet 500 mg PO BID 11/11/13 06/12/22 (Glucophage) metoprolol tartrate 25 mg tablet 25 mg PO BID 11/11/13 06/12/22 warfarin 10 mg tablet (Coumadin) 10 mg PO DAILY 11/11/13 06/12/22 insulin aspart U-100 100 unit/mL units SQ PRN PRN 04/29/17 05/28/19 subcutaneous cartridge (Novolog PenFill U-100 Insulin aspart) insulin detemir U-100 100 unit/mL 40 unit SQ BID 04/29/17 06/12/22 (3 mL) subcutaneous pen (Levemir FlexTouch U-100 Insulin) secukinumab 150 mg/mL subcutaneous 300 mg IM PER PROTOCOL 04/29/17 05/28/19 syringe (Cosentyx) atorvastatin 20 mg tablet 20 mg PO HS 05/19/19 06/12/22 insulin lispro 100 unit/mL 10 unit subcut DIRECTED 05/19/19 06/12/22 subcutaneous pen (Humalog KwikPen (U-100) Insulin) ixekizumab 80 mg/mL subcutaneous 80 mg subcut DIRECTED 05/19/19 06/12/22 auto-injector (WhenSoontz Autoinjector) lidocaine 5 % topical ointment 1 applic topical QID PRN 05/19/19 06/12/22 losartan 50 mg tablet 50 mg PO DAILY 05/19/19 06/12/22 warfarin 5 mg tablet 5 mg PO DIRECTED 05/19/19 06/12/22 meclizine 25 mg tablet 25 mg PO BID PRN dizziness #14 tabs 06/09/22 06/12/22 Previous Rx's Medication Instructions Recorded meclizine 25 mg tablet 25 mg PO BID PRN dizziness #14 tabs 06/09/22 Allergies Allergy/AdvReac Type Severity Reaction Status Date / Time lisinopril Allergy Severe Unverified 12/01/21 09:59 Penicillins Allergy Severe Swelling/Ed Unverified 12/01/21 09:59 omar cyclosporine Allergy Mild Unverified 12/01/21 09:59 infliximab [From Remicade] AdvReac Severe Gave him Unverified 12/01/21 09:59 Lopus adalimumab [From Humira] AdvReac Intermediate Skin Rash Unverified 12/01/21 09:59 clindamycin AdvReac Intermediate Skin Rash Unverified 12/01/21 09:59 ustekinumab [From Stelara] AdvReac Intermediate Skin Rash Unverified 12/01/21 09:59 General Stated Complaint: SOB LEDA: 3 Review of Systems All systems reviewed & are unremarkable except as noted in HPI and below Constitutional Constitutional: Denies chills, Denies fever(s) and Denies weakness Cardiovascular Cardiovascular: Denies chest pain Respiratory Respiratory: Denies cough Gastrointestinal Gastrointestinal: Denies abdominal pain, Denies nausea and Denies vomiting Neurologic Neurologic: Denies weakness PFSH All Active Problems (Updated 06/12/22 @ 21:25 by Salvador Sales MD) CHF (congestive heart failure) (Chronic) Hand laceration (Acute) Multiple lacerations (Acute) Dizziness (Acute) Acute exacerbation of CHF (congestive heart failure) (Acute) Medical History Aortic stenosis Bilateral shoulder pain Cervicalgia Daytime somnolence Diabetes mellitus Elbow pain, right Endocarditis Fatty liver History of anticoagulant therapy Hx of sepsis Hyperlipidemia Hypothyroid Lupus transient, from Remicaide Murmur Paresthesia of both hands Psoriasis Radial nerve dysfunction Renal insufficiency Sleepiness Surgical History H/O aortic valve replacement Social History Smoking/Tobacco Use Status: Former Tobacco Use Smoking risk assessment performed?: Yes Alcohol Intake: never Drug use: Never Substance use type: does not use Household members: spouse Housing: house Number of Children: 2 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 [employer] What type of physical activity do you participate in: walking and independent ambulation Do you feel safe at home: Yes Do you feel safe in your relationship?: Yes Exam Const General: no acute distress Orientation: alert HENMT Head: normal to inspection Ears: external ears normal General nose exam: external nose normal Mouth: moist mucous membranes Eyes General: appearance normal, both eyes and all related structures Neck Neck: normal visual inspection Resp Effort & Inspection: normal respiratory effort and able to speak in complete sentences Auscultation: no wheezes Cardio Jugular venous pressure: no JVD Rate: regular rate Skin General skin exam: no rashes or lesions noted Neuro General: patient alert and patient oriented x3 Extrem General: no calf tenderness bilaterally and edema Psych Mental Status: mental status grossly normal Course Vital Signs Vital signs: Vital Signs Temperature 36.6 C 06/12/22 18:07 Pulse 95 H 06/12/22 18:07 Respiratory Rate 20 06/12/22 18:07 Blood Pressure 179/90 H 06/12/22 18:07 Pulse Oximetry 91 L 06/12/22 18:07 Temperature 36.6 C 06/12/22 18:07 Temperature Source Oral 06/12/22 18:07 Pulse 95 H 06/12/22 18:07 Respiratory Rate 20 06/12/22 18:07 Respiratory Effort Short of Breath 06/12/22 18:11 Blood Pressure 179/90 H 06/12/22 18:07 Blood Pressure Position Sitting 06/12/22 18:07 Pulse Oximetry 91 L 06/12/22 18:07 Oxygen Delivery Method Room Air 06/12/22 18:07 Oxygen Flow Rate 0 06/12/22 18:07 Pain Level 8 06/12/22 18:07
[2022-06-12 18:29] LABS: Source Nasal/Nares
[2022-06-12 18:49] LABS: Abs Immature Grans 0.01 10^3/uL (0.0-0.06); Absolute Basophil Count 0.04 10^3/uL (0.0-0.2); Absolute Monocyte Count 0.36 10^3/uL (0.1-0.8); Absolute Neutrophil Count 2.43 10^3/uL (1.2-6.7); Basophils % 0.9; Eosinophils % 2.3; HCT 46.2 % (40.0-50.0); HGB 14.6 g/dL (13.5-17.5); Immature Grans % 0.2; Lymphocytes % 32.3; MCH 28.2 pg (27.0-33.0); MCHC 31.6 % (32.0-36.0); MCV 89 fL (80-95); MPV 10.2 fL (8.0-11.0); Monocytes % 8.3; Platelet Count 99 10^3/uL (130-400); RBC 5.18 10^6/uL (4.36-5.78); RDW 14.3 % (11.8-14.1); RDW-SD 46.3 fL; WBC 4.34 10^3/uL (4.4-10.8)
[2022-06-12 19:05] LABS: ALT 27 U/L (16-63); AST 23 U/L (15-37); Albumin 3.4 g/dL (3.4-5.0); Alkaline Phosphatase 86 U/L (46-116); Anion Gap 10.2 mmol/L (3-11); BUN 19 mg/dL (7-18); Bilirubin, Total 0.6 mg/dL (0.2-1.0); CO2 22.8 mmol/L (21.0-32.0); CREATININE 1.2 mg/dL (0.70-1.30); Calcium 8.4 mg/dL (8.5-10.1); Chloride 106 mmol/L (98-107); Estimated GFR 67.11 (mL/min/1.73m2); Glucose 228 mg/dL (74-106); Magnesium 1.7 mg/dL (1.8-2.4); NT-proBNP 1305 pg/mL (<300); Sodium 139 mmol/L (136-145)
[2022-06-12 19:06] LABS: INR 1.8 (0.9-1.1); PTT Activated 31.5 sec (21.5-31.9); Prothrombin Time 18.7 sec (9.3-11.0)
[2022-06-12 19:07] LABS: Troponin I 85 ng/L (<or=60)
[2022-06-12] MEDS: Normal Saline - Diluent 50 ML VIAL IJ (19:08)
[2022-06-12] MEDS: Omnipaque 350 MG/ML 500 ML BTL-Imaging package IJ (19:09)
--- NOTE | 2022-06-12 19:15 | DI.CT_ITS ---
Exam(s) CT CHEST PE CTA EXAM: CT CHEST PE CTA CLINICAL HISTORY: shortness of breath, leg swelling. TECHNIQUE: Imaging Protocol: Axial CT angiography was performed with multi-slice acquisition and mu lti-planar reconstructions as well as axial, coronal and sagittal MIP reconstructions. CONTRAST MATERIAL: Intravenous: Omnipaque 350 Contrast volume:100 ml COMPARISON: CR CHEST 2 VIEWS PA,LAT from 12/17/2012 CR RIGHT SHOULDER COMPLETE from 06/25/2017 CR XR CHEST 2V PA LATERAL from 06/09/2022 FINDINGS: Pulmonary Arteries: No evidence of filling defect to suggest pulmonary emboli. Tracheobronchial tree: Patent where visualized. Mediastinum and [place]: No dominant adenopathy or fluid collection. Pulmonary parenchyma: Limited evaluation due to expiratory changes and respiratory motion. Mild inte rstitial changes at the lung bases. Findings could represent mild pulmonary edema. Basilar pneumoni tis not excluded. No consolidation or dominant measurable mass. Pleura: Tiny right pleural effusion. No pneumothorax. Heart: The heart is dilated. Aortic valve prosthesis. Mitral annulus heavily calcified. Coronary a rtery calcifications. No pericardial effusion. Aorta: Thoracic aorta non-dilated. No aneurysm. No dissection. Upper abdomen: Liver enlarged with fatty infiltration. Some surrounding ascites visible. Bones: Unremarkable for age. IMPRESSION: No evidence of pulmonary embolism. Cardiomegaly and small right pleural effusion. Increased basilar densities may represent mild pulmon damian edema versus dependent changes.. Infiltrates not excluded. Small amount of ascites is noted on the upper abdomen. RADIATION DOSE DELIVERED: 775.75mGy.cm Total DLP DATA REPOSITORY: All CT scans at this facility are submitted to the National Radiology Data Registry (NRDR) Dose Index Registry (DIR) with the [employer] (ACR). RADIATION OPTIMIZATION: All CT scans at this facility use at least one of these dose optimization te chniques: automated exposure control; mA and/or kV adjustment per patient size (includes targeted exa ms where dose is matched to clinical indication); or iterative reconstruction.
[2022-06-12 19:18] LABS: COVID-19 PCR Negative (Negative)
--- NOTE | 2022-06-12 19:46 | DI.VRAD_ITS ---
PROCEDURE INFORMATION: Exam: CTA Chest With Contrast Exam date and time: 06/12/2022 7:07 PM Age: 66 years old Clinical indication: Shortness of breath; Patient HX: SOB, leg swelling TECHNIQUE: Imaging protocol: Computed tomographic angiography of the chest with contrast. 3D rendering (Not supervised by radiologist): MIP and/or 3D reconstructed images were created by the technologist. Radiation optimization: All CT scans at this facility use at least one of these dose optimization techniques: automated exposure control; mA and/or kV adjustment per patient size (includes targeted exams where dose is matched to clinical indication); or iterative reconstruction. Contrast material: OMNIPAQUE 350; Contrast volume: 100 ml; Contrast route: INTRAVENOUS (IV); COMPARISON: CR XR CHEST 2V PA LATERAL 06/09/2022 1:33 PM FINDINGS: Pulmonary arteries: No pulmonary emboli. Aorta: No aortic aneurysm. Lungs: Mild interstitial thickening at the lung bases. Pleural spaces: No pneumothorax. Minimal pleural fluid bilaterally. Heart: Moderate cardiomegaly. Mitral annular calcifications and prior aortic valvular replacement. No pericardial effusion. Lymph nodes: Prominent hilar and mediastinal lymph nodes. Bones/joints: Unremarkable. No acute fracture. Soft tissues: Unremarkable. Hepatomegaly and question nodular contour to the liver. Mild ascites IMPRESSION: No pulmonary emboli observed Mild interstitial edema and minimal pleural fluid Cirrhosis suspected with surrounding mild ascites Dictated and Authenticated by: Win Osuna MD. Ordering:WIN Freeman MD
[2022-06-12 20:01] LABS: Bilirubin Negative (Negative); Blood Negative (Negative); Clarity Clear (Clear); Glucose 100 mg/dL (Negative); Ketones Negative (Negative); Leukocyte Esterase Negative (Negative); Nitrite Negative (Negative); Urobilinogen 0.2 mg/dL (Up to 0.2); pH 5.5 (5-8)
[2022-06-12 20:02] LABS: Bacteria Negative HPF (Negative); C & S Indicated? No; Casts Negative LPF (Negative); Crystals Negative HPF (Negative); Epithelial Cells Few HPF (Negative); Mucus Negative (Negative); Other Cells Negative (Negative); RBC 0-2 HPF (0-2); WBC 0-2 HPF (0-5)
[2022-06-12] MEDS: Furosemide 40 MG/4 ML VIAL IVP (20:42)
--- NOTE | 2022-06-12 21:17 | W.PM.HP.N ---
Date of service: 06/12/22 Time of Service: 21:17 Assessment and Plan Assessment and plan (1) CHF (congestive heart failure): Status: Chronic Assessment and plan: CHF, new onset (or at least newly diagnosed, sounds like it may have been manifesting previously). Precipitant not clear at present. The valve is not overtly dysfunctional, ischemic cardiomyopathy to be considered, and possibly acute event given troponin. Will plan on continuing Lasix, trend troponins and check ECHO in AM. Reviewed ADs, requests Full Code. DM: will track with basal/bolus insulin HTN: maintain beta lula and SIMBA for now, adjust as indicated History of Present Illness History of Present Illness Chief Complaint: leg swelling, SOB Narrative: 66 male diabetic with h/o AVR (for ?) and reported h/o reduced EF on ECHO 2021. Repoerts on and off SOB and leg swelling for quite some time, but today the leg swelling has been worse and more persistent. No CP. Has baseline 5-6 pillow orthopnea for decades, states it is no different that usual. Here in ER patient noted to be breathless with any exertion with initial o2 sat 91%. EKG shows baseline LBBB, CTA negative for PE, shows mild pulmonary edema and cardiomegaly and BNP is 1305. Troponin 85 (number 2 pending at this time). Patient given 40 Lasix IV and has put out nearly 1 L at this time. I was asked to evaluate for admission. Review of Systems Narrative: per HPI PFSH All Active Problems (Updated 06/12/22 @ 21:25 by Salvador Sales MD) CHF (congestive heart failure) (Chronic) Hand laceration (Acute) Multiple lacerations (Acute) Dizziness (Acute) Acute exacerbation of CHF (congestive heart failure) (Acute) Medical History Aortic stenosis Bilateral shoulder pain Cervicalgia Daytime somnolence Diabetes mellitus Elbow pain, right Endocarditis Fatty liver History of anticoagulant therapy Hx of sepsis Hyperlipidemia Hypothyroid Lupus transient, from Remicaide Murmur Paresthesia of both hands Psoriasis Radial nerve dysfunction Renal insufficiency Sleepiness Surgical History H/O aortic valve replacement Social History Smoking/Tobacco Use Status: Former Tobacco Use Smoking risk assessment performed?: Yes Alcohol Intake: never Drug use: Never Substance use type: does not use Household members: spouse Housing: house Number of Children: 2 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 What type of physical activity do you participate in: walking and independent ambulation Do you feel safe at home: Yes Do you feel safe in your relationship?: Yes Meds Allergies and Home Medications Allergies Allergy/AdvReac Type Severity Reaction Status Date / Time lisinopril Allergy Severe Unverified 12/01/21 09:59 Penicillins Allergy Severe Swelling/Ed Unverified 12/01/21 09:59 omar cyclosporine Allergy Mild Unverified 12/01/21 09:59 infliximab [From Remicade] AdvReac Severe Gave him Unverified 12/01/21 09:59 Lopus adalimumab [From Humira] AdvReac Intermediate Skin Rash Unverified 12/01/21 09:59 clindamycin AdvReac Intermediate Skin Rash Unverified 12/01/21 09:59 ustekinumab [From Stelara] AdvReac Intermediate Skin Rash Unverified 12/01/21 09:59 Home Medications Medication Instructions Recorded Confirmed Type aspirin 81 mg chewable tablet 81 mg PO DAILY 11/11/13 09/23/20 History (Aspirin Low-Strength) levothyroxine 200 mcg tablet 225 mcg PO DAILY 11/11/13 06/12/22 History (Synthroid) metformin 1,000 mg tablet 500 mg PO BID 11/11/13 06/12/22 History (Glucophage) metoprolol tartrate 25 mg tablet 25 mg PO BID 11/11/13 06/12/22 History warfarin 10 mg tablet (Coumadin) 10 mg PO DAILY 11/11/13 06/12/22 History insulin aspart U-100 100 unit/mL units SQ PRN PRN 04/29/17 05/28/19 History subcutaneous cartridge (Novolog PenFill U-100 Insulin aspart) insulin detemir U-100 100 unit/mL 40 unit SQ BID 04/29/17 06/12/22 History (3 mL) subcutaneous pen (Levemir FlexTouch U-100 Insulin) secukinumab 150 mg/mL subcutaneous 300 mg IM PER PROTOCOL 04/29/17 05/28/19 History syringe (Cosentyx) atorvastatin 20 mg tablet 20 mg PO HS 05/19/19 06/12/22 History insulin lispro 100 unit/mL 10 unit subcut DIRECTED 05/19/19 06/12/22 History subcutaneous pen (Humalog KwikPen (U-100) Insulin) ixekizumab 80 mg/mL subcutaneous 80 mg subcut DIRECTED 05/19/19 06/12/22 History auto-injector (Taltz Autoinjector) lidocaine 5 % topical ointment 1 applic topical QID PRN 05/19/19 06/12/22 History losartan 50 mg tablet 50 mg PO DAILY 05/19/19 06/12/22 History warfarin 5 mg tablet 5 mg PO DIRECTED 05/19/19 06/12/22 History meclizine 25 mg tablet 25 mg PO BID PRN dizziness #14 tabs 06/09/22 06/12/22 Rx Exam Narrative Exam Narrative: 179,90, 90, 36.6, 22, 91% RA (initial, during visit 92-93). HEENT atraumatic; neck supple, JVP difficult to read, caortid upstrike brisk; lungs diminished, no rales noted; heart RRR with mechanical S2, no murmur noted; abdomen soft and NT; extremities 2+ pedal edema to upper leg; neuro Ox3, lucid, moves all 4s Results Labs 06/12/22 18:25 06/12/22 18:25 Labs: Laboratory Results - last 24 hr 06/12/22 06/12/22 06/12/22 18:25 18:25 18:25 WBC 4.34 L RBC 5.18 Hgb 14.6 Hct 46.2 MCV 89 MCH 28.2 MCHC 31.6 L RDW 14.3 H Plt Count 99 L MPV 10.2 Immature Gran % 0.2 Neutrophils % 56.0 Lymphocytes % 32.3 Monocytes % 8.3 Eosinophils % 2.3 Basophils % 0.9 Nucleated RBC % 0.0 Absolute Neutrophils 2.43 Absolute Lymphocytes 1.40 Absolute Monocytes 0.36 Absolute Eosinophils 0.10 Absolute Basophils 0.04 PT INR APTT Sodium 139 Potassium 4.0 Chloride 106 Carbon Dioxide 22.8 Anion Gap 10.2 BUN 19 H Creatinine 1.2 Est GFR (CKD-EPI 2020) 67.11 Glucose 228 H Calcium 8.4 L Magnesium 1.7 L Total Bilirubin 0.6 AST 23 ALT 27 Alkaline Phosphatase 86 Troponin I 85 H* NT-Pro-B Natriuret Pep 1305 H Total Protein 7.0 Albumin 3.4 Procalcitonin > 0.1 Urine Color Urine Clarity Urine pH Ur Specific [place] Urine Protein Urine Ketones Urine Blood Urine Nitrite Urine Bilirubin Urine Urobilinogen Ur Leukocyte Esterase Urine RBC Urine WBC Ur Epithelial Cells Urine Crystals Urine Bacteria Urine Casts Urine Mucus Urine Other Ur Culture Indicated? Urine Glucose COVID-19 Source SARS-CoV-2 (PCR) 06/12/22 06/12/22 06/12/22 18:25 18:28 19:51 WBC RBC Hgb Hct MCV MCH MCHC RDW Plt Count MPV Immature Gran % Neutrophils % Lymphocytes % Monocytes % Eosinophils % Basophils % Nucleated RBC % Absolute Neutrophils Absolute Lymphocytes Absolute Monocytes Absolute Eosinophils Absolute Basophils PT 18.7 H INR 1.8 H APTT 31.5 Sodium Potassium Chloride Carbon Dioxide Anion Gap BUN Creatinine Est GFR (CKD-EPI 2020) Glucose Calcium Magnesium Total Bilirubin AST ALT Alkaline Phosphatase Troponin I NT-Pro-B Natriuret Pep Total Protein Albumin Procalcitonin Urine Color Yellow Urine Clarity Clear Urine pH 5.5 Ur Specific [place] 1.020 Urine Protein 30 H Urine Ketones Negative Urine Blood Negative Urine Nitrite Negative Urine Bilirubin Negative Urine Urobilinogen 0.2 Ur Leukocyte Esterase Negative Urine RBC 0-2 Urine WBC 0-2 Ur Epithelial Cells Few Urine Crystals Negative Urine Bacteria Negative Urine Casts Negative Urine Mucus Negative Urine Other Negative Ur Culture Indicated? No Urine Glucose 100 H COVID-19 Source Nasal/Nares SARS-CoV-2 (PCR) Negative Last Vital Signs Temp 36.6 C 06/12/22 18:07 Pulse 95 H 06/12/22 18:07 Resp 22 06/12/22 18:29 BP 179/90 H 06/12/22 18:07 Pulse Ox 91 L 06/12/22 18:07 Time Spent Time spent with Patient: 40-54 minutes Time was spent: preparing to see the patient(eg.review tests), obtaining and/or reviewing separately otained hiistory, ordering medications,tests, procedures and indepentently interpreting results
[2022-06-12 21:18] LABS: Diff Comment PLT Morph Reviewed
[2022-06-12 21:19] LABS: RBC Morphology Normal
[2022-06-12 21:39] LABS: Troponin I 100 ng/L (<or=60)
[2022-06-12 21:42] LABS: TSH (W/Ref FT4) 7.12 uIU/mL (0.36-3.74)
[2022-06-12 22:06] LABS: FREE T4 1.39 ng/dL (0.76-1.46)
--- NOTE | 2022-06-12 23:07 | NUR.NOTE ---
Nursing Note: Pt transported upstairs to ICU with RN and monitoring. Report given to AMOR Heath.
[2022-06-12] MEDS: Atorvastatin 20 MG TAB PO (23:46)
[2022-06-12] MEDS: Insulin Aspart 300 UNITS/3 ML PEN SC (23:52)
[2022-06-13] VITALS (40 sets, daily range): BP systolic 114–146; BP diastolic 41–86; PULSE 69–93; RESP 11–36; TEMP 36.4–37.4; O2SAT 85–98
--- NOTE | 2022-06-13 | DI.US_ITS ---
APPROVED REPORT EXAM: Comprehensive 2D, Doppler, and color-flow Echocardiogram Patient Location: In-Patient Room/Bed: [id number] Release And Technical Records Clerk: Vi Lozano RDCS (AE) Indications: New onset CHF,Mechanical AVR, SOB Other Information Study Quality: Fair. Technically limited study due to body habitus, inability to position patient exa m done bedside icu. Conclusion Technically difficult and suboptimal study Left ventricle is mildly dilated. Estimated ejection fraction is 30%. There is paradoxic septal mot ion consistent with the patient's known LBBB and suspected right ventricular volume overload. The re mainder of the left ventricle is diffusely hypocontractile Right ventricle appears dilated. Right ventricular systolic function may be mildly reduced Both atria are moderately enlarged There is a mechanical aortic valve prosthesis. Mean gradient is 6 mmHg. There is no aortic regurgit ation Mitral annular calcification. Mild mitral regurgitation Normal tricuspid valve with moderate regurgitation. Estimated right ventricular systolic pressure is 42 mmHg Mildly dilated ascending aorta 3.52 cm Wall motion Left Ventricle The left ventricle is mildly dilated Left ventricular systolic function is reduced There is normal le ft ventricular wall thickness. Paradoxic septal motion consistent with LBBB and RV volume overload Ot herwise diffuse hypokinesis There is no ventricular septal defect visualized. LVEF is 30%. Right Ventricle Right ventricle appears moderately enlarged Right ventricular systolic function may be mildly reduced The RVSP is 41.8 mmHg. Atria Left atrium is moderately dilated Right atrium is moderately dilated The interatrial septum is intact with no evidence for an atrial septal defect. Aortic Valve No aortic regurgitation is present. Mechanical aortic valve is present. Mitral Valve Severe mitral annular calcification. The mitral valve is mildly thickened. No evidence of mitral valv e stenosis. Mild mitral regurgitation. Tricuspid Valve The tricuspid valve is normal in structure. There is no tricuspid valve stenosis. Moderate tricuspid regurgitation. Pulmonic Valve The pulmonary valve is normal in structure. There is no pulmonic valvular stenosis. Trace to mild pul vira regurgitation. Great Vessels The aortic root is normal in size. The ascending aorta is mildly dilated. Aortic arch is not well vis ualized. The IVC collapses <50% with inspiration. Pericardium There is no pericardial effusion. 2D Dimensions IVSD d PLAX 1.14 cm M: 0.6-1.2 LV Vol A2C d MOD 151.7 mL LVPW d PLAX 1.13 cm M: 0.6 - 1.2 LV Vol A4C d MOD 147.1 mL LVID d PLAX 5.73 cm M: 4.2 - 5.8 LA Area A4C s MOD 20.23 cm2 LVDs 5.15 cm M: 2.5 - 4.0 LA Area A2C s MOD 28.99 cm2 Ao Root d 2.88 cm M: 3.1 - 3.7 LV EF A4C MOD 25.6 % RA Area A4C 17.68 cm2 LV EF A2C MOD 25.2 % Ao Asc Diam d 3.52 cm M: 2.6 - 3.4 LV EF Biplane MOD 26.5 % LV EF Teichholz 21.6 % SV 41.10 mL LVEF (Feliciano's) 26.46 % M: 52 - 72 LV Volume 155.32 mL M: 62 - 150 LV Volume Index 65.81 mL/m2 M: 34 - 74 LV Vol Biplane MOD 155.3 mL FS 10.00 % LV Diastology MV E' lateral 0.066 (>0.1 m/s) E/A Ratio 2.4 LV E/e LAT 22.30 (<14) MV E Vmax 1.46 (0.4-1.3 m/s) MV E/E' lateral 22.31 MV A Vmax 0.60 (0.4-1.3 m/s) MV E/A Ratio 2.27 Aortic Valve LVOT Area 2.60 cm2 AoV Area Vmax 0.99 cm2 LVOT Vmax 0.60 m/s JAXON Mean Jayesh. 1.05 cm2 LVOT Mean Jyaesh. 0.46 m/s LVOT Peak Grad 1.4 mmHg LVOT Mean Grad 0.9 mmHg LVOT VTI 0.108 m LVOT Diam s 1.80 cm AoV Vmax 1.56 m/s Velocity Ratio 0.38 AoV Mean Jayesh. 1.15 m/s AoV Peak Grad 9.8 mmHg LVOT SV 27.93 mL AoV Mean Grad 6.1 mmHg AoV VTI 0.308 m AoV Area VTI 0.91 cm2 Mitral Valve MV DT 214 (160-240 msec) MV PHT 62 msec MV Area PHT 3.54 cm2 MV VTI 0.381 m MV VTI Annulus 0.391 m MV Area VTI 0.75 (4.0-6.0 cm2) Pulmonary Valve PV Vmax 0.91 (0.5-1.5 m/s) RVOT Peak Gr. 1.26 mmHg PV Peak Grad 3.3 mmHg RVOT Mean Gr. 0.60 mmHg PV Mean Grad 2.0 mmHg RVOT VTI 0.081 m PV VTI 0.164 m RVOT Vmax 0.56 m/s Tricuspid Valve TR Peak Grad 33.8 mmHg TR Vmax 2.91 m/s RA Pressure 8.00 mmHg RVSP (TR) 41.8 mmHg
[2022-06-13] MEDS: Levothyroxine 50 MCG TAB 25 MCG PO (05:51)
[2022-06-13] MEDS: Levothyroxine 100 MCG TAB 200 MCG PO (05:51)
[2022-06-13 06:35] LABS: INR 1.8 (0.9-1.1); Prothrombin Time 18.7 sec (9.3-11.0)
[2022-06-13 06:37] LABS: Troponin I 79 ng/L (<or=60)
--- NOTE | 2022-06-13 07:15 | RT.EKG_ITS ---
APPROVED REPORT Exam: Resting ECG Reason for Exam: elevated troponin Patient Location: I HR:82 bpm ECG Measurements Heart Rate 82 AXIS CO 186 P 68 QRSd 181 QRS -35 QT 439 T 129 QTc 513 Conclusion Sinus rhythm...normal P axis, V-rate 50- 99 Left bundle branch block...QRSd>120, broad/notched R
[2022-06-13 07:27] LABS: Procalcitonin < 0.1 ng/mL
[2022-06-13 07:35] LABS: Lab Add On Test DONE
[2022-06-13 07:48] LABS: Anion Gap 11.6 mmol/L (3-11); BUN 16 mg/dL (7-18); CO2 24.4 mmol/L (21.0-32.0); CREATININE 1.1 mg/dL (0.70-1.30); Calcium 8.5 mg/dL (8.5-10.1); Chloride 104 mmol/L (98-107); Glucose 234 mg/dL (74-106); Magnesium 1.7 mg/dL (1.8-2.4); Potassium 3.7 mmol/L (3.5-5.1); Sodium 140 mmol/L (136-145)
[2022-06-13] MEDS: Furosemide 40 MG/4 ML VIAL IVP ×2 (08:43→16:27)
[2022-06-13] MEDS: Losartan 50 MG TAB PO (08:44)
[2022-06-13] MEDS: MAGNESIUM SULFATE 2 GM/50 ML BAG IVPB (08:44)
--- NOTE | 2022-06-13 09:02 | PDOC.CMIN ---
- If Service Date Differs Date of service: 06/13/22 Time of Service: 09:04 Care Management Initial Assess REASON FOR HOSPITALIZATION:: CHF PAST MEDICAL HISTORY/PAST SURGICAL HISTORY:: All Active Problems. CHF (congestive heart failure) (Chronic). Hand laceration (Acute). Multiple lacerations (Acute). Dizziness (Acute). Acute exacerbation of CHF (congestive heart failure) (Acute). Medical History. Aortic stenosis. Bilateral shoulder pain. Cervicalgia. Daytime somnolence. Diabetes mellitus. Elbow pain, right. Endocarditis. Fatty liver. History of anticoagulant therapy. Hx of sepsis. Hyperlipidemia. Hypothyroid. Lupus. transient, from Remicaide. Murmur. Paresthesia of both hands. Psoriasis. Radial nerve dysfunction. Renal insufficiency. Sleepiness. Surgical History. H/O aortic valve replacement PREVIOUS FUNCTIONAL STATUS/SOCIAL/FAMILY SUPPORTS:: Camden Zayas lives in [place] with his , Nakia. They have a daughter, Cristin, and a son, Cristi. 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 He is independent at baseline. CURRENT FUNCTIONAL STATUS:: Marquez was sitting up in bed when CM met with him. His , Nakia, was in the room visiting. He stated that he feels much better than when he arrived. He reported that he saw the hospitalist as well as the reheat furnace operator, and is hoping to return home tomorrow. He stated that he has travel plans early morning, and is hoping to be discharged tomorrow. CM brought this to MD's attention, as Marquez and his both confirmed that it is important to them to be able to go. CM informed MD, and encouraged Marquez to discuss it with MD, although he may not be safe for discharge tomorrow. CM will continue to follow. ADVANCE DIRECTIVES:: Not on file at [facility]. Has patient been provided with info about the portal/API?: Yes Did the patient sign up for the portal?: No CODE STATUS:: Full Code INSURANCE COVERAGE / FINANCIAL ISSUES:: BC/BS CURRENT HOME/COMMUNITY SERVICES/EQUIPMENT:: None. PRIMARY CARE PHYSICIAN:: Yohana Prado POTENTIAL DISCHARGE NEEDS:: Evaluations for further needs, follow up appointments. PATIENT/FAMILY EDUCATION NEEDS:: Review discharge instructions and limitations, discussion of self care needs including ask me three. ANTICIPATED BARRIERS TO DISCHARGE:: None identified. TRANSPORTATION:: Via private vehicle by his . PLAN:: Anticipate Camden will return home when medically cleared. His will drive him home via private vehicle when ready. He will follow up with his PCP and discharge plan of care. CM will continue to follow.
[2022-06-13] MEDS: Normal Saline Flush 10 ML SYR IVP ×4 (09:04→17:17)
[2022-06-13] MEDS: Insulin Aspart 300 UNITS/3 ML PEN SC ×4 (09:16→22:11)
[2022-06-13] MEDS: Aspirin 81 MG CHEW PO (09:17)
--- NOTE | 2022-06-13 10:37 | CCONE_ITS ---
Date of service: 06/13/22 Time of Service: 10:38 Assessment and Plan Assessment and plan (1) CHF (congestive heart failure): Status: Chronic Assessment and plan: Patient has progressive decompensated heart failure. His echo shows both left ventricular and right ventricular dysfunction. EF is 30%. He needs guideline directed therapy to address CHF first. Diuretic should be used to correct his volume status. For now would hold beta-lula. Cozaar could be changed to Entresto if the latter is affordable. Spironolactone would be reasonable. He eventually should be considered for an ICD and also cardiac resynchronization therapy. That is not an acute recommendation but could be implemented after he sees his computational theory scientist postdischarge. This will address his sick sinus syndrome as well. Reevaluation for sleep apnea would be appropriate. The minimal troponin elevation is likely related to congestive heart failure, not ACS. He may require an ischemic evaluation, but not urgently. (2) H/O aortic valve replacement: Assessment and plan: Status post mechanical AVR, appropriate valve function History of Present Illness History of Present Illness Chief Complaint: Edema and shortness of breath Narrative: This is a 66-year-old man who presented to the hospital because of congestive heart failure. He has a history of a mechanical aortic valve replacement done in 2012 at [facility] for aortic stenosis. He did not have coronary artery disease at the time of his surgery. He has been followed subsequently at [facility], last visit was July 2021 at which time he reportedly had an echocardiogram. The patient says he was told the echocardiogram was stable; the report is not available. He reports that for several weeks he has had worsening leg swelling and also some degree of shortness of breath. He came to the ER because of edema. Exam, chest x-ray and laboratory studies have all been consistent with congestive heart failure and he has been treated with intravenous furosemide with good urine output. He feels better He has a chronic left bundle branch block. In the past at [facility] he had some pauses with beta-blockers and they were reduced or held. He was felt to have sick sinus syndrome. He has had a 3-second pause here and his metoprolol tartrate has been discontinued Troponins have been borderline/minimally elevated An echocardiogram was just done. This shows biventricular failure. LVEF is 30% with paradoxic septal motion related to his LBBB and also RV volume overload. The right ventricle is dilated, possibly hypocontractile. The mechanical aortic valve replacement is functioning appropriately. He has mitral and tricuspid regurgitation. Estimated right ventricular systolic pressure is moderately elevated. He has a history of Staphylococcus aureus bacteremia in 2019 which was treated with intensive antibiotics Records have indicated a diagnosis of sleep apnea, never treated Review of Systems Cardiovascular Cardiovascular: Reports as per HPI, Reports leg edema and Reports dyspnea Respiratory Respiratory: Reports dyspnea PFSH All Active Problems (Updated 06/12/22 @ 21:25 by Salvador Sales MD) CHF (congestive heart failure) (Chronic) Hand laceration (Acute) Multiple lacerations (Acute) Dizziness (Acute) Acute exacerbation of CHF (congestive heart failure) (Acute) Medical History Aortic stenosis Bilateral shoulder pain Cervicalgia Daytime somnolence Diabetes mellitus Elbow pain, right Endocarditis Fatty liver History of anticoagulant therapy Hx of sepsis Hyperlipidemia Hypothyroid Lupus transient, from Remicaide Murmur Paresthesia of both hands Psoriasis Radial nerve dysfunction Renal insufficiency Sleepiness Surgical History H/O aortic valve replacement Social History Smoking/Tobacco Use Status: Former Tobacco Use Smoking risk assessment performed?: Yes Alcohol Intake: never Drug use: Never Substance use type: does not use Household members: spouse Housing: house Number of Children: 2 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 Systolic ejection quality murmur Extrem Other: 3-4+ firm edema Results Last Vital Signs Temp 37.4 C 06/13/22 06:00 Pulse 69 06/13/22 08:01 Resp 21 06/13/22 08:01 BP 146/65 H 06/13/22 08:01 Pulse Ox 95 06/13/22 08:01 Labs 06/12/22 18:25 06/13/22 05:55 Labs: Laboratory Results - last 24 hr 06/12/22 06/12/22 06/12/22 18:25 18:25 18:25 WBC 4.34 L RBC 5.18 Hgb 14.6 Hct 46.2 MCV 89 MCH 28.2 MCHC 31.6 L RDW 14.3 H Plt Count 99 L MPV 10.2 Immature Gran % 0.2 Neutrophils % 56.0 Lymphocytes % 32.3 Monocytes % 8.3 Eosinophils % 2.3 Basophils % 0.9 Nucleated RBC % 0.0 Absolute Neutrophils 2.43 Absolute Lymphocytes 1.40 Absolute Monocytes 0.36 Absolute Eosinophils 0.10 Absolute Basophils 0.04 RBC Morphology Normal PT INR APTT Sodium 139 Potassium 4.0 Chloride 106 Carbon Dioxide 22.8 Anion Gap 10.2 BUN 19 H Creatinine 1.2 Est GFR (CKD-EPI 2020) 67.11 Glucose 228 H Calcium 8.4 L Magnesium 1.7 L Total Bilirubin 0.6 AST 23 ALT 27 Alkaline Phosphatase 86 Troponin I 85 H* NT-Pro-B Natriuret Pep 1305 H Total Protein 7.0 Albumin 3.4 Procalcitonin < 0.1 TSH Free T4 Urine Color Urine Clarity Urine pH Ur Specific Spur Urine Protein Urine Ketones Urine Blood Urine Nitrite Urine Bilirubin Urine Urobilinogen Ur Leukocyte Esterase Urine RBC Urine WBC Ur Epithelial Cells Urine Crystals Urine Bacteria Urine Casts Urine Mucus Urine Other Ur Culture Indicated? Urine Glucose COVID-19 Source SARS-CoV-2 (PCR) Add-On Test Request 06/12/22 06/12/22 06/12/22 18:25 18:28 19:51 WBC RBC Hgb Hct MCV MCH MCHC RDW Plt Count MPV Immature Gran % Neutrophils % Lymphocytes % Monocytes % Eosinophils % Basophils % Nucleated RBC % Absolute Neutrophils Absolute Lymphocytes Absolute Monocytes Absolute Eosinophils Absolute Basophils RBC Morphology PT 18.7 H INR 1.8 H APTT 31.5 Sodium Potassium Chloride Carbon Dioxide Anion Gap BUN Creatinine Est GFR (CKD-EPI 2020) Glucose Calcium Magnesium Total Bilirubin AST ALT Alkaline Phosphatase Troponin I NT-Pro-B Natriuret Pep Total Protein Albumin Procalcitonin TSH Free T4 Urine Color Yellow Urine Clarity Clear Urine pH 5.5 Ur Specific Spur 1.020 Urine Protein 30 H Urine Ketones Negative Urine Blood Negative Urine Nitrite Negative Urine Bilirubin Negative Urine Urobilinogen 0.2 Ur Leukocyte Esterase Negative Urine RBC 0-2 Urine WBC 0-2 Ur Epithelial Cells Few Urine Crystals Negative Urine Bacteria Negative Urine Casts Negative Urine Mucus Negative Urine Other Negative Ur Culture Indicated? No Urine Glucose 100 H COVID-19 Source Nasal/Nares SARS-CoV-2 (PCR) Negative Add-On Test Request 06/12/22 06/12/22 06/13/22 21:11 21:11 05:55 WBC RBC Hgb Hct MCV MCH MCHC RDW Plt Count MPV Immature Gran % Neutrophils % Lymphocytes % Monocytes % Eosinophils % Basophils % Nucleated RBC % Absolute Neutrophils Absolute Lymphocytes Absolute Monocytes Absolute Eosinophils Absolute Basophils RBC Morphology PT 18.7 H INR 1.8 H APTT Sodium Potassium Chloride Carbon Dioxide Anion Gap BUN Creatinine Est GFR (CKD-EPI 2020) Glucose Calcium Magnesium Total Bilirubin AST ALT Alkaline Phosphatase Troponin I 100 H* NT-Pro-B Natriuret Pep Total Protein Albumin Procalcitonin TSH 7.12 H Free T4 1.39 Urine Color Urine Clarity Urine pH Ur Specific Spur Urine Protein Urine Ketones Urine Blood Urine Nitrite Urine Bilirubin Urine Urobilinogen Ur Leukocyte Esterase Urine RBC Urine WBC Ur Epithelial Cells Urine Crystals Urine Bacteria Urine Casts Urine Mucus Urine Other Ur Culture Indicated? Urine Glucose COVID-19 Source SARS-CoV-2 (PCR) Add-On Test Request 06/13/22 06/13/22 06/13/22 05:55 05:55 05:55 WBC RBC Hgb Hct MCV MCH MCHC RDW Plt Count MPV Immature Gran % Neutrophils % Lymphocytes % Monocytes % Eosinophils % Basophils % Nucleated RBC % Absolute Neutrophils Absolute Lymphocytes Absolute Monocytes Absolute Eosinophils Absolute Basophils RBC Morphology PT Cancelled INR Cancelled APTT Sodium Potassium Chloride Carbon Dioxide Anion Gap BUN Creatinine Est GFR (CKD-EPI 2020) Glucose Calcium Magnesium Total Bilirubin AST ALT Alkaline Phosphatase Troponin I 79 H* NT-Pro-B Natriuret Pep Total Protein Albumin Procalcitonin TSH Free T4 Urine Color Urine Clarity Urine pH Ur Specific Spur Urine Protein Urine Ketones Urine Blood Urine Nitrite Urine Bilirubin Urine Urobilinogen Ur Leukocyte Esterase Urine RBC Urine WBC Ur Epithelial Cells Urine Crystals Urine Bacteria Urine Casts Urine Mucus Urine Other Ur Culture Indicated? Urine Glucose COVID-19 Source SARS-CoV-2 (PCR) Add-On Test Request DONE 06/13/22 05:55 WBC RBC Hgb Hct MCV MCH MCHC RDW Plt Count MPV Immature Gran % Neutrophils % Lymphocytes % Monocytes % Eosinophils % Basophils % Nucleated RBC % Absolute Neutrophils Absolute Lymphocytes Absolute Monocytes Absolute Eosinophils Absolute Basophils RBC Morphology PT INR APTT Sodium 140 Potassium 3.7 Chloride 104 Carbon Dioxide 24.4 Anion Gap 11.6 H BUN 16 Creatinine 1.1 Est GFR (CKD-EPI 2020) 74.50 Glucose 234 H Calcium 8.5 Magnesium 1.7 L Total Bilirubin AST ALT Alkaline Phosphatase Troponin I NT-Pro-B Natriuret Pep Total Protein Albumin Procalcitonin TSH Free T4 Urine Color Urine Clarity Urine pH Ur Specific Spur Urine Protein Urine Ketones Urine Blood Urine Nitrite Urine Bilirubin Urine Urobilinogen Ur Leukocyte Esterase Urine RBC Urine WBC Ur Epithelial Cells Urine Crystals Urine Bacteria Urine Casts Urine Mucus Urine Other Ur Culture Indicated? Urine Glucose COVID-19 Source SARS-CoV-2 (PCR) Add-On Test Request
--- NOTE | 2022-06-13 10:41 | PGE_ITS ---
Date of Service Date of service: 06/13/22 Time of Service: 08:30 Assessment and Plan Assessment and plan (1) Biventricular heart failure with reduced left ventricular function: Status: Acute Assessment and plan: LVEF of 30% by echo today. Evaluated by cardiology, who recommend guideline directed therapy. The patient's beta lula was held due to sinus pauses which were significant. The patient has a reaction to lisinopril (cough), and I have discussed this with the pharmacist: entresto is likely produce the same result. I will speak to the patient and to see if they would like to give it a try anyway. Will add spironolactone. Needs outpatient follow up for AICD/cardiac resynchronronizatoin therapy with [facility]. Appreciate cardiology help. (2) Sinus pause: Status: Acute Assessment and plan: Hold beta blockers. Continue cardiac monitoring. (3) Elevated troponin: Status: Acute Assessment and plan: In setting of acute CHF, does not represent ACS. Could have outpatient ischemic workup. No role for ASA at this time, per cardiology. (4) Pulmonary hypertension: Status: Acute Assessment and plan: Diurese. As above. Needs to have follow up for his JULIANE. (5) Obstructive sleep apnea: Status: Chronic Assessment and plan: per cardiology, the patient has this diagnosis but had not been receiving positive pressure therapy. We will investigate when his last sleep study was. (6) H/O aortic valve replacement: Assessment and plan: Continue anticoagulation. Target INR 2.0-3.0. (7) Subtherapeutic international normalized ratio (INR): Status: Acute Assessment and plan: Bridge with lovenox (8) Hypomagnesemia: Status: Acute Assessment and plan: Replete, recheck in am (9) Discharge planning issues: Status: Acute Assessment and plan: Full code Keep in ICU until resolution of pauses. Discussed with Dr Vizcaino. Subjective Subjective Interval history since last seen: Mr Juárez states that he is feeling better today. His breathing is better. His legs are not as swollen. Denies dizziness, chest pain, nausea. He denies h/o JULIANE, but per cardiology he does have a previous diagnosis of it. He is not on CPAP at home. Per nursing, had a 3.84 and 3.79 second pauses while awake, asymptoamtic. BB held. Exam Narrative Exam Narrative: General: Pleasant middle-aged male who is A&Ox3, appears comfortable w/o dyspnea/tachypnea at a 30 degree angle in bed HEENT: EOMI, MMM Heart: RRR, + SOREN of a mechanical aortic valve Lungs: CTAB anteriorly (echo was being done during my exam) Abdomen: soft, obese, nontender Extremities: 3+ pitting edema BLEs, symmetric Objective Last Vital Signs Temp 37.4 C 06/13/22 06:00 Pulse 69 06/13/22 08:01 Resp 21 06/13/22 08:01 BP 146/65 H 06/13/22 08:01 Pulse Ox 95 06/13/22 08:01 Laboratory Results - last 24 hr 06/12/22 06/12/22 06/12/22 18:25 18:25 18:25 WBC 4.34 L RBC 5.18 Hgb 14.6 Hct 46.2 MCV 89 MCH 28.2 MCHC 31.6 L RDW 14.3 H Plt Count 99 L MPV 10.2 Immature Gran % 0.2 Neutrophils % 56.0 Lymphocytes % 32.3 Monocytes % 8.3 Eosinophils % 2.3 Basophils % 0.9 Nucleated RBC % 0.0 Absolute Neutrophils 2.43 Absolute Lymphocytes 1.40 Absolute Monocytes 0.36 Absolute Eosinophils 0.10 Absolute Basophils 0.04 RBC Morphology Normal PT INR APTT Sodium 139 Potassium 4.0 Chloride 106 Carbon Dioxide 22.8 Anion Gap 10.2 BUN 19 H Creatinine 1.2 Est GFR (CKD-EPI 2020) 67.11 Glucose 228 H Calcium 8.4 L Magnesium 1.7 L Total Bilirubin 0.6 AST 23 ALT 27 Alkaline Phosphatase 86 Troponin I 85 H* NT-Pro-B Natriuret Pep 1305 H Total Protein 7.0 Albumin 3.4 Procalcitonin < 0.1 TSH Free T4 Urine Color Urine Clarity Urine pH Ur Specific [place] Urine Protein Urine Ketones Urine Blood Urine Nitrite Urine Bilirubin Urine Urobilinogen Ur Leukocyte Esterase Urine RBC Urine WBC Ur Epithelial Cells Urine Crystals Urine Bacteria Urine Casts Urine Mucus Urine Other Ur Culture Indicated? Urine Glucose COVID-19 Source SARS-CoV-2 (PCR) Add-On Test Request 06/12/22 06/12/22 06/12/22 18:25 18:28 19:51 WBC RBC Hgb Hct MCV MCH MCHC RDW Plt Count MPV Immature Gran % Neutrophils % Lymphocytes % Monocytes % Eosinophils % Basophils % Nucleated RBC % Absolute Neutrophils Absolute Lymphocytes Absolute Monocytes Absolute Eosinophils Absolute Basophils RBC Morphology PT 18.7 H INR 1.8 H APTT 31.5 Sodium Potassium Chloride Carbon Dioxide Anion Gap BUN Creatinine Est GFR (CKD-EPI 2020) Glucose Calcium Magnesium Total Bilirubin AST ALT Alkaline Phosphatase Troponin I NT-Pro-B Natriuret Pep Total Protein Albumin Procalcitonin TSH Free T4 Urine Color Yellow Urine Clarity Clear Urine pH 5.5 Ur Specific [place] 1.020 Urine Protein 30 H Urine Ketones Negative Urine Blood Negative Urine Nitrite Negative Urine Bilirubin Negative Urine Urobilinogen 0.2 Ur Leukocyte Esterase Negative Urine RBC 0-2 Urine WBC 0-2 Ur Epithelial Cells Few Urine Crystals Negative Urine Bacteria Negative Urine Casts Negative Urine Mucus Negative Urine Other Negative Ur Culture Indicated? No Urine Glucose 100 H COVID-19 Source Nasal/Nares SARS-CoV-2 (PCR) Negative Add-On Test Request 06/12/22 06/12/22 06/13/22 21:11 21:11 05:55 WBC RBC Hgb Hct MCV MCH MCHC RDW Plt Count MPV Immature Gran % Neutrophils % Lymphocytes % Monocytes % Eosinophils % Basophils % Nucleated RBC % Absolute Neutrophils Absolute Lymphocytes Absolute Monocytes Absolute Eosinophils Absolute Basophils RBC Morphology PT 18.7 H INR 1.8 H APTT Sodium Potassium Chloride Carbon Dioxide Anion Gap BUN Creatinine Est GFR (CKD-EPI 2020) Glucose Calcium Magnesium Total Bilirubin AST ALT Alkaline Phosphatase Troponin I 100 H* NT-Pro-B Natriuret Pep Total Protein Albumin Procalcitonin TSH 7.12 H Free T4 1.39 Urine Color Urine Clarity Urine pH Ur Specific [place] Urine Protein Urine Ketones Urine Blood Urine Nitrite Urine Bilirubin Urine Urobilinogen Ur Leukocyte Esterase Urine RBC Urine WBC Ur Epithelial Cells Urine Crystals Urine Bacteria Urine Casts Urine Mucus Urine Other Ur Culture Indicated? Urine Glucose COVID-19 Source SARS-CoV-2 (PCR) Add-On Test Request 06/13/22 06/13/22 06/13/22 05:55 05:55 05:55 WBC RBC Hgb Hct MCV MCH MCHC RDW Plt Count MPV Immature Gran % Neutrophils % Lymphocytes % Monocytes % Eosinophils % Basophils % Nucleated RBC % Absolute Neutrophils Absolute Lymphocytes Absolute Monocytes Absolute Eosinophils Absolute Basophils RBC Morphology PT Cancelled INR Cancelled APTT Sodium Potassium Chloride Carbon Dioxide Anion Gap BUN Creatinine Est GFR (CKD-EPI 2020) Glucose Calcium Magnesium Total Bilirubin AST ALT Alkaline Phosphatase Troponin I 79 H* NT-Pro-B Natriuret Pep Total Protein Albumin Procalcitonin TSH Free T4 Urine Color Urine Clarity Urine pH Ur Specific [place] Urine Protein Urine Ketones Urine Blood Urine Nitrite Urine Bilirubin Urine Urobilinogen Ur Leukocyte Esterase Urine RBC Urine WBC Ur Epithelial Cells Urine Crystals Urine Bacteria Urine Casts Urine Mucus Urine Other Ur Culture Indicated? Urine Glucose COVID-19 Source SARS-CoV-2 (PCR) Add-On Test Request DONE 06/13/22 05:55 WBC RBC Hgb Hct MCV MCH MCHC RDW Plt Count MPV Immature Gran % Neutrophils % Lymphocytes % Monocytes % Eosinophils % Basophils % Nucleated RBC % Absolute Neutrophils Absolute Lymphocytes Absolute Monocytes Absolute Eosinophils Absolute Basophils RBC Morphology PT INR APTT Sodium 140 Potassium 3.7 Chloride 104 Carbon Dioxide 24.4 Anion Gap 11.6 H BUN 16 Creatinine 1.1 Est GFR (CKD-EPI 2020) 74.50 Glucose 234 H Calcium 8.5 Magnesium 1.7 L Total Bilirubin AST ALT Alkaline Phosphatase Troponin I NT-Pro-B Natriuret Pep Total Protein Albumin Procalcitonin TSH Free T4 Urine Color Urine Clarity Urine pH Ur Specific [place] Urine Protein Urine Ketones Urine Blood Urine Nitrite Urine Bilirubin Urine Urobilinogen Ur Leukocyte Esterase Urine RBC Urine WBC Ur Epithelial Cells Urine Crystals Urine Bacteria Urine Casts Urine Mucus Urine Other Ur Culture Indicated? Urine Glucose COVID-19 Source SARS-CoV-2 (PCR) Add-On Test Request Objective Narrative Objective Narrative: echo: Technically difficult and suboptimal study Left ventricle is mildly dilated.? Estimated ejection fraction is 30%.? There is paradoxic septal motion consistent with the patient's known LBBB and suspected right ventricular volume overload.? The remainder of the left ventricle is diffusely hypocontractile Right ventricle appears dilated.? Right ventricular systolic function may be mildly reduced Both atria are moderately enlarged There is a mechanical aortic valve prosthesis.? Mean gradient is 6 mmHg.? There is no aortic regurgitation Mitral annular calcification.? Mild mitral regurgitation Normal tricuspid valve with moderate regurgitation.? Estimated right ventricular systolic pressure is 42 mmHg Mildly dilated ascending aorta 3.52 cm Time Spent with Patient Time Spent with Patient: 35-49 minutes Time was spent: preparing to see the patient(eg.review tests), obtaining and/or reviewing separately otained hiistory, ordering medications,tests, procedures, referring, communicating with other health career services manager, indepentently interpreting results, counseling the patient and care coordination
[2022-06-13] MEDS: Enoxaparin 120 MG/0.8 ML SYR SC ×2 (11:25→22:10)
--- NOTE | 2022-06-13 14:30 | CHAPLAIN ---
I had a brief visit with Marquez. He said he's doing much better today. His brought him in yesterday and she is visiting here with him today. I explained my role and offered support.
[2022-06-13 14:53] LABS: Anion Gap 6.6 mmol/L (3-11); BUN 19 mg/dL (7-18); CO2 28.4 mmol/L (21.0-32.0); CREATININE 1.2 mg/dL (0.70-1.30); Chloride 100 mmol/L (98-107); Estimated GFR 67.11 (mL/min/1.73m2); Glucose 323 mg/dL (74-106); Potassium 3.9 mmol/L (3.5-5.1); Sodium 135 mmol/L (136-145)
[2022-06-13] MEDS: Sacubitril/Valsartan 24 mg/26 mg TAB 1 EACH PO (19:55)
[2022-06-13] MEDS: Atorvastatin 20 MG TAB PO (19:55)
[2022-06-14] VITALS (18 sets, daily range): BP systolic 108–131; BP diastolic 45–84; PULSE 72–97; RESP 16–31; TEMP 36.6–37; O2SAT 83–96
--- NOTE | 2022-06-14 | DI.US_ITS ---
Exam(s) US EXTREMITY VENOUS BI EXAM: US EXTREMITY VENOUS BI CLINICAL HISTORY: BLE edema. TECHNIQUE: Bilateral lower extremity venous ultrasound performed using grayscale, color-flow, and sp ectral Doppler analysis. COMPARISON: No exams were available for comparison FINDINGS: The right common femoral, femoral and popliteal veins demonstrate normal compressibility, augmentatio n, and color Doppler. The posterior tibial veins are patent. The saphenofemoral junctions are unremar kable. There is no evidence of a Junior's cyst. The soft tissues are unremarkable. The left common femoral, femoral and popliteal veins demonstrate normal compressibility, augmentation , and color Doppler. The posterior tibial veins are patent. The saphenofemoral junctions are unremark able. There is no evidence of a Junior's cyst. The soft tissues are unremarkable. IMPRESSION: 1. No evidence of a right lower extremity DVT. 2. No evidence of a left lower extremity DVT. DATA REPOSITORY:
[2022-06-14 05:35] LABS: Anion Gap 11.3 mmol/L (3-11); BUN 17 mg/dL (7-18); CO2 25.7 mmol/L (21.0-32.0); CREATININE 1.2 mg/dL (0.70-1.30); Calcium 9.1 mg/dL (8.5-10.1); Chloride 101 mmol/L (98-107); Estimated GFR 67.11 (mL/min/1.73m2); Glucose 253 mg/dL (74-106); INR 1.7 (0.9-1.1); Magnesium 1.8 mg/dL (1.8-2.4); Potassium 3.7 mmol/L (3.5-5.1); Prothrombin Time 17.1 sec (9.3-11.0); Sodium 138 mmol/L (136-145)
[2022-06-14 05:47] LABS: Abs Immature Grans 0.02 10^3/uL (0.0-0.06); Absolute Basophil Count 0.04 10^3/uL (0.0-0.2); Absolute Eosinophil Count 0.13 10^3/uL (0.0-0.7); Absolute Lymphocyte Count 1.21 10^3/uL (1.2-3.4); Absolute Monocyte Count 0.43 10^3/uL (0.1-0.8); Absolute Neutrophil Count 3.33 10^3/uL (1.2-6.7); Basophils % 0.8; Eosinophils % 2.5; HCT 44.4 % (40.0-50.0); HGB 15.1 g/dL (13.5-17.5); Immature Grans % 0.4; Lymphocytes % 23.4; MCH 28.7 pg (27.0-33.0); MCV 84 fL (80-95); MPV 10.6 fL (8.0-11.0); Monocytes % 8.3; Neutrophils % 64.6; Platelet Count 105 10^3/uL (130-400); RBC 5.26 10^6/uL (4.36-5.78); RDW 13.9 % (11.8-14.1); RDW-SD 42.5 fL; WBC 5.16 10^3/uL (4.4-10.8)
[2022-06-14] MEDS: Levothyroxine 25 MCG TAB PO (05:51)
[2022-06-14] MEDS: Levothyroxine 100 MCG TAB 200 MCG PO (05:51)
[2022-06-14] MEDS: Insulin Aspart 300 UNITS/3 ML PEN SC ×2 (08:55→12:34)
[2022-06-14] MEDS: Spironolactone 25 MG TAB PO (09:02)
[2022-06-14] MEDS: Sacubitril/Valsartan 24 mg/26 mg TAB 1 EACH PO (09:02)
[2022-06-14] MEDS: Acetaminophen 500 MG TAB 1000 MG PO (09:03)
[2022-06-14] MEDS: Metoprolol 12.5 MG TAB PO (09:03)
[2022-06-14] MEDS: Normal Saline Flush 10 ML SYR IVP (09:04)
[2022-06-14] MEDS: MAGNESIUM SULFATE 2 GM/50 ML BAG IVPB (09:08)
[2022-06-14] MEDS: Furosemide 40 MG TAB PO (09:36)
[2022-06-14] MEDS: Enoxaparin 120 MG/0.8 ML SYR SC (10:42)
--- NOTE | 2022-06-14 12:17 | W.INDIABCONS ---
Date of service: 06/14/22 Time of Service: 12:17 Diabetes Inpatient Consult Reason for Visit: DM, CHF DESCRIPTION/ASSESSMENT: Met with Mr and Mrs Marquita in ICU today. Francis is newly diagnosed with CHF. PMH: DM2, obesity HTN. Meds include levemir, novolog and metformin. INTERVENTION: Provided education on lower sodium, lower carbohyrate diet. Encouraged increase in non starchy vegetables, lean protein and healthy fats. Provided educational material and contact information for outpatient follow up. PLAN: Francis to follow up in outpatient setting if he desires more education on lifestyle management that can improve Dm or CHF. Time Spent in Nutritional Counseling and Treatment: 15
--- NOTE | 2022-06-14 14:01 | W.PM.DS.N ---
Date of service: 06/14/22 Time of Service: 14:01 DS: Diagnosis Discharge Diagnosis (1) Biventricular heart failure with reduced left ventricular function: Status: Acute (2) Pulmonary hypertension: Status: Acute (3) Sinus pause: Status: Acute (4) Nonsustained paroxysmal ventricular tachycardia: Status: Acute (5) Elevated troponin: Status: Acute (6) Obstructive sleep apnea: Status: Chronic (7) H/O aortic valve replacement: (8) Subtherapeutic international normalized ratio (INR): Status: Acute (9) Hypomagnesemia: Status: Acute (10) Hypoxia: Status: Acute Discharge Plan Disposition Patient Disposition: Home Condition: Improving Discharge Details Reason For Visit: CHF Admit Date/Time: 06/12/22 21:31 Admit Provider: Salvador Sales Attending Provider: Salvador Sales Primary Care Provider: Yohana Prado V Hospital Course Hospital Course: Mr Juárez is a 66 year old male with PMHx of HFrEF (prior LVEF was 40%), as well as h/o mechanical aortic valve, hypertension, hypothyroidism, IDDM2, who was a patient on [facility] hospitalist service from 06/12/22/ until 06/14/22 having presented with acute on chronic sytolic + R-sided CHF. The patient was aggressively diuresed and is net 8.4 L negative at the time of discharge. While in the hospital, he was on furosemide 40 mg IV BID. He underwent an echocardiogram which showed bivetricular dysfucntion. His LVEF was 30% w/ paradoxic septal motion c/w LBBB and diffuse hypocontractility. R ventricular systolic function was also reduced. The patient's mechanical aortic valve was functioning well. He did have evidence of pulmonary hypertension with RVSP of 42 mmHg. He had mildly elevated troponins not c/w ACS, thought to be due to heart failure. He was evaluated by cardiology. Dr Vizcaino recommended an outpatient evaluation for an AICD and ventricular resynchronization therapy, addition of spironolactone, substitution of losartan with entresto (the patient was able to tolerate entresto despite previously reported cough to lisinopril). He did have evidence of frequent PVCs and at least one run of nonsustained Vtach (7 beast) documented on the monitor. His magnesium was repleted. We did hold the patient's metoprolol given his significant sinus pauses of >3.8 sec while on it. The patient may potentially benefit from outpatient ischemic workup, but there is no clinical evidence of an ACS on this admission or precipitating this admission. This is being deferred to his outpatient aviation program manager at [facility]. Given his LE edema, we did rule out a DVT with negative venous dopplers. He was bridged with levonox for his subtherapeutic INR. As his TSH was 7.12, we did increase his levothyroxine from 225 mcg daily to 250 mcg daily. His furosemide dose on discharge is 40 mg PO BID x 5 days, then 40 mg PO daily. He received education on a low sodium diet. The patient's pulmonary hypertension and snoring behavior warrant a referral for a sleep study, which has been placed. On ambulation, the patient desaturated to 88% on RA. He would benefit from 1 L of O2 on ambulation only. This is being arranged prior to his discharge. The patient was offered to remain in the hospital for continued diuresis but due to clinical improvement and urgent plans requested to be discharged today. He was discharged with instructions to weigh himself daily and take an extra 40 mg of furosemide if his weight went up by 3 lbs in 3 days. He should have bloodwork on 06/19/22 (BMP, magnesium, INR). Results should go to PCP. Care for patient as well as completion of his discharge paperwork on the day of discharge took 45 minutes. Home Meds and New Rx's Prescriptions: New furosemide 40 mg Tablet See Rx Instructions .ROUTE .COMPLEX Qty: 35 0RF Rx Instructions: 40 mg PO BID at 8 am and 2 pm x 5 days, then 40 mg PO daily. spironolactone 25 mg Tablet 25 mg PO DAILY Qty: 30 0RF Entresto 24-26 mg Tablet 1 ea PO BID Qty: 60 0RF enoxaparin 120 mg/0.8 mL Syringe 120 mg subcut Q12H Qty: 8 0RF warfarin [Jantoven] 5 mg Tablet 15 mg PO QPM Qty: 90 0RF magnesium oxide 400 mg magnesium capsule 400 mg PO DAILY Qty: 10 0RF Continued atorvastatin 20 mg Tablet 20 mg PO HS lidocaine 5 % Ointment 1 applic TOPICAL QID PRN Taltz Autoinjector 80 mg/mL Auto-Injector 80 mg SUBCUT DIRECTED Rx Instructions: one injection from auto injector [id number] metformin [Glucophage] 1,000 MG tablet 500 mg PO BID metoprolol tartrate 25 MG tablet 25 mg PO BID insulin aspart U-100 [Novolog PenFill U-100 Insulin] 100 UNIT/ML cartridge SQ PRN PRN Patient Comments: sliding scale Levemir FlexTouch U-100 Insuln 300 UNITS/3 ML insulin pen 40 unit SQ BID meclizine 25 mg tablet 25 mg PO BID PRN (Reason: dizziness) Qty: 14 0RF Rx Instructions: Take 1 tablet 2-3 times a day as needed for dizziness Changed levothyroxine 50 mcg tablet 50 mcg PO DAILY Qty: 30 0RF Patient Comments: TAKE 1/2 TABLET BY MOUTH ONCE A DAY WITH 200MCG TABLET Rx Instructions: for a total dose of 250 mcg daily levothyroxine [Synthroid] 200 MCG tablet 200 mcg PO DAILY Qty: 30 0RF Rx Instructions: Take in addition to the 50 mcg tablet for a total dose of 250 mcg daily. Discontinued losartan 50 mg Tablet 50 mg PO DAILY warfarin 5 mg Tablet 5 mg PO DIRECTED warfarin [Coumadin] 10 MG tablet 10 mg PO DAILY Patient Comments: 15 mg on Sunday, 12.5 mg on Sunday and 10 mg the rest of the days Discharge Instructions Instructions: Spironolactone (By mouth), Furosemide (By mouth), Enoxaparin (By injection), Sacubitril/Valsartan (By mouth), Heart Failure (DC), Sleep Apnea (DC), Using Oxygen at Home (DC), Low-Sodium Diet (DC) Additional Instructions: Return to the hospital with any fever, bleeding, chest pain, or shortness of breath. Follow up with your PCP and with your aviation program manager in 1-2 weeks. Follow up for your sleep study. Use 1 L of oxygen with activity. Follow a low sodium diet. Weigh yourself daily at the same time wearing the same amount of clothes and keep a log of your weights. If you notice that you have gained 3 lbs in 3 days, take an extra dose of furosemide. Take the log of your weights to your PCP and/or your aviation program manager. Take lovenox until your INR is 2-3. Blood work 06/19/22. Referrals: [facility] [OTHER] - Yohana Prado MD [Primary Care Provider] - 06/19/22 2:00 pm (Previously scheduled appointment for Follow up) Activity:: Activity as Tolerated Equipment/Supplies:: O2 at 1 L/min with ambula Diet:: consistent carb heart healthy Discharge Orders Discharge Orders: Discharge Order (Routine); Ordered 06/14/22 Ordered By: Jazmyn Rodriguez Other Ambulatory Orders: Basic Metabolic Panel (Routine) Timeframe: 20220619 Facility: [facility] - Location: Laboratory Outpatient - [facility] Ordered By: Jazmyn Rodriguez Magnesium (Routine) Timeframe: 20220619 Facility: [facility] - Location: Laboratory Outpatient - [facility] Ordered By: Jazmyn Rodriguez Prothrombin Time (Routine) Timeframe: 20220619 Facility: [facility] - Location: Laboratory Outpatient - [facility] Ordered By: Jazmyn Rodriguez DS: Summary Time Spent with Patient providing and/or coordinating discharge services: Greater than 30 minutes Status at Discharge Functional status at discharge: independent ambulation Overall status at discharge: patient is progressing back to baseline Mental Status: mental status grossly normal Speech and Movement: speech and movement normal Mood: congruent mood Affect: normal affect Exam Narrative Exam Narrative: General: Pleasant middle-aged male who is A&Ox3, overall looks better. No dyspnea/tachypnea while sitting up at the edge of the bed, mild sypnea when laying down nearly flat. HEENT: EOMI, MMM Heart: RRR, + SOREN of a mechanical aortic valve Lungs: rales at B bases Abdomen: soft, obese, nontender Extremities: 2+ pitting edema BLEs, symmetric Psych Mental Status: mental status grossly normal Speech and Movement: speech and movement normal Mood: congruent mood Affect: normal affect DS: Data Vitals/I&O Vitals and I&O: Vital Signs Temperature 36.6 C 06/14/22 13:25 Temperature Source Tympanic 06/14/22 13:25 Pulse 75 06/14/22 13:25 Pulse 83 06/14/22 10:02 Respiratory Rate 23 06/14/22 13:25 Respiratory Effort Short of Breath, Labored 06/14/22 13:25 Respiratory Depth Normal 06/14/22 13:25 Respiratory Pattern Normal 06/14/22 13:25 Blood Pressure 108/60 06/14/22 10:01 Blood Pressure Mean 68 06/14/22 10:01 Blood Pressure Position Supine 06/14/22 13:25 Pulse Oximetry 90 L 06/14/22 13:25 Oxygen Delivery Method Room Air 06/14/22 13:25 Oxygen Flow Rate 0 06/14/22 13:25 Pain Level 5 06/14/22 13:25 Intake & Output 06/13/22 06/14/22 06/14/22 23:59 11:59 23:59 Intake Total 622 / 1022 582 / 632 50 / 632 Output Total 3600 / 6900 1675 / 1675 Balance -2978 / -5878 -1093 / -1043 50 / -1043 Weight 121.9 kg Intake: IV 50 / 50 Oral 622 / 1022 582 / 582 Output: Urine 3600 / 6900 1675 / 1675 Other: Urine Color Pale Straw Yellow Urine Appearance Clear Clear Urine Odor None Normal Stool Size Large Stool Characteristics Soft Brown Voiding Methods Urinal Urinal Data Completed and Pending Completed studies during hospitalization [Text1]: CTA chest :No evidence of pulmonary embolism. Cardiomegaly and small right pleural effusion.? Increased basilar densities may represent mild pulmonary edema versus dependent changes..? Infiltrates not excluded.? Small amount of ascites is noted on the upper abdomen. Echo: Left ventricle is mildly dilated.? Estimated ejection fraction is 30%.? There is paradoxic septal motion consistent with the patient's known LBBB and suspected right ventricular volume overload.? The remainder of the left ventricle is diffusely hypocontractile Right ventricle appears dilated.? Right ventricular systolic function may be mildly reduced Both atria are moderately enlarged There is a mechanical aortic valve prosthesis.? Mean gradient is 6 mmHg.? There is no aortic regurgitation Mitral annular calcification.? Mild mitral regurgitation Normal tricuspid valve with moderate regurgitation.? Estimated right ventricular systolic pressure is 42 mmHg Mildly dilated ascending aorta 3.52 cm Venous doppler BLEs; 1. No evidence of a right lower extremity DVT. 2. No evidence of a left lower extremity DVT. Labs on day of discharge: Labs from last 24 hours 06/14/22 06/14/22 06/14/22 05:00 05:00 05:00 WBC 5.16 RBC 5.26 Hgb 15.1 Hct 44.4 MCV 84 D MCH 28.7 MCHC 34.0 D RDW 13.9 Plt Count 105 L MPV 10.6 Immature Gran % 0.4 Neutrophils % 64.6 Lymphocytes % 23.4 Monocytes % 8.3 Eosinophils % 2.5 Basophils % 0.8 Nucleated RBC % 0.0 Absolute Neutrophils 3.33 Absolute Lymphocytes 1.21 Absolute Monocytes 0.43 Absolute Eosinophils 0.13 Absolute Basophils 0.04 PT 17.1 H INR 1.7 H Sodium 138 Potassium 3.7 Chloride 101 Carbon Dioxide 25.7 Anion Gap 11.3 H BUN 17 Creatinine 1.2 Est GFR (CKD-EPI 2020) 67.11 Glucose 253 H Calcium 9.1 Magnesium 1.8 06/13/22 14:27 WBC RBC Hgb Hct MCV MCH MCHC RDW Plt Count MPV Immature Gran % Neutrophils % Lymphocytes % Monocytes % Eosinophils % Basophils % Nucleated RBC % Absolute Neutrophils Absolute Lymphocytes Absolute Monocytes Absolute Eosinophils Absolute Basophils PT INR Sodium 135 L Potassium 3.9 Chloride 100 Carbon Dioxide 28.4 Anion Gap 6.6 BUN 19 H Creatinine 1.2 Est GFR (CKD-EPI 2020) 67.11 Glucose 323 H Calcium 9.0 Magnesium PFSH All Active Problems (Updated 06/14/22 @ 14:18 by Jazmyn Rodriguez MD) Hypoxia (Acute) Nonsustained paroxysmal ventricular tachycardia (Acute) Sinus pause (Acute) Elevated troponin (Acute) Discharge planning issues (Acute) Hypomagnesemia (Acute) Subtherapeutic international normalized ratio (INR) (Acute) Obstructive sleep apnea (Chronic) Pulmonary hypertension (Acute) Biventricular heart failure with reduced left ventricular function (Acute) CHF (congestive heart failure) (Chronic) Hand laceration (Acute) Multiple lacerations (Acute) Dizziness (Acute) Acute exacerbation of CHF (congestive heart failure) (Acute) Medical History Aortic stenosis Bilateral shoulder pain Cervicalgia Daytime somnolence Diabetes mellitus Elbow pain, right Endocarditis Fatty liver History of anticoagulant therapy Hx of sepsis Hyperlipidemia Hypothyroid Lupus transient, from Remicaide Murmur Paresthesia of both hands Psoriasis Radial nerve dysfunction Renal insufficiency Sleepiness Surgical History H/O aortic valve replacement Social History Smoking/Tobacco Use Status: Former Tobacco Use Smoking risk assessment performed?: Yes Alcohol Intake: never Drug use: Never Substance use type: does not use Household members: spouse Housing: house Number of Children: 2 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
--- NOTE | 2022-06-14 17:56 | PDOC.CMDIS ---
- If Service Date Differs Date of service: 06/14/22 Time of Service: 17:56 LACE Index Scoring Tool - Questions: Length of Stay (in days): 2 Acuity (Admit via E.D.?): Yes Comorbidities: Diabetes w/o Complication, Congestive Heart Failure E.D. Visits: 3 - Answers: Total Score: 11 Risk of Readmission: High Risk Care Management Discharge Reason for Hospitalization: CHF Discharge Plan: Marquez returned home today with new orders for home O2. RT coordinated home O2 through [facility]. He will follow up with his PCP and discharge plan of care, and his transported him home. He was happy to be returning home. Patient/Family Education Needs: Review discharge instructions and limitations, discussion of self care needs including ask me three. Services Needed at Discharge: Oxygen Therapy
== END 2022-06-14 16:00 | disposition home or self-care (01) ==
LOC: ER 23:15 → ICU 23:16
PROVIDERS: Internal Medicine; Admitting Provider General Practice; Emergency Provider Emergency Medicine; PCP Family Medicine; Visit Provider General Practice
DX: I11.0 Hypertensive heart disease with heart failure (principal); I50.23 Acute on chronic systolic (congestive) heart failure; I47.20 Ventricular tachycardia, unspecified; R60.0 Localized edema; Z79.4 Long term (current) use of insulin; Z79.84 Long term (current) use of oral hypoglycemic drugs; K76.0 Fatty (change of) liver, not elsewhere classified; E11.9 Type 2 diabetes mellitus without complications; E78.5 Hyperlipidemia, unspecified; E03.9 Hypothyroidism, unspecified; R06.02 Shortness of breath; I44.7 Left bundle-branch block, unspecified; I08.1 Rheumatic disorders of both mitral and tricuspid valves; R74.8 Abnormal levels of other serum enzymes; I49.5 Sick sinus syndrome; I27.20 Pulmonary hypertension, unspecified; G47.33 Obstructive sleep apnea (adult) (pediatric); E83.42 Hypomagnesemia; R09.02 Hypoxemia; Z95.2 Presence of prosthetic heart valve; Z79.01 Long term (current) use of anticoagulants; Z20.822 Contact with and (suspected) exposure to COVID-19
CPT/HCPCS: 36415; 36416; 71275; 80048; 80053; 82962; 84145; 87635; 93005; 94618; 96365; 96366; 96372; 96374; 99285; 81003; 81015; 83735; 83880; 84439; 84443; 84484; 85025; 85610; 85730; 93010; 93306; 93970; 99222; 99233; 99239; G0378; J1650; J1940; J3490

== ENCOUNTER 2022-06-19 15:49 | Outpatient (REF) | payer BC, SELFPAY ==
[2022-06-19 19:36] LABS: Anion Gap 8.9 mmol/L (3-11); BUN 20 mg/dL (7-18); CO2 25.1 mmol/L (21.0-32.0); CREATININE 1.2 mg/dL (0.70-1.30); Calcium 9.4 mg/dL (8.5-10.1); Chloride 103 mmol/L (98-107); Estimated GFR 67.11 (mL/min/1.73m2); Glucose 140 mg/dL (74-106); Magnesium 1.7 mg/dL (1.8-2.4); Potassium 3.8 mmol/L (3.5-5.1); Sodium 137 mmol/L (136-145)
== END 2022-06-19 15:50 | disposition home or self-care (01) ==
LOC: NCHCN 15:49
PROVIDERS: PCP Family Medicine; Visit Provider Family Medicine
DX: I50.9 Heart failure, unspecified (principal)
CPT/HCPCS: 80048; 83735

== ENCOUNTER 2022-07-03 16:00 | Outpatient (REF) | payer BC, SELFPAY ==
[2022-07-03 19:16] LABS: Anion Gap 11.7 mmol/L (3-11); BUN 38 mg/dL (7-18); CO2 23.3 mmol/L (21.0-32.0); CREATININE 1.3 mg/dL (0.70-1.30); Calcium 9.6 mg/dL (8.5-10.1); Chloride 101 mmol/L (98-107); Estimated GFR 60.96 (mL/min/1.73m2); Glucose 177 mg/dL (74-106); Potassium 4.3 mmol/L (3.5-5.1); Sodium 136 mmol/L (136-145)
[2022-07-03 19:27] LABS: Hemoglobin A1C 9.2 % (<5.7)
== END 2022-07-03 16:01 | disposition home or self-care (01) ==
LOC: NCHCN 16:00
PROVIDERS: PCP Family Medicine; Visit Provider Family Medicine
DX: E11.65 Type 2 diabetes mellitus with hyperglycemia (principal)
CPT/HCPCS: 80048; 83036; 83735

== ENCOUNTER 2022-07-31 15:16 | Outpatient (REF) | payer BC, SELFPAY ==
[2022-07-31 17:23] LABS: Anion Gap 12.4 mmol/L (3-11); BUN 30 mg/dL (7-18); CO2 21.6 mmol/L (21.0-32.0); CREATININE 1.4 mg/dL (0.70-1.30); Calcium 9.4 mg/dL (8.5-10.1); Chloride 104 mmol/L (98-107); Estimated GFR 55.78 (mL/min/1.73m2); Glucose 132 mg/dL (74-106); Potassium 4.4 mmol/L (3.5-5.1); Sodium 138 mmol/L (136-145); TSH (W/Ref FT4) 1.86 uIU/mL (0.36-3.74)
== END 2022-07-31 15:17 | disposition home or self-care (01) ==
LOC: NCHCN 15:16
PROVIDERS: PCP Family Medicine; Visit Provider Family Medicine
DX: E03.9 Hypothyroidism, unspecified (principal); I27.20 Pulmonary hypertension, unspecified
CPT/HCPCS: 80048; 83735; 84443

== ENCOUNTER 2022-09-18 13:11 | Outpatient (REF) | payer BC, SELFPAY ==
[2022-09-18 17:28] LABS: Abs Immature Grans 0.02 10^3/uL (0.0-0.06); Absolute Basophil Count 0.04 10^3/uL (0.0-0.2); Absolute Eosinophil Count 0.12 10^3/uL (0.0-0.7); Absolute Lymphocyte Count 1.02 10^3/uL (1.2-3.4); Absolute Monocyte Count 0.41 10^3/uL (0.1-0.8); Absolute Neutrophil Count 2.77 10^3/uL (1.2-6.7); Basophils % 0.9; Eosinophils % 2.7; HGB 14.9 g/dL (13.5-17.5); Immature Grans % 0.5; Lymphocytes % 23.3; MCH 28.8 pg (27.0-33.0); MCHC 33.9 % (32.0-36.0); MCV 85 fL (80-95); MPV 11.5 fL (8.0-11.0); Monocytes % 9.4; Neutrophils % 63.2; Platelet Count 138 10^3/uL (130-400); RBC 5.18 10^6/uL (4.36-5.78); RDW 14.1 % (11.8-14.1); RDW-SD 43.7 fL; WBC 4.38 10^3/uL (4.4-10.8)
[2022-09-18 17:39] LABS: Prothrombin Time 20.5 sec (9.3-11.0)
[2022-09-18 18:47] LABS: ALT 36 U/L (16-63); Alkaline Phosphatase 80 U/L (46-116); Anion Gap 15.7 mmol/L (3-11); BUN 39 mg/dL (7-18); Bilirubin, Total 0.5 mg/dL (0.2-1.0); CO2 18.3 mmol/L (21.0-32.0); CREATININE 1.3 mg/dL (0.70-1.30); Calcium 9.2 mg/dL (8.5-10.1); Chloride 108 mmol/L (98-107); Estimated GFR 60.96 (mL/min/1.73m2); Glucose 167 mg/dL (74-106); Potassium 4.4 mmol/L (3.5-5.1); Sodium 142 mmol/L (136-145); Total Protein 8.1 g/dL (6.4-8.2)
[2022-09-18 19:01] LABS: Hemoglobin A1C 7.6 % (<5.7)
[2022-09-18 19:59] LABS: AST 22 U/L (15-37)
== END 2022-09-18 13:12 | disposition home or self-care (01) ==
LOC: NCHCN 13:11
PROVIDERS: PCP Family Medicine; Visit Provider Family Medicine
DX: I50.1 Left ventricular failure, unspecified (principal); L40.9 Psoriasis, unspecified; I27.20 Pulmonary hypertension, unspecified; Z79.01 Long term (current) use of anticoagulants
CPT/HCPCS: 80053; 83036; 85025; 85610

== ENCOUNTER 2022-10-16 13:35 | Outpatient (REF) | payer BC, SELFPAY ==
[2022-10-16 16:59] LABS: INR 2.6 (0.9-1.1); Prothrombin Time 26.3 sec (9.3-11.0)
== END 2022-10-16 13:36 | disposition home or self-care (01) ==
LOC: NCHCN 13:35
PROVIDERS: PCP Family Medicine; Visit Provider Family Medicine
DX: Z79.01 Long term (current) use of anticoagulants (principal); Z51.81 Encounter for therapeutic drug level monitoring
CPT/HCPCS: 85610

== ENCOUNTER 2022-12-07 09:38 | Outpatient (REF) | payer BC, SELFPAY ==
[2022-12-07 15:35] LABS: Abs Immature Grans 0.01 10^3/uL (0.0-0.06); Absolute Basophil Count 0.05 10^3/uL (0.0-0.2); Absolute Eosinophil Count 0.12 10^3/uL (0.0-0.7); Absolute Lymphocyte Count 1.32 10^3/uL (1.2-3.4); Absolute Neutrophil Count 3.07 10^3/uL (1.2-6.7); Eosinophils % 2.4; HCT 45.1 % (40.0-50.0); HGB 15.5 g/dL (13.5-17.5); Immature Grans % 0.2; MCH 29.5 pg (27.0-33.0); MCHC 34.4 % (32.0-36.0); MCV 86 fL (80-95); MPV 10.4 fL (8.0-11.0); Monocytes % 9.9; Neutrophils % 60.5; Platelet Count 157 10^3/uL (130-400); RBC 5.25 10^6/uL (4.36-5.78); RDW 13.2 % (11.8-14.1); RDW-SD 41.1 fL; WBC 5.07 10^3/uL (4.4-10.8)
[2022-12-07 15:57] LABS: ALT 25 U/L (16-63); AST 20 U/L (15-37); Albumin 3.8 g/dL (3.4-5.0); Alkaline Phosphatase 75 U/L (46-116); Anion Gap 12.2 mmol/L (3-11); BUN 29 mg/dL (7-18); Bilirubin, Total 0.5 mg/dL (0.2-1.0); CO2 21.8 mmol/L (21.0-32.0); CREATININE 1.3 mg/dL (0.70-1.30); Calcium 9.4 mg/dL (8.5-10.1); Chloride 106 mmol/L (98-107); Creatine Kinase 141 U/L (39-308); Estimated GFR 60.96 (mL/min/1.73m2); Glucose 100 mg/dL (74-106); Potassium 4.2 mmol/L (3.5-5.1); Sodium 140 mmol/L (136-145); Total Protein 7.9 g/dL (6.4-8.2)
[2022-12-07 17:22] LABS: Hemoglobin A1C 8.1 % (<5.7)
== END 2022-12-07 09:39 | disposition home or self-care (01) ==
LOC: NCHCN 09:38
PROVIDERS: PCP Family Medicine; Visit Provider Family Medicine
DX: E11.65 Type 2 diabetes mellitus with hyperglycemia (principal); E78.5 Hyperlipidemia, unspecified; Z95.810 Presence of automatic (implantable) cardiac defibrillator; Z79.1 Long term (current) use of non-steroidal anti-inflammatories (NSAID); R42 Dizziness and giddiness
CPT/HCPCS: 80053; 82550; 83036; 85025

== ENCOUNTER 2022-12-20 16:03 | Emergency (ER) | payer BC, SELFPAY ==
[2022-12-20] VITALS (19 sets, daily range): BP systolic 131–151; BP diastolic 65–80; PULSE 52–68; RESP 12–30; TEMP 36.8; O2SAT 95
--- NOTE | 2022-12-20 18:30 | RT.EKG_ITS ---
APPROVED REPORT Exam: Resting ECG Reason for Exam: dizziness Patient Location: E HR:55 bpm ECG Measurements Heart Rate 55 AXIS NH 143 P -11 QRSd 156 QRS -73 QT 509 T 25 QTc 486 Conclusion Atrial-sensed ventricular-paced rhythm...ventricular pacing tracks p-waves Biventricular paced rhythm...non-simultaneous bi-vent pacing
[2022-12-20] MEDS: Normal Saline 1,000 ML 125 ML IV (18:57)
--- NOTE | 2022-12-20 19:00 | ED.GENADUL_ITS ---
Discharge Plan Disposition Patient Disposition: Home Condition: Good Discharge Details Clinical Impression: Vertigo Primary Care Provider: Yohana Prado V ED Provider: Shea Cuba Home Meds and New Rx's Prescriptions: Continued atorvastatin 20 mg Tablet 20 mg PO HS lidocaine 5 % Ointment 1 applic TOPICAL QID PRN Taltz Autoinjector 80 mg/mL Auto-Injector 80 mg SUBCUT DIRECTED Rx Instructions: one injection from auto injector [id number] metformin [Glucophage] 1,000 MG tablet 500 mg PO BID metoprolol tartrate 25 MG tablet 25 mg PO BID furosemide 40 mg Tablet See Rx Instructions .ROUTE .COMPLEX Qty: 35 0RF Rx Instructions: 40 mg PO BID at 8 am and 2 pm x 5 days, then 40 mg PO daily. spironolactone 25 mg Tablet 25 mg PO DAILY Qty: 30 0RF Entresto 24-26 mg Tablet 1 ea PO BID Qty: 60 0RF enoxaparin 120 mg/0.8 mL Syringe 120 mg subcut Q12H Qty: 8 0RF warfarin [Jantoven] 5 mg Tablet 15 mg PO QPM Qty: 90 0RF magnesium oxide 400 mg magnesium capsule 400 mg PO DAILY Qty: 10 0RF levothyroxine 50 mcg tablet 50 mcg PO DAILY Qty: 30 0RF Patient Comments: TAKE 1/2 TABLET BY MOUTH ONCE A DAY WITH 200MCG TABLET Rx Instructions: for a total dose of 250 mcg daily insulin aspart U-100 [Novolog PenFill U-100 Insulin] 100 UNIT/ML cartridge 100 units SQ PRN PRN Patient Comments: sliding scale Levemir FlexTouch U100 Insulin 300 UNITS/3 ML insulin pen 40 unit SQ BID meclizine 25 mg tablet 25 mg PO BID PRN (Reason: dizziness) Qty: 14 0RF Rx Instructions: Take 1 tablet 2-3 times a day as needed for dizziness No Action levothyroxine [Synthroid] 200 MCG tablet 225 mcg PO DAILY Rx Instructions: Take in addition to the 50 mcg tablet for a total dose of 250 mcg daily. Discharge Instructions Instructions: Vertigo (ED) Additional Instructions: Return home and rest. Drink plenty of fluids. You can take the meclizine 25 to 50 mg as needed for dizziness. Please return to ED for severe vertigo with vomiting, severe headache, any other neurologic deficits. Recheck with your PCP this week. Discharge Data Discharge Date/Time-TO BE ENTERED AT DEPARTURE: 12/20/22 20:59 Medical Decision Making Patient was completely nontoxic-appearing in the ED. His neurological exam was normal and intact. There was no nystagmus. His pacer was interrogated and showed no evidence of any abnormalities since September 20. We talked about central versus peripheral vertigo. He certainly has risk factors for vascular disease. We talked about posterior fossa disease, inner ear disease such as vestibulitis and BPPV, etc. He has had brief episodes of vertigo in the past and has been given meclizine for this. Today's episode does not sound severe as he continued to sit at his desk with his eyes open and was able to get up and walk to the car. We talked about CTA and the patient is not in favor of this at this time; with his sxs resolved I do not think it will be productive. He will see his PCP in follow-up this week for recheck. He will return to ED for recurrent symptoms that do not quickly resolve. Medical Records Medical records reviewed: Yes I reviewed the patient's medical records. Lab Data Lab results reviewed: Yes I reviewed the patient's lab results. ECG Data Attestation: I personally reviewed and interpreted this ECG (s) as follows: ( Paced rhythm at 55, changed from prior on 06/13/2022 at which time he had a left bundle branch block, PVCs, and was in normal sinus rhythm.) HPI General Date/Time Provider Initiated Documentation: 12/20/22 18:40 . HPI Narrative: This 66-year-old male patient presents with a chief complaint of vertigo that began earlier today at work. 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 He had onset of dizziness but does describe movement in the room. He says his was going back and forth. He has had this in the past and was given meclizine. He says he felt a little bit lightheaded with it and just continue to sit there. He denies nausea or vomiting. There were no focal neurologic deficits, tinnitus, or hearing change. Patient does have a pacer/AICD for VT and has had CHF in the past. He has adult onset diabetes. He states the dizziness lasted several hours and resolved when he came into the emergency department. Not bring it on by head movement or position change. He denies any recent viral illness. He has no headache. He was able to get up and walk to the car to come in. Related Data Home Medications Medication Instructions Recorded Confirmed metformin 1,000 mg tablet 500 mg PO BID 11/11/13 12/20/22 (Glucophage) metoprolol tartrate 25 mg tablet 25 mg PO BID 11/11/13 06/12/22 insulin aspart U-100 100 unit/mL 100 units SQ PRN PRN 04/29/17 12/20/22 subcutaneous cartridge (Novolog PenFill U-100 Insulin aspart) insulin detemir U-100 100 unit/mL 40 unit SQ BID 04/29/17 12/20/22 (3 mL) subcutaneous pen (Levemir FlexTouch U-100 Insulin) atorvastatin 20 mg tablet 20 mg PO HS 05/19/19 12/20/22 ixekizumab 80 mg/mL subcutaneous 80 mg subcut DIRECTED 05/19/19 12/20/22 auto-injector ([facility] Autoinjector) lidocaine 5 % topical ointment 1 applic topical QID PRN 05/19/19 06/12/22 meclizine 25 mg tablet 25 mg PO BID PRN dizziness #14 tabs 06/09/22 06/12/22 enoxaparin 120 mg/0.8 mL 120 mg (0.8 mL) subcut Q12H #8 mL 06/14/22 subcutaneous syringe furosemide 40 mg tablet See Rx Instructions .Route 06/14/22 12/20/22 .COMPLEX #35 tabs levothyroxine 50 mcg tablet 50 mcg PO DAILY #30 tabs 06/14/22 magnesium oxide 400 mg PO DAILY #10 caps 06/14/22 sacubitril 24 mg-valsartan 26 mg 1 ea PO BID #60 tabs 06/14/22 12/20/22 tablet (Entresto) spironolactone 25 mg tablet 25 mg PO DAILY #30 tabs 06/14/22 12/20/22 warfarin 5 mg tablet (Jantoven) 15 mg PO QPM #90 tabs 06/14/22 12/20/22 levothyroxine 200 mcg tablet 225 mcg PO DAILY 12/20/22 12/20/22 (Synthroid) Previous Rx's Medication Instructions Recorded meclizine 25 mg tablet 25 mg PO BID PRN dizziness #14 tabs 06/09/22 enoxaparin 120 mg/0.8 mL 120 mg (0.8 mL) subcut Q12H #8 mL 06/14/22 subcutaneous syringe furosemide 40 mg tablet See Rx Instructions .Route 06/14/22 .COMPLEX #35 tabs levothyroxine 50 mcg tablet 50 mcg PO DAILY #30 tabs 06/14/22 magnesium oxide 400 mg PO DAILY #10 caps 06/14/22 sacubitril 24 mg-valsartan 26 mg 1 ea PO BID #60 tabs 06/14/22 tablet (Entresto) spironolactone 25 mg tablet 25 mg PO DAILY #30 tabs 06/14/22 warfarin 5 mg tablet (Jantoven) 15 mg PO QPM #90 tabs 06/14/22 Allergies Allergy/AdvReac Type Severity Reaction Status Date / Time lisinopril Allergy Severe Unverified 06/12/22 22:38 Penicillins Allergy Severe Swelling/Ed Unverified 06/12/22 22:38 omar cyclosporine Allergy Mild Unverified 06/12/22 22:38 infliximab [From Remicade] AdvReac Severe Gave him Unverified 06/12/22 22:38 Lopus adalimumab [From Humira] AdvReac Intermediate Skin Rash Unverified 06/12/22 22:38 clindamycin AdvReac Intermediate Skin Rash Unverified 06/12/22 22:38 ustekinumab [From Stelara] AdvReac Intermediate Skin Rash Unverified 06/12/22 22:38 General Stated Complaint: Dizzy/Sync LEDA: 3 Review of Systems Constitutional Constitutional: Denies chills, Denies fever(s), Denies headache(s) and Denies weakness Eyes Eyes: Denies diplopia and Reports other (no redness) ENT Ears, Nose, Mouth, and Throat: Reports vertigo, Denies otalgia, Denies headache(s), Denies nasal congestion, Denies nasal discharge, Denies neck pain and Denies sore throat Cardiovascular Cardiovascular: Denies chest pain, Denies palpitations and Denies dyspnea Respiratory Respiratory: Denies cough and Denies dyspnea Gastrointestinal Gastrointestinal: Denies abdominal pain, Denies diarrhea, Denies nausea and Denies vomiting Genitourinary Genitourinary: Denies difficulty urinating and Denies dysuria Musculoskeletal Musculoskeletal: Denies myalgias, Denies muscle weakness, Denies neck pain, Denies numbness and Reports other (edema) Integumentary/Breasts Skin/Breast: Denies change in pigmentation and Denies rash Neurologic Neurologic: Reports vertigo, Denies headache(s), Denies numbness, Denies weakness and Reports other (lightheaded) Endocrine Endocrine: Denies palpitations PFSH All Active Problems Vertigo (Acute) Hypoxia (Acute) Nonsustained paroxysmal ventricular tachycardia (Acute) Sinus pause (Acute) Elevated troponin (Acute) Hypomagnesemia (Acute) Subtherapeutic international normalized ratio (INR) (Acute) Obstructive sleep apnea (Chronic) Pulmonary hypertension (Acute) Biventricular heart failure with reduced left ventricular function (Acute) CHF (congestive heart failure) (Chronic) Hand laceration (Acute) Multiple lacerations (Acute) Acute exacerbation of CHF (congestive heart failure) (Acute) Medical History Aortic stenosis Bilateral shoulder pain Cervicalgia Daytime somnolence Diabetes mellitus Elbow pain, right Endocarditis Fatty liver History of anticoagulant therapy Hx of sepsis Hyperlipidemia Hypothyroid Lupus transient, from Remicaide Murmur Paresthesia of both hands Psoriasis Radial nerve dysfunction Renal insufficiency Sleepiness Surgical History H/O aortic valve replacement Social History Smoking/Tobacco Use Status: Former Tobacco Use Smoking risk assessment performed?: Yes Alcohol Intake: never Drug use: Never Substance use type: does not use Household members: spouse Housing: house Number of Children: 2 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 What type of physical activity do you participate in: walking and independent ambulation Do you feel safe at home: Yes Do you feel safe in your relationship?: Yes Exam Const General: no acute distress, well developed, well groomed and not in acute distress Nutritional Appearance: well nourished Orientation: alert and oriented x3 HENMT Head: normocephalic and atraumatic Ears: external ears normal Mouth: oropharynx normal and moist mucous membranes Throat: posterior oropharynx normal Eyes Conjunctivae: conjunctivae normal Neck Neck: full ROM and supple Chest Chest: normal inspection of the chest Resp Effort & Inspection: normal respiratory effort Auscultation: clear to auscultation bilaterally Cardio Rate: regular rate Rhythm: regular rhythm Heart Sounds: no murmurs and no rubs GI Inspection: normal to inspection Palpation: soft, nontender and other (non distended) Auscultation: normal bowel sounds Skin General skin exam: no rashes or lesions noted and other (pink, warm, dry) Neuro General: patient alert, patient awake and patient oriented x3 Cranial Nerves: CN's II-XI intact bilaterally Cognition: normal cognition Speech: speech normal Gait: normal gait Motor: muscle tone normal throughout, strength 5/5 throughout and other (LANCE) Sensory Exam: no sensory deficits noted Coordination: [id number] test normal and Romberg test normal Extrem General: normal to inspection, full ROM and pedal edema present Psych Mental Status: mental status grossly normal Speech and Movement: speech and movement normal Affect: normal affect Course Vital Signs Vital signs: Vital Signs Temperature 36.8 C 12/20/22 16:28 Pulse 64 12/20/22 16:28 Respiratory Rate 18 12/20/22 16:28 Blood Pressure 151/75 H 12/20/22 16:28 Pulse Oximetry 95 12/20/22 16:28 Temperature 36.8 C 12/20/22 16:28 Temperature Source Skin 12/20/22 16:28 Pulse 64 12/20/22 16:28 Respiratory Rate 30 H 12/20/22 17:44 Respiratory Effort Normal 12/20/22 17:44 Respiratory Depth Normal 12/20/22 17:44 Respiratory Pattern Normal 12/20/22 17:44 Blood Pressure 151/75 H 12/20/22 16:28 Blood Pressure Position Sitting 12/20/22 16:28 Pulse Oximetry 95 12/20/22 16:28 Oxygen Delivery Method Room Air 12/20/22 16:28 Oxygen Flow Rate 0 12/20/22 16:28 Lab/Test Results Lab/Test Results: Laboratory Tests Range/Units 12/20/22 21:41 Troponin I Cancelled
[2022-12-20 19:03] LABS: Abs Immature Grans 0.03 10^3/uL (0.0-0.06); Absolute Basophil Count 0.07 10^3/uL (0.0-0.2); Absolute Eosinophil Count 0.08 10^3/uL (0.0-0.7); Absolute Lymphocyte Count 1.09 10^3/uL (1.2-3.4); Absolute Monocyte Count 0.48 10^3/uL (0.1-0.8); Absolute Neutrophil Count 4.43 10^3/uL (1.2-6.7); Basophils % 1.1; Eosinophils % 1.3; HCT 46.8 % (40.0-50.0); HGB 16.5 g/dL (13.5-17.5); Immature Grans % 0.5; Lymphocytes % 17.6; MCH 29.8 pg (27.0-33.0); MCHC 35.3 % (32.0-36.0); MCV 85 fL (80-95); MPV 10.1 fL (8.0-11.0); Monocytes % 7.8; Neutrophils % 71.7; Platelet Count 149 10^3/uL (130-400); RBC 5.54 10^6/uL (4.36-5.78); RDW-SD 39.8 fL; WBC 6.18 10^3/uL (4.4-10.8)
[2022-12-20 19:16] LABS: ALT 46 U/L (16-63); AST 30 U/L (15-37); Albumin 4.1 g/dL (3.4-5.0); Alkaline Phosphatase 83 U/L (46-116); Anion Gap 12.4 mmol/L (3-11); BUN 32 mg/dL (7-18); Bilirubin, Total 0.7 mg/dL (0.2-1.0); CO2 23.6 mmol/L (21.0-32.0); CREATININE 1.2 mg/dL (0.70-1.30); Calcium 9.7 mg/dL (8.5-10.1); Chloride 102 mmol/L (98-107); Estimated GFR 67.11 (mL/min/1.73m2); Glucose 246 mg/dL (74-106); Magnesium 2.1 mg/dL (1.8-2.4); Potassium 3.8 mmol/L (3.5-5.1); Sodium 138 mmol/L (136-145); Total Protein 8.2 g/dL (6.4-8.2)
[2022-12-20 19:27] LABS: TSH 0.76 uIU/mL (0.36-3.74); Troponin I < 50 ng/L (<or=60)
[2022-12-20 21:06] LABS: INR 2.4 (0.9-1.1)
== END 2022-12-20 20:59 | disposition home or self-care (01) ==
PROVIDERS: Emergency Provider Emergency Medicine; PCP Family Medicine
DX: R42 Dizziness and giddiness (principal); R11.0 Nausea; E11.9 Type 2 diabetes mellitus without complications; I47.20 Ventricular tachycardia, unspecified; Z95.2 Presence of prosthetic heart valve; Z95.810 Presence of automatic (implantable) cardiac defibrillator; Z79.4 Long term (current) use of insulin; Z87.891 Personal history of nicotine dependence
CPT/HCPCS: 80053; 82962; 93005; 99283; 83735; 84443; 84484; 85025; 85610; 93010

== ENCOUNTER → 2023-03-20 01:16 | Outpatient (CLI) | payer BC, SELFPAY | PROVIDERS: PCP Family Medicine; Visit Provider Family Medicine | DX: I42.9 Cardiomyopathy, unspecified (principal) | CPT/HCPCS: 93306 ==

== ENCOUNTER 2023-04-20 14:44 | Outpatient (REF) | payer BC, SELFPAY ==
[2023-04-20 15:14] LABS: Abs Immature Grans 0.01 10^3/uL (0.0-0.06); Absolute Basophil Count 0.05 10^3/uL (0.0-0.2); Absolute Eosinophil Count 0.14 10^3/uL (0.0-0.7); Absolute Lymphocyte Count 1.53 10^3/uL (1.2-3.4); Absolute Monocyte Count 0.57 10^3/uL (0.1-0.8); Absolute Neutrophil Count 3.85 10^3/uL (1.2-6.7); Basophils % 0.8; Eosinophils % 2.3; HGB 14.8 g/dL (13.5-17.5); Immature Grans % 0.2; Lymphocytes % 24.9; MCH 29.1 pg (27.0-33.0); MCHC 33.6 % (32.0-36.0); MCV 86 fL (80-95); MPV 10.2 fL (8.0-11.0); Monocytes % 9.3; Neutrophils % 62.5; Platelet Count 146 10^3/uL (130-400); RBC 5.09 10^6/uL (4.36-5.78); RDW 13.2 % (11.8-14.1); RDW-SD 40.9 fL; WBC 6.15 10^3/uL (4.4-10.8)
[2023-04-20 15:38] LABS: ALT 34 U/L (16-63); AST 22 U/L (15-37); Albumin 3.8 g/dL (3.4-5.0); Alkaline Phosphatase 90 U/L (46-116); Anion Gap 13.4 mmol/L (3-11); BUN 33 mg/dL (7-18); Bilirubin, Total 0.6 mg/dL (0.2-1.0); CO2 22.6 mmol/L (21.0-32.0); CREATININE 1.4 mg/dL (0.70-1.30); Calcium 9.3 mg/dL (8.5-10.1); Chloride 106 mmol/L (98-107); Estimated GFR 55.43 (mL/min/1.73m2); Glucose 258 mg/dL (74-106); NT-proBNP 766 pg/mL (<300); Potassium 4.5 mmol/L (3.5-5.1); Sodium 142 mmol/L (136-145); TSH (W/Ref FT4) 0.89 uIU/mL (0.36-3.74); Total Protein 7.4 g/dL (6.4-8.2)
[2023-04-20 15:44] LABS: Hemoglobin A1C 7.7 % (<5.7)
== END 2023-04-20 14:45 | disposition home or self-care (01) ==
LOC: NCHCN 14:44
PROVIDERS: PCP Family Medicine; Visit Provider Family Medicine
DX: Z01.818 Encounter for other preprocedural examination (principal)
CPT/HCPCS: 80053; 83036; 83880; 84443; 85025

== ENCOUNTER 2023-06-12 11:58 | Outpatient (REF) | payer BC, SELFPAY ==
[2023-06-12 16:01] LABS: Anion Gap 13.7 mmol/L (3-11); BUN 44 mg/dL (7-18); CO2 21.3 mmol/L (21.0-32.0); CREATININE 1.4 mg/dL (0.70-1.30); Calcium 9.5 mg/dL (8.5-10.1); Chloride 105 mmol/L (98-107); Estimated GFR 55.43 (mL/min/1.73m2); Glucose 110 mg/dL (74-106); Potassium 4.1 mmol/L (3.5-5.1); Sodium 140 mmol/L (136-145)
[2023-06-12 16:32] LABS: Hemoglobin A1C 7.2 % (<5.7)
== END 2023-06-12 11:59 | disposition home or self-care (01) ==
LOC: NCHCN 11:58
PROVIDERS: PCP Family Medicine; Visit Provider Family Medicine
DX: E11.9 Type 2 diabetes mellitus without complications (principal)
CPT/HCPCS: 80048; 83036

== ENCOUNTER 2023-09-21 22:31 | Outpatient (REF) | payer BC, SELFPAY ==
[2023-09-21 14:44] LABS: Anion Gap 11.4 mmol/L (3-11); BUN 26 mg/dL (7-18); CO2 22.6 mmol/L (21.0-32.0); CREATININE 1.2 mg/dL (0.70-1.30); Calcium 8.7 mg/dL (8.5-10.1); Chloride 107 mmol/L (98-107); Glucose 166 mg/dL (74-106); Potassium 4.4 mmol/L (3.5-5.1); Sodium 141 mmol/L (136-145)
[2023-09-21 15:13] LABS: Hemoglobin A1C 7.1 % (<5.7)
== END 2023-09-21 22:32 | disposition home or self-care (01) ==
LOC: NCHCN 22:31
PROVIDERS: PCP Family Medicine; Visit Provider Family Medicine
DX: E11.65 Type 2 diabetes mellitus with hyperglycemia (principal)
CPT/HCPCS: 80048; 83036

== ENCOUNTER 2024-01-23 08:57 | Outpatient (CLI) | payer BC, SELFPAY | END 2024-01-23 08:58 | disposition home or self-care (01) | LOC: LBO 08:57 | PROVIDERS: PCP Family Medicine; Visit Provider Internal Medicine Infectious Disease | DX: R79.81 Abnormal blood-gas level (principal); B95.61 Methicillin susceptible Staphylococcus aureus infection as the cause of diseases classified elsewhere | CPT/HCPCS: 36415; 87040 ==

== ENCOUNTER 2024-02-05 09:01 | Outpatient (REF) | payer BC, SELFPAY ==
[2024-02-05 16:36] LABS: ESR 29 mm/hr (0-20)
[2024-02-05 17:00] LABS: Anion Gap 11.4 mmol/L (3-11); BUN 25 mg/dL (7-18); CO2 22.6 mmol/L (21.0-32.0); CREATININE 1.2 mg/dL (0.70-1.30); Calcium 9.1 mg/dL (8.5-10.1); Chloride 106 mmol/L (98-107); Estimated GFR 66.28 (mL/min/1.73m2); Glucose 276 mg/dL (74-106); Potassium 4.3 mmol/L (3.5-5.1); Sodium 140 mmol/L (136-145); TSH 0.55 uIU/mL (0.36-3.74)
[2024-02-05 17:12] LABS: C-Reactive Protein < 0.50 mg/dL (<or=0.5)
== END 2024-02-05 09:02 | disposition home or self-care (01) ==
LOC: NCHCN 09:01
PROVIDERS: PCP Family Medicine; Visit Provider Family Medicine
DX: I60.9 Nontraumatic subarachnoid hemorrhage, unspecified (principal)
CPT/HCPCS: 80048; 85652; 84443; 86140

== ENCOUNTER 2024-06-09 15:18 | Outpatient (REF) | payer BC, SELFPAY ==
[2024-06-09 15:57] LABS: HCT 44.4 % (40.0-50.0); HGB 15.2 g/dL (13.5-17.5)
[2024-06-09 16:54] LABS: ALT 29 U/L (16-63); AST 23 U/L (15-37); Albumin 3.7 g/dL (3.4-5.0); Alkaline Phosphatase 91 U/L (46-116); Anion Gap 10.5 mmol/L (3-11); BUN 28 mg/dL (7-18); Bilirubin, Total 0.5 mg/dL (0.2-1.0); CO2 23.5 mmol/L (21.0-32.0); CREATININE 1.2 mg/dL (0.70-1.30); Calcium 9.3 mg/dL (8.5-10.1); Chloride 110 mmol/L (98-107); Estimated GFR 66.28 (mL/min/1.73m2); Glucose 117 mg/dL (74-106); Magnesium 1.9 mg/dL; Potassium 4.2 mmol/L (3.5-5.1); Sodium 144 mmol/L (136-145); TSH (W/Ref FT4) 0.17 uIU/mL (0.36-3.74); Total Protein 7.3 g/dL (6.4-8.2)
[2024-06-09 16:59] LABS: Hemoglobin A1C 6.9 % (<5.7)
[2024-06-09 22:24] LABS: PSA, Screening 0.7 ng/mL (<=4.5)
[2024-06-10 11:45] LABS: T4, Free 2.3 ng/dL (0.8-2.2)
== END 2024-06-09 15:19 | disposition home or self-care (01) ==
LOC: NCHCN 15:18
PROVIDERS: PCP Family Medicine; Visit Provider Family Medicine
DX: E11.9 Type 2 diabetes mellitus without complications (principal); E03.9 Hypothyroidism, unspecified; Z00.00 Encounter for general adult medical examination without abnormal findings; Z12.5 Encounter for screening for malignant neoplasm of prostate
CPT/HCPCS: 80053; 84153; 83036; 83735; 84439; 84443; 85014; 85018

== ENCOUNTER 2024-06-10 15:12 | Emergency (ER) | payer BC, SELFPAY ==
[2024-06-10 15:15] VITALS: BP 181/97; PULSE 95; RESP 16; TEMP 36.9; O2SAT 94
[2024-06-10 15:21] VITALS: BP 181/97; PULSE 95; RESP 16; TEMP 36.9; O2SAT 94
--- NOTE | 2024-06-10 15:30 | DI.CT_ITS ---
Exam(s) CT HEAD WO EXAM: CT HEAD WO CLINICAL HISTORY: dizzy. TECHNIQUE: Imaging Protocol: Axial computed tomography images with coronal and sagittal reformatted images were created and reviewed COMPARISON: CT CT HEAD WO CONTRAST from 01/16/[address] HEAD WO from 03/05/2024 FINDINGS: The previously described left occipital skull base fracture is again noted and appears unchanged. Is no further extension of the fracture line and there are no new fracture lines evident in the skull. There is no fluid in the visualized paranasal sinuses. 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 Also again noted is hypodensity in the right frontal lobe consistent with prior infarct at this level, unchanged. Also again noted is an abnormal area of focal hypodensity in the right occipital parietal region just posterior to the splenium of the corpus callosum. There are no new infarcts kyler dent. There is a small benign calcification in left side of the brain posterior left frontal lobe ag ain noted. With respect to the previously described right-sided subdural hematoma, it has not increased in size and does not exhibit hyperdense content to suggest rebleeding. Minimal mass effect. IMPRESSION: Multilevel findings as above but unchanged from previous CT scan of 03/05/2024 Report called by myself to ER physician 06/10/2024 4:38 p.m. RADIATION DOSE DELIVERED: 866.43mGy.cm Total DLP DATA REPOSITORY: All CT scans at this facility are submitted to the National Radiology Data Registry (NRDR) Dose Index Registry (DIR) with the [employer] (ACR). RADIATION OPTIMIZATION: All CT scans at this facility use at least one of these dose optimization te chniques: automated exposure control; mA and/or kV adjustment per patient size (includes targeted exa ms where dose is matched to clinical indication); or iterative reconstruction.
--- NOTE | 2024-06-10 15:48 | ED.GENADUL_ITS ---
Discharge Plan Disposition Patient Disposition: Home Condition: Stable Discharge Details Clinical Impression: Dizziness Primary Care Provider: Yohana Prado V ED Provider: Karuna Watkins Home Meds and New Rx's Prescriptions: No Action atorvastatin 20 mg Tablet 20 mg PO HS lidocaine 5 % Ointment 1 applic TOPICAL QID PRN Taltz Autoinjector 80 mg/mL Auto-Injector 80 mg SUBCUT DIRECTED Rx Instructions: one injection from auto injector Q1carjl metformin [Glucophage] 1,000 MG tablet 500 mg PO BID metoprolol tartrate 25 MG tablet 25 mg PO BID furosemide 40 mg Tablet See Rx Instructions .ROUTE .COMPLEX Qty: 35 0RF Rx Instructions: 40 mg PO BID at 8 am and 2 pm x 5 days, then 40 mg PO daily. spironolactone 25 mg Tablet 25 mg PO DAILY Qty: 30 0RF sacubitril-valsartan [Entresto] 24-26 mg Tablet 1 ea PO BID Qty: 60 0RF enoxaparin 120 mg/0.8 mL Syringe 120 mg subcut Q12H Qty: 8 0RF warfarin [Jantoven] 5 mg Tablet 15 mg PO QPM Qty: 90 0RF magnesium oxide 400 mg magnesium capsule 400 mg PO DAILY Qty: 10 0RF levothyroxine 50 mcg tablet 50 mcg PO DAILY Qty: 30 0RF Patient Comments: TAKE 1/2 TABLET BY MOUTH ONCE A DAY WITH 200MCG TABLET Rx Instructions: for a total dose of 250 mcg daily levothyroxine [Synthroid] 200 MCG tablet 225 mcg PO DAILY Rx Instructions: Take in addition to the 50 mcg tablet for a total dose of 250 mcg daily. insulin degludec [Tresiba FlexTouch U-100] 100 unit/mL (3 mL) insulin pen 23 unit SUBCUT BID Patient Comments: INJECT 40 UNITS UNDER THE SKIN TWO TIMES A DAY insulin aspart U-100 [Novolog PenFill U-100 Insulin] 100 UNIT/ML cartridge 100 units SQ PRN PRN Patient Comments: sliding scale Levemir FlexTouch U100 Insulin 300 UNITS/3 ML insulin pen 40 unit SQ BID meclizine 25 mg tablet 25 mg PO BID PRN (Reason: dizziness) Qty: 14 0RF Rx Instructions: Take 1 tablet 2-3 times a day as needed for dizziness Discharge Instructions Additional Instructions: Your dizziness symptoms are likely vertigo. Take the meclizine as needed to see if this helps. If your dizziness is persistent, return to the emergency department for reevaluation Your head CT today does not demonstrate any changes or worsening from prior or new abnormalities. Follow-up with your neurologist as needed. HPI General Date/Time Provider Initiated Documentation: 06/10/24 15:24 . Limitations to Documentation: no limitations . Information obtained by: patient, family and old records reviewed . HPI Narrative: 68-year-old gentleman with past medical history of CHF, JULIANE, vertigo and TBI presents for evaluation of dizziness. reports that they are followed by neurology at [facility] after a TBI last year. She contacted them regarding dizziness that he has been experiencing. He had 2 episodes of dizziness once last week and once yesterday. Each episode lasted for about an hour and was associated with vomiting. Yesterday he was working while this occurred and he went home and rested he did not take any meclizine. He reports when he woke up from his nap his symptoms resolved and he did not have any symptoms recur since that time. says that the neurologist return to their phone call today and advised that they get a head CT to rule out any intracranial bleeding because he is going on a trip next week. Related Data Home Medications ?Medication ?Instructions ?Recorded ?Confirmed metformin 1,000 mg tablet 500 mg PO BID 11/11/13 06/10/24 (Glucophage) metoprolol tartrate 25 mg tablet 25 mg PO BID 11/11/13 06/10/24 insulin aspart U-100 100 unit/mL 100 units SQ PRN PRN 04/29/17 06/10/24 subcutaneous cartridge (Novolog PenFill U-100 Insulin aspart) insulin detemir U-100 100 unit/mL 40 unit SQ BID 04/29/17 12/20/22 (3 mL) subcutaneous pen (Levemir FlexTouch U-100 Insulin) atorvastatin 20 mg tablet 20 mg PO HS 05/19/19 06/10/24 ixekizumab 80 mg/mL subcutaneous 80 mg subcut DIRECTED 05/19/19 06/10/24 auto-injector (Taltz Autoinjector) lidocaine 5 % topical ointment 1 applic topical QID PRN 05/19/19 06/10/24 meclizine 25 mg tablet 25 mg PO BID PRN dizziness #14 tabs 06/09/22 06/10/24 enoxaparin 120 mg/0.8 mL 120 mg (0.8 mL) subcut Q12H #8 mL 06/14/22 06/10/24 subcutaneous syringe furosemide 40 mg tablet See Rx Instructions .Route 06/14/22 06/10/24 .COMPLEX #35 tabs levothyroxine 50 mcg tablet 50 mcg PO DAILY #30 tabs 06/14/22 06/10/24 magnesium oxide 400 mg PO DAILY #10 caps 06/14/22 06/10/24 sacubitril 24 mg-valsartan 26 mg 1 ea PO BID #60 tabs 06/14/22 06/10/24 tablet (Entresto) spironolactone 25 mg tablet 25 mg PO DAILY #30 tabs 06/14/22 06/10/24 warfarin 5 mg tablet (Jantoven) 15 mg (3 x 5 mg) PO QPM #90 tabs 06/14/22 06/10/24 levothyroxine 200 mcg tablet 225 mcg PO DAILY 12/20/22 06/10/24 (Synthroid) insulin degludec 100 unit/mL (3 23 unit subcut BID 06/10/24 06/10/24 mL) subcutaneous pen (Tresiba FlexTouch U-100 insulin) Previous Rx's ?Medication ?Instructions ?Recorded meclizine 25 mg tablet 25 mg PO BID PRN dizziness #14 tabs 06/09/22 enoxaparin 120 mg/0.8 mL 120 mg (0.8 mL) subcut Q12H #8 mL 06/14/22 subcutaneous syringe furosemide 40 mg tablet See Rx Instructions .Route 06/14/22 .COMPLEX #35 tabs levothyroxine 50 mcg tablet 50 mcg PO DAILY #30 tabs 06/14/22 magnesium oxide 400 mg PO DAILY #10 caps 06/14/22 sacubitril 24 mg-valsartan 26 mg 1 ea PO BID #60 tabs 06/14/22 tablet (Entresto) spironolactone 25 mg tablet 25 mg PO DAILY #30 tabs 06/14/22 warfarin 5 mg tablet (Jantoven) 15 mg (3 x 5 mg) PO QPM #90 tabs 06/14/22 Allergies Allergy/AdvReac Type Severity Reaction Status Date / Time lisinopril Allergy Severe cough Verified 06/10/24 15:24 Penicillins Allergy Severe Swelling/Ed Verified 06/10/24 15:24 omar cyclosporine Allergy Mild SOB Verified 06/10/24 15:24 infliximab (From Remicade) AdvReac Severe Gave him Verified 06/10/24 15:24 Lopus adalimumab (From Humira) AdvReac Intermediate Skin Rash Verified 06/10/24 15:24 clindamycin AdvReac Intermediate Skin Rash Verified 06/10/24 15:24 ustekinumab (From Stelara) AdvReac Intermediate Skin Rash Verified 06/10/24 15:24 General Stated Complaint: GenMedical LEDA: 3 Exam Narrative Exam Narrative: Review of Systems: All systems reviewed & are unremarkable except as noted in HPI and below Well-developed, no acute distress NCAT PERRL, normal conjunctiva TMs without effusion or bulging RRR Unlabored respiratory effort no focal neurologic deficits, CN intact, no dysmetria, normal gait, full strength and sensation intact Appropriate mood and affect Course Vital Signs Vital signs: Vital Signs Temperature 36.9 C 06/10/24 15:15 Pulse 95 H 06/10/24 15:15 Respiratory Rate 16 06/10/24 15:15 Blood Pressure 181/97 H 06/10/24 15:15 Pulse Oximetry 94 06/10/24 15:15 Temperature 36.9 C 06/10/24 15:21 Temperature Source Oral 06/10/24 15:21 Pulse 95 H 06/10/24 15:21 Respiratory Rate 16 06/10/24 15:21 Blood Pressure 181/97 H 06/10/24 15:21 Blood Pressure Position Sitting 06/10/24 15:21 Pulse Oximetry 94 06/10/24 15:21 Oxygen Delivery Method Room Air 06/10/24 15:21 Oxygen Flow Rate 0 06/10/24 15:15 Pain Level 0 06/10/24 15:15 Medical Decision Making Emergent evaluation of dizziness that occurred yesterday. No dizziness or symptoms at the time of presentation to the emergency department. Encouraged to come here by neurology at [facility] for CT imaging. The patient has a nonfocal neurologic exam. I have a low suspicion for an acute intracranial process as the symptoms seem very consistent with vertigo which she has been diagnosed with previously. He does have meclizine at home but does not think that he took any yesterday. The patient is on warfarin. Plan for head CT as requested. Head CT results discussed with radiologist. There are several abnormalities that are consistent with prior, unchanged and not worsened. There are no acute abnormalities. Patient remains asymptomatic and at this time is discharged in good condition. Recommend taking the meclizine as needed for dizziness and following up with neurology with any ongoing concerns. Quality:SDOH Health Related Social Needs: No Data to Display PFSH All Active Problems (Updated 06/10/24 @ 16:44 by Karuna Watkins MD) Dizziness (Acute) Hypoxia (Acute) Nonsustained paroxysmal ventricular tachycardia (Acute) Sinus pause (Acute) Elevated troponin (Acute) Hypomagnesemia (Acute) Subtherapeutic international normalized ratio (INR) (Acute) Obstructive sleep apnea (Chronic) Pulmonary hypertension (Acute) Biventricular heart failure with reduced left ventricular function (Acute) CHF (congestive heart failure) (Chronic) Hand laceration (Acute) Multiple lacerations (Acute) Acute exacerbation of CHF (congestive heart failure) (Acute) Medical History Aortic stenosis Bilateral shoulder pain Cervicalgia Daytime somnolence Diabetes mellitus Elbow pain, right Endocarditis Fatty liver History of anticoagulant therapy Hx of sepsis Hyperlipidemia Hypothyroid Lupus transient, from Remicaide Murmur Paresthesia of both hands Psoriasis Radial nerve dysfunction Renal insufficiency Sleepiness Surgical History H/O aortic valve replacement Social History Smoking/Tobacco Use Status: Former Tobacco Use Smoking risk assessment performed?: Yes Alcohol Intake: never Drug use: Never Substance use type: does not use Household members: spouse Housing: house Number of Children: 2 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
[2024-06-10 17:16] VITALS: BP 164/74; PULSE 76; RESP 18; O2SAT 96
== END 2024-06-10 17:17 | disposition home or self-care (01) ==
PROVIDERS: Emergency Provider Emergency Medicine; PCP Family Medicine
DX: R42 Dizziness and giddiness (principal); E78.5 Hyperlipidemia, unspecified; E03.9 Hypothyroidism, unspecified; E11.9 Type 2 diabetes mellitus without complications; Z87.820 Personal history of traumatic brain injury; Z95.2 Presence of prosthetic heart valve; Z79.84 Long term (current) use of oral hypoglycemic drugs; Z79.01 Long term (current) use of anticoagulants; Z79.4 Long term (current) use of insulin; Z87.891 Personal history of nicotine dependence
CPT/HCPCS: 99284; 70450

== ENCOUNTER 2024-06-23 15:44 | Outpatient (REF) | payer BC, SELFPAY ==
[2024-06-24 18:10] LABS: T4, Free 2.3 ng/dL (0.8-2.2)
== END 2024-06-23 15:45 | disposition home or self-care (01) ==
LOC: NCHCN 15:44
PROVIDERS: PCP Family Medicine; Visit Provider Family Medicine
DX: E03.9 Hypothyroidism, unspecified (principal)
CPT/HCPCS: 84439

== ENCOUNTER 2024-08-19 08:47 | Outpatient (REF) | payer BC, SELFPAY ==
[2024-08-19 16:49] LABS: Anion Gap 14.4 mmol/L (3-11); BUN 27 mg/dL (7-18); CO2 22.6 mmol/L (21.0-32.0); CREATININE 1.3 mg/dL (0.70-1.30); Calcium 9.3 mg/dL (8.5-10.1); Chloride 104 mmol/L (98-107); Estimated GFR 60.21 (mL/min/1.73m2); Glucose 105 mg/dL (74-106); Sodium 141 mmol/L (136-145)
[2024-08-20 11:55] LABS: FREE T4 1.44 ng/dL (0.76-1.46)
== END 2024-08-19 08:48 | disposition home or self-care (01) ==
LOC: NCHCN 08:47
PROVIDERS: PCP Family Medicine; Visit Provider Family Medicine
DX: E11.9 Type 2 diabetes mellitus without complications (principal); E03.9 Hypothyroidism, unspecified
CPT/HCPCS: 80048; 84439; 84443

== ENCOUNTER 2025-01-09 07:25 | Inpatient (IN) | payer BC, SELFPAY ==
[2025-01-09] VITALS (33 sets, daily range): BP systolic 95–136; BP diastolic 43–88; PULSE 64–88; RESP 15–28; TEMP 36.6–37; O2SAT 87–96
--- NOTE | 2025-01-09 | DI.US_ITS ---
APPROVED REPORT EXAM: Comprehensive 2D, Doppler, and color-flow Echocardiogram Patient Location: Out-Patient [facility] Specialist: Vi Lozano RDCS (AE) Indications: HF exacerbation Other Information Study Quality: Fair. Technically limited study due to body habitus, exam done bedside. Conclusion Normal left ventricular wall thickness and chamber size. Ejection fraction is 35%. There is global hypokinesis Right ventricle is not well-visualized Mildly dilated left atrium. Normal right atrial size Device lead noted in the right heart There is a mechanical aortic valve prosthesis with a mean gradient of 11 mmHg Mitral annular calcification, thickened mitral leaflets. There is mild aortic stenosis with a mean gradient across the valve of 2 to 3 mmHg Trace to mild mitral and tricuspid regurgitation Estimated right ventricular systolic pressure is 30 mmHg Results are similar to an echocardiogram from 2022 Wall motion Left Ventricle The left ventricle is normal size. Left ventricular systolic function is moderate to severely decreased. There is normal left ventricular wall thickness. There is global hypokinesis of the left ventricle. There is no ventricular septal defect visualized. LVEF is 35%. Right Ventricle Right ventricle is not well visualized. Right ventricular systolic function could not be assessed. Pacemaker lead is present in the right ventricle. Atria Left atrium is mildly dilated. The right atrium size is normal. The interatrial septum is intact with no evidence for an atrial septal defect. Aortic Valve Mean gradient is 11 mmHg No aortic regurgitation is present. Mechanical aortic valve is present. Mitral Valve Severe mitral annular calcification. Mitral valve leaflets are moderately thickened. Mitral valve leaflets have restricted excursion. Mild to moderate mitral stenosis. Mean gradient is 2 to 3 mmHg Trace to mild mitral regurgitation. Tricuspid Valve The tricuspid valve is normal in structure. There is no tricuspid valve stenosis. Trace tricuspid regurgitation. The RVSP is 29.9 mmHg. Pulmonic Valve The pulmonary valve is normal in structure. Subcostal imaging. There is no pulmonic valvular stenosis. There is no pulmonic valvular regurgitation. Great Vessels The aortic root is normal in size. Ascending aorta is not well visualized. IVC is normal in size and collapses >50% with inspiration. Pericardium There is no pericardial effusion. 2D Dimensions IVSD d PLAX 0.80 cm M: 0.6-1.2 Ao Root d 3.25 cm M: 3.1 - 3.7 LVPW d PLAX 0.83 cm M: 0.6 - 1.2 LVID d PLAX 5.30 cm M: 4.2 - 5.8 LVDs 4.50 cm M: 2.5 - 4.0 LV EF Teichholz 31.6 % FS 15.04 % LV EDV (Teich) 132.4 mL LV ESV (Teich) 90.6 mL Auto EF LV EDV A4C 137.9 mL LV EDV A2C 131.5 mL LV EDV BP 134.6 mL LV ESV A4C 90.2 mL LV ESV A2C 85.1 mL LV ESV BP 88.4 mL LVEF(%) A4C 34.6 % LVEF(%) A2C 35.3 % LVEF(%) BP 34.3 % LV SV A4C 47.7 ml LV SV A2C 46.4 ml LV SV BP 46.2 ml LV CO A4C 3.1 L/min LV CO A2C 3.1 L/min LV CO BP 3.1 L/min HR A4C 65.46 BPM HR A2C 67.55 BPM LV EDV Index (BP) LA Volume LA Length A4C 6.3 cm LA Length A2C 6.6 cm LA Area A4C s 26.72 cm2 LA Area A2C s 24.99 cm2 LA Vol A4C A-L 96.57 mL LA Vol A2C A-L 80.58 mL LA Vol Biplane A-L 90.3 mL LA Vol/BSA A4C A-L LA Vol/BSA A2C A-L LA Vol/BSA BP A-L 39.6 mL/m2 LA Vol A4C MOD 90.6 mL LA Vol A2C MOD 75.8 mL LA Vol BP MOD 84.7 mL LV Diastology MV E' medial 0.057 (>0.07 m/s) MV E Vmax 1.11 (0.4-1.3 m/s) MV E/E' MED 19.37 (<14) MV A Vmax 1.20 (0.4-1.3 m/s) E/A Ratio 0.9 Aortic Valve AoV Vmax 1.99 m/s LVOT Vmax 0.85 m/s AoV Peak Grad 15.8 mmHg LVOT Peak Grad 2.9 mmHg AoV Area (Vmax) 1.34 cm2 LVOT VTI 0.194 m AoV VTI 0.388 m LVOT Mean Grad 1.6 mmHg AoV Mean Jayesh. 1.57 m/s LVOT SV 60.82 mL AoV Mean Grad 10.5 mmHg LVOT Diam s 1.95 cm AoV Area (VTI) 1.57 cm2 AV Regurg Peak Gr. 15.76 mmHg Velocity Ratio 0.43 Mitral Valve MV DT 503 (160-240 msec) MV Vmax TIPS 1.21 m/s MV Mean Grad 2.5 (<2mmHg) MV VTI 0.416 m Pulmonary Valve PV Vmax 0.98 (0.5-1.5 m/s) RVOT Vmax 0.58 m/s PV Peak Grad 3.9 mmHg RVOT Peak Gr. 1.3 mmHg PV Mean Jayesh 0.55 m/s RVOT VTI 0.104 m PV Mean Grad 1.6 mmHg RVOT Mean Gr. 0.7 mmHg Tricuspid Valve RA Pressure 3.00 mmHg TR Vmax 2.59 m/s TR Peak Grad 26.8 mmHg RVSP (TR) 29.9 mmHg
--- NOTE | 2025-01-09 07:15 | RT.EKG_ITS ---
APPROVED REPORT Exam: Resting ECG Reason for Exam: dyspnea Patient Location: E HR:83 bpm ECG Measurements Heart Rate 83 AXIS WY 126 P 70 QRSd 160 QRS 251 QT 436 T 89 QTc 512 Conclusion Atrial-sensed ventricular-paced rhythm...ventricular pacing tracks p-waves Biventricular paced rhythm...non-simultaneous bi-vent pacing
--- NOTE | 2025-01-09 07:45 | DI.RAD_ITS ---
Exam(s) XR CHEST 2V PA LATERAL EXAM: XR CHEST 2V PA LATERAL CLINICAL HISTORY: cough, hypoxia TECHNIQUE: 2D digital imaging was performed of the chest. Two images were obtained. PA and lateral views were obtained. COMPARISON: CR RIGHT SHOULDER COMPLETE from 06/25/2017 CR XR CHEST 2V PA LATERAL from 06/09/[address] CHEST WO from 04/14/2024 FINDINGS: MEDIASTINUM: Normal. HEART: There is an aortic valve replacement. The cardiac pacing wires are stable in position. PULMONARY VASCULATURE: There may be mild pulmonary venous congestion. LUNGS: There are no focal consolidating infiltrates present. PLEURAL SPACE: No pleural effusion or pneumothorax. BONE:Within normal limits for the patient's age. OTHER FINDINGS:Normal. IMPRESSION: 1. Mild pulmonary venous congestion. 2. No focal consolidating infiltrates. DATA REPOSITORY: RADIATION DOSE DELIVERED:
[2025-01-09 08:13] LABS: BE (Venous) -5 mmol/L (-2-3); HCO3 (Venous) 20 mmol/L (23-28); O2 Sat (Venous) 89 %; TCO2 (Venous) 17 mmol/L (24-29); pCO2 (Venous) 32 mmHg (41-51); pO2 (Venous) 55 mmHg
[2025-01-09 08:14] LABS: Abs Immature Grans 0.05 10^3/uL (0.0-0.06); HCT 45.0 % (40.0-50.0); HGB 15.5 g/dL (13.5-17.5); Immature Grans % 0.5 %; MCH 28.9 pg (27.0-33.0); MCHC 34.4 % (32.0-36.0); MCV 84 fL (80-95); MPV 10.4 fL (8.0-11.0); Platelet Count 142 10^3/uL (130-400); RBC 5.37 10^6/uL (4.36-5.78); RDW 12.9 % (11.8-14.1); RDW-SD 39.1 fL; WBC 10.16 10^3/uL (4.4-10.8)
[2025-01-09 08:37] LABS: ALT 23 U/L (16-63); AST 17 U/L (15-37); Albumin 3.7 g/dL (3.4-5.0); Alkaline Phosphatase 90 U/L (46-116); Anion Gap 14.1 mmol/L (3-11); BUN 38 mg/dL (7-18); Bilirubin, Total 1.1 mg/dL (0.2-1.0); CO2 19.9 mmol/L (21.0-32.0); Calcium 9.1 mg/dL (8.5-10.1); Chloride 100 mmol/L (98-107); Estimated GFR 43.37 (mL/min/1.73m2); Glucose 161 mg/dL (74-106); Magnesium 2.2 mg/dL (1.8-2.4); NT-proBNP 1368 pg/mL (<300); Potassium 3.9 mmol/L (3.5-5.1); Sodium 134 mmol/L (136-145); Total Protein 8.0 g/dL (6.4-8.2); Troponin I 21 ng/L (<or=76)
--- NOTE | 2025-01-09 08:42 | W.ED.GENAD ---
Discharge Plan Disposition Patient Disposition: Admit to [facility] Condition: Serious Discharge Details Clinical Impression: Acute exacerbation of CHF (congestive heart failure), Hypoxia, Acute hyperglycemia, RITU (acute kidney injury), Pneumonia Primary Care Provider: Yohana Prado V ED Provider: Germán Mcleod Home Meds and New Rx's Prescriptions: No Action atorvastatin 20 mg Tablet 20 mg PO HS lidocaine 5 % Ointment 1 applic TOPICAL QID PRN Taltz Autoinjector 80 mg/mL Auto-Injector 80 mg SUBCUT DIRECTED Rx Instructions: one injection from auto injector [id number] metformin [Glucophage] 1,000 MG tablet 500 mg PO BID metoprolol tartrate 25 MG tablet 25 mg PO BID furosemide 40 mg Tablet See Rx Instructions .ROUTE .COMPLEX Qty: 35 0RF Rx Instructions: 40 mg PO BID at 8 am and 2 pm x 5 days, then 40 mg PO daily. spironolactone 25 mg Tablet 25 mg PO DAILY Qty: 30 0RF sacubitril-valsartan [Entresto] 24-26 mg Tablet 1 ea PO BID Qty: 60 0RF enoxaparin 120 mg/0.8 mL Syringe 120 mg subcut Q12H Qty: 8 0RF warfarin [Jantoven] 5 mg Tablet 15 mg PO QPM Qty: 90 0RF magnesium oxide 400 mg magnesium capsule 400 mg PO DAILY Qty: 10 0RF levothyroxine 50 mcg tablet 50 mcg PO DAILY Qty: 30 0RF Patient Comments: TAKE 1/2 TABLET BY MOUTH ONCE A DAY WITH 200MCG TABLET Rx Instructions: for a total dose of 250 mcg daily levothyroxine [Synthroid] 200 MCG tablet 225 mcg PO DAILY Rx Instructions: Take in addition to the 50 mcg tablet for a total dose of 250 mcg daily. insulin degludec [Tresiba FlexTouch U-100] 100 unit/mL (3 mL) insulin pen 23 unit SUBCUT BID Patient Comments: INJECT 40 UNITS UNDER THE SKIN TWO TIMES A DAY insulin aspart U-100 [Novolog PenFill U-100 Insulin] 100 UNIT/ML cartridge 100 units SQ PRN PRN Patient Comments: sliding scale Levemir FlexTouch U100 Insulin 300 UNITS/3 ML insulin pen 40 unit SQ BID meclizine 25 mg tablet 25 mg PO BID PRN (Reason: dizziness) Qty: 14 0RF Rx Instructions: Take 1 tablet 2-3 times a day as needed for dizziness HPI General Mode of arrival: ambulatory. Date/Time Provider Initiated Documentation: 01/09/25 07:37. Limitations to Documentation: no limitations. Information obtained by: patient. HPI Narrative: HISTORY OF PRESENT ILLNESS This is a 69-year-old male with a history of nonsustained ventricular tachycardia, obstructive sleep apnea, pulmonary hypertension, and congestive heart failure presenting with low oxygen levels and difficulty breathing. He is accompanied by his . He was referred to the emergency department by [facility] due to low oxygen levels and difficulty breathing. His oxygen saturation was recorded at 89% at [facility], a decrease from his usual range of 95% to 99%. He does not typically require supplemental oxygen. This morning, he visited [facility] for an INR check, where it was noted that he appeared winded and had a low oxygen level. He also reported a cough that began yesterday. His symptoms started on Sunday with a general feeling of malaise, which progressed to vomiting and diarrhea. He experienced shortness of breath and chest discomfort, described as a constant dull ache, particularly when coughing. He reports no swelling. His has been monitoring his temperature at home, which has remained normal, although he felt cold last night and warm today. He received both the COVID-19 and influenza vaccines a few months ago. He has a pacemaker defibrillator in place. He is currently on spironolactone, taking half a pill daily. Related Data Home Medications ?Medication ?Instructions ?Recorded ?Confirmed metformin 1,000 mg tablet 500 mg PO BID 11/11/13 06/10/24 (Glucophage) metoprolol tartrate 25 mg tablet 25 mg PO BID 11/11/13 06/10/24 insulin aspart U-100 100 unit/mL 100 units SQ PRN PRN 04/29/17 06/10/24 subcutaneous cartridge (Novolog PenFill U-100 Insulin aspart) insulin detemir U-100 100 unit/mL 40 unit SQ BID 04/29/17 12/20/22 (3 mL) subcutaneous pen (Levemir FlexTouch U-100 Insulin) atorvastatin 20 mg tablet 20 mg PO HS 05/19/19 06/10/24 ixekizumab 80 mg/mL subcutaneous 80 mg subcut DIRECTED 02/17/20 03/11/25 auto-injector (HearMeOuttz Autoinjector) lidocaine 5 % topical ointment 1 applic topical QID PRN 05/19/19 06/10/24 meclizine 25 mg tablet 25 mg PO BID PRN dizziness #14 tabs 06/09/22 06/10/24 enoxaparin 120 mg/0.8 mL 120 mg (0.8 mL) subcut Q12H #8 mL 06/14/22 06/10/24 subcutaneous syringe furosemide 40 mg tablet See Rx Instructions .Route 06/14/22 06/10/24 .COMPLEX #35 tabs levothyroxine 50 mcg tablet 50 mcg PO DAILY #30 tabs 06/14/22 06/10/24 magnesium oxide 400 mg PO DAILY #10 caps 06/14/22 06/10/24 sacubitril 24 mg-valsartan 26 mg 1 ea PO BID #60 tabs 06/14/22 06/10/24 tablet (Entresto) spironolactone 25 mg tablet 25 mg PO DAILY #30 tabs 06/14/22 06/10/24 warfarin 5 mg tablet (Jantoven) 15 mg (3 x 5 mg) PO QPM #90 tabs 06/14/22 06/10/24 levothyroxine 200 mcg tablet 225 mcg PO DAILY 12/20/22 06/10/24 (Synthroid) insulin degludec 100 unit/mL (3 23 unit subcut BID 06/10/24 06/10/24 mL) subcutaneous pen (Tresiba FlexTouch U-100 insulin) Previous Rx's ?Medication ?Instructions ?Recorded meclizine 25 mg tablet 25 mg PO BID PRN dizziness #14 tabs 06/09/22 enoxaparin 120 mg/0.8 mL 120 mg (0.8 mL) subcut Q12H #8 mL 06/14/22 subcutaneous syringe furosemide 40 mg tablet See Rx Instructions .Route 06/14/22 .COMPLEX #35 tabs levothyroxine 50 mcg tablet 50 mcg PO DAILY #30 tabs 06/14/22 magnesium oxide 400 mg PO DAILY #10 caps 06/14/22 sacubitril 24 mg-valsartan 26 mg 1 ea PO BID #60 tabs 06/14/22 tablet (Entresto) spironolactone 25 mg tablet 25 mg PO DAILY #30 tabs 06/14/22 warfarin 5 mg tablet (Jantoven) 15 mg (3 x 5 mg) PO QPM #90 tabs 06/14/22 Allergies Allergy/AdvReac Type Severity Reaction Status Date / Time lisinopril Allergy Severe cough Verified 01/09/25 07:39 Penicillins Allergy Severe Swelling/Ed Verified 01/09/25 07:39 omar cyclosporine Allergy Mild SOB Verified 01/09/25 07:39 infliximab (From Remicade) AdvReac Severe Gave him Verified 01/09/25 07:39 Lopus adalimumab (From Humira) AdvReac Intermediate Skin Rash Verified 01/09/25 07:39 clindamycin AdvReac Intermediate Skin Rash Verified 01/09/25 07:39 ustekinumab (From Stelara) AdvReac Intermediate Skin Rash Verified 01/09/25 07:39 General Stated Complaint: Chest Pain LEDA: 3 Review of Systems All systems reviewed & are unremarkable except as noted in HPI and below Constitutional Constitutional: Reports as per HPI Respiratory Respiratory: Reports as per HPI Exam Const General: cooperative and no acute distress HENMT Mouth: moist mucous membranes Eyes Conjunctivae: normal conjunctivae Sclera: normal sclerae Neck Neck: trachea midline and supple Resp Effort & Inspection: cough, labored and no respiratory distress Auscultation: rales on the left at the base and no rhonchi Cardio Rate: regular rate and not tachycardic Rhythm: regular rhythm GI Palpation: soft, not firm, no guarding, no masses, not rigid and nontender Skin General skin exam: no rashes or lesions noted Neuro General: patient alert, patient awake, patient oriented x3 and tone normal Extrem General: no calf tenderness and no edema Psych Appearance: grossly normal Mental Status: mental status grossly normal Course Vital Signs Vital signs: Vital Signs Temperature 36.7 C 01/09/25 07:30 Pulse 87 01/09/25 07:30 Respiratory Rate 22 01/09/25 07:30 Blood Pressure 127/71 01/09/25 07:30 Pulse Oximetry 91 L 01/09/25 07:30 Temperature 36.7 C 01/09/25 07:30 Temperature Source Oral 01/09/25 07:30 Pulse 64 01/09/25 08:31 Pulse 70 01/09/25 08:31 Respiratory Rate 17 01/09/25 08:31 Respiratory Effort Short of Breath, Incrsd Work of Breathing 01/09/25 08:02 Respiratory Depth Normal 01/09/25 08:02 Respiratory Pattern Tachypnea 01/09/25 08:02 Blood Pressure 102/53 L 01/09/25 08:31 Blood Pressure Mean 67 01/09/25 08:31 Blood Pressure Position Supine 01/09/25 07:30 Pulse Oximetry 94 01/09/25 08:31 Oxygen Delivery Method Room Air 01/09/25 08:00 Oxygen Flow Rate 0 01/09/25 08:00 Pain Level 7 01/09/25 08:02 Lab/Test Results Lab/Test Results: 01/09/25 08:02 Blood Blood Culture - Pending 01/09/25 08:00 Blood Blood Culture - Pending Laboratory Tests Range/Units 01/09/25 08:02 WBC (4.4-10.8) 10^3/uL 10.16 RBC (4.36-5.78) 10^6/uL 5.37 Hgb (13.5-17.5) g/dL 15.5 Hct (40.0-50.0) % 45.0 MCV (80-95) fL 84 MCH (27.0-33.0) pg 28.9 MCHC (32.0-36.0) % 34.4 RDW (11.8-14.1) % 12.9 Plt Count (130-400) 10^3/uL 142 MPV (8.0-11.0) fL 10.4 Immature Gran % % 0.5 Neutrophils % % 80.1 Lymphocytes % % 9.7 Monocytes % % 8.8 Eosinophils % % 0.5 Basophils % % 0.4 Nucleated RBC % (0.0-0.3) % 0.0 Absolute Neutrophils (1.2-6.7) 10^3/uL 8.14 H Absolute Lymphocytes (1.2-3.4) 10^3/uL 0.99 L Absolute Monocytes (0.1-0.8) 10^3/uL 0.89 H Absolute Eosinophils (0.0-0.7) 10^3/uL 0.05 Absolute Basophils (0.0-0.2) 10^3/uL 0.04 VBG pH (7.31-7.41) 7.40 VBG pCO2 (41-51) mmHg 32 L VBG pO2 mmHg 55 VBG HCO3 (23-28) mmol/L 20 L VBG Total CO2 (24-29) mmol/L 17 L VBG O2 Saturation % 89 VBG Base Excess (-2-3) mmol/L -5 L VBG Lactate (<or=2.0) mmol/L 1.3 Sodium (136-145) mmol/L 134 L Potassium (3.5-5.1) mmol/L 3.9 Chloride (98-107) mmol/L 100 Carbon Dioxide (21.0-32.0) mmol/L 19.9 L Anion Gap (3-11) mmol/L 14.1 H BUN (7-18) mg/dL 38 H Creatinine (0.70-1.30) mg/dL 1.7 H Est GFR (CKD-EPI 2020) (mL/min/1.73m2) 43.37 Glucose (74-106) mg/dL 161 H Calcium (8.5-10.1) mg/dL 9.1 Magnesium (1.8-2.4) mg/dL 2.2 Total Bilirubin (0.2-1.0) mg/dL 1.1 H AST (15-37) U/L 17 ALT (16-63) U/L 23 Alkaline Phosphatase (46-116) U/L 90 Troponin I (<or=76) ng/L 21 NT-Pro-B Natriuret Pep (<300) pg/mL 1368 H Total Protein (6.4-8.2) g/dL 8.0 Albumin (3.4-5.0) g/dL 3.7 Medical Decision Making ASSESSMENT AND PLAN Initial Assessment: 69-year-old male with cough and new hypoxia. Patient saturating in the upper 80s on room air. Patient has had some pleuritic chest discomfort. Differential Diagnosis: - Pneumonia - CHF ED Course: - EKG was reviewed and interpreted by me: Please report, a sensed V paced rhythm 83 bpm. Unlikely ACS but will check troponin. Initial troponin 21. Plan to trend. - Oxygen therapy via nasal cannula initiated - COVID-19 swab obtained - Flu swab obtained - Chest x-ray reviewed and interpreted by radiology: 1. Mild pulmonary venous congestion. 2. No focal consolidating infiltrates. - Labs reviewed: No leukocytosis but does have left shift. VBG with pH 7.4 normal. Patient has RITU with creatinine 1.7, increased from baseline. BUN also elevated. Patient is hyperglycemic with glucose 161. BNP is elevated at 1300. Given chest x-ray findings and elevated BNP, I am more concerned about potential acute CHF exacerbation. Patient will require hospitalization for diuresis in the setting of RITU. Will also cover for community-acquired pneumonia given productive cough. Clinical Impression: - Acute CHF exacerbation - Pneumonia - RITU - Hyperglycemia Disposition: - Admission - -I spoke with Dr. Acosta, discussed ED presentation and course, she will admit the patient. INR pending at time of admission. Delta troponin pending at time of admission. This document was written with the assistance of FLORY Young. The patient consented to its use. Lab Data Lab results reviewed: Yes I reviewed the patient's lab results. Labs: 01/09/25 08:02 Blood Blood Culture - Pending 01/09/25 08:00 Blood Blood Culture - Pending Laboratory Tests Range/Units 01/09/25 08:02 WBC (4.4-10.8) 10^3/uL 10.16 RBC (4.36-5.78) 10^6/uL 5.37 Hgb (13.5-17.5) g/dL 15.5 Hct (40.0-50.0) % 45.0 MCV (80-95) fL 84 MCH (27.0-33.0) pg 28.9 MCHC (32.0-36.0) % 34.4 RDW (11.8-14.1) % 12.9 Plt Count (130-400) 10^3/uL 142 MPV (8.0-11.0) fL 10.4 Immature Gran % % 0.5 Neutrophils % % 80.1 Lymphocytes % % 9.7 Monocytes % % 8.8 Eosinophils % % 0.5 Basophils % % 0.4 Nucleated RBC % (0.0-0.3) % 0.0 Absolute Neutrophils (1.2-6.7) 10^3/uL 8.14 H Absolute Lymphocytes (1.2-3.4) 10^3/uL 0.99 L Absolute Monocytes (0.1-0.8) 10^3/uL 0.89 H Absolute Eosinophils (0.0-0.7) 10^3/uL 0.05 Absolute Basophils (0.0-0.2) 10^3/uL 0.04 VBG pH (7.31-7.41) 7.40 VBG pCO2 (41-51) mmHg 32 L VBG pO2 mmHg 55 VBG HCO3 (23-28) mmol/L 20 L VBG Total CO2 (24-29) mmol/L 17 L VBG O2 Saturation % 89 VBG Base Excess (-2-3) mmol/L -5 L VBG Lactate (<or=2.0) mmol/L 1.3 Sodium (136-145) mmol/L 134 L Potassium (3.5-5.1) mmol/L 3.9 Chloride (98-107) mmol/L 100 Carbon Dioxide (21.0-32.0) mmol/L 19.9 L Anion Gap (3-11) mmol/L 14.1 H BUN (7-18) mg/dL 38 H Creatinine (0.70-1.30) mg/dL 1.7 H Est GFR (CKD-EPI 2020) (mL/min/1.73m2) 43.37 Glucose (74-106) mg/dL 161 H Calcium (8.5-10.1) mg/dL 9.1 Magnesium (1.8-2.4) mg/dL 2.2 Total Bilirubin (0.2-1.0) mg/dL 1.1 H AST (15-37) U/L 17 ALT (16-63) U/L 23 Alkaline Phosphatase (46-116) U/L 90 Troponin I (<or=76) ng/L 21 NT-Pro-B Natriuret Pep (<300) pg/mL 1368 H Total Protein (6.4-8.2) g/dL 8.0 Albumin (3.4-5.0) g/dL 3.7 COVID-19 Source Nasopharynx SARS-CoV-2 (PCR) (Negative) Negative Influenza Type A (PCR) (Negative) Negative Influenza Type B (PCR) (Negative) Negative RSV (PCR) (Negative) Negative PFSH All Active Problems (Updated 01/09/25 @ 09:26 by Germán Mcleod MD) Pneumonia (Acute) RITU (acute kidney injury) (Acute) Acute hyperglycemia (Acute) Hypoxia (Acute) Nonsustained paroxysmal ventricular tachycardia (Acute) Sinus pause (Acute) Elevated troponin (Acute) Hypomagnesemia (Acute) Subtherapeutic international normalized ratio (INR) (Acute) Obstructive sleep apnea (Chronic) Pulmonary hypertension (Acute) Biventricular heart failure with reduced left ventricular function (Acute) CHF (congestive heart failure) (Chronic) Hand laceration (Acute) Multiple lacerations (Acute) Acute exacerbation of CHF (congestive heart failure) (Acute) Medical History Fatty liver Lupus transient, from Remicaide Murmur Hyperlipidemia Psoriasis Hypothyroid Aortic stenosis History of anticoagulant therapy Renal insufficiency Paresthesia of both hands Elbow pain, right Diabetes mellitus Sleepiness Daytime somnolence Bilateral shoulder pain Radial nerve dysfunction Hx of sepsis Cervicalgia Endocarditis Surgical History H/O aortic valve replacement Social History Smoking/Tobacco Use Status: Former Tobacco Use Smoking risk assessment performed?: Yes Alcohol Intake: never Drug use: Never Substance use type: does not use Household members: spouse Housing: house Number of Children: 2 current occupation: [employer] What type of physical activity do you participate in: walking and independent ambulation Do you feel safe at home: Yes Do you feel safe in your relationship?: Yes
[2025-01-09 08:54] LABS: COVID-19 PCR Negative (Negative); RSV PCR Negative (Negative)
[2025-01-09] MEDS: DOXYCYCLINE 100 MG in Normal Saline 100 ML IVPB (09:07)
[2025-01-09] MEDS: cefTRIAXone 1 GM/50 ML BAG IVPB (09:07)
[2025-01-09 09:32] LABS: Troponin I 21 ng/L (<or=76)
[2025-01-09 09:41] LABS: INR 3.0 (0.9-1.1); Prothrombin Time 27.8 sec (9.1-11.1)
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
[2025-01-09 12:16] LABS: Troponin I 18 ng/L (<or=76)
--- NOTE | 2025-01-09 14:46 | IN_ITS ---
PT Notes Visit Reasons: respiratory failure Inpatient Physical Therapy Evaluation Date: 01/09/25 Referring Doctor: Dr. Acosta PT Orders: PT CONSULT: exacerbation of chronic condition Precautions: fall, standard Patient Profile/Admitting Diagnosis: Marquez is a 69 year old male referred for PT evaluation in acute care setting, where he is being managed for acute exacerbation of CHF (congestive heart failure), Hypoxia, Acute hyperglycemia, RITU (acute kidney injury), and Pneumonia. Social History/Home Situation: Marquez lives in a private home, where he is independent at baseline. Has family present during evaluation, who are supportive. Together they report that Marquez is independent at baseline. 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 Equipment Owned/DME: none Subjective: Marquez states that he's feeling better than he was this morning. He's agreeable to getting up to the chair. Objective: General Observation: Resting in bed with supplemental O2 via nasal cannula. Mental Status: A&Ox3 Pain: denies Vital Signs: Resting SaO2 100%; 95% post-transfer. ROM: Right Upper Extremity: WFL Left Upper Extremity: WFL Right Lower Extremity: WFL Left Lower Extremity: WFL Strength: Right Upper Extremity: Shoulder flexion 4/5. Biceps 4+/5. Triceps 4/5. Left Upper Extremity: Shoulder flexion 4/5. Biceps 4+/5. Triceps 4/5. Right Lower Extremity: Hip flexion 4+/5. Quads 4/5. Ankle DF 5/5. Left Lower Extremity: Hip flexion 4+/5. Quads 4/5. Ankle DF 5/5. Bed Mobility/Transfers: supine-sit: supervision sit-stand: supervision stand-sit: supervision Gait: Ambulates 6' with SBA, no assistive device. Demonstrates SHANE, but SaO2 remains 95% or above on supplemental O2 at 2LPM. Balance: Static Sitting: normal Dynamic Sitting: normal Static Standing: good Dynamic Standing: good 4-Position Balance Test: 2/4 Small KYM: 10 seconds Partial Tandem: 10 seconds Full Tandem: 3 seconds Single Leg Stance: 0 seconds Special Tests: Mobility Limitations [facility]ized [facility] Basic Mobility Inpatient Short Form: Raw Score: 21 CMS Score: 29% impairment Informed Consent/Education: Patient instructed in purpose of PT consult and plan of care. Treatment: Initial Evaluation (52342), including instruction in seated exercises for performance between PT sessions ankle pumps 10x LAQ 10x seated may 10x Assessment: Patient is a 69year old male referred to physical therapy services an acute care setting where he is being medically managed for acute exacerbation of CHF with pneumonia and respiratory failure. He demonstrates good strength and safety awareness, although with significant limitations in activity tolerance, with shortness of breath with short distance ambulation. He requires skilled PT intervention to maximize safety and activity tolerance and allow for safe transition back home once medically appropriate. He currently demonstrates the following impairment level findings: 1. SHANE with short distance ambulation 2. Decreased lower extremity strength 3. Balance impairments with 2/4 on 4 position balance test Impairments are contributing to the following functional limitations: 1. Decreased tolerance to short distance ambulation 2. Decreased balance with increased risk for falls Patient is assessed as Moderate 65721 complexity based on the following: History: As above Examination: As above Presentation: Evolving Decision Making: moderate complexity Goals: Goals X1 week 1. Supine-Sit : supervision 2. Sit-Supine : supervision 3. Sit-Stand : supervision 4. Stand-Sit : supervision 5. Bed-Chair : supervision 6. Chair-Bed : supervision 7. Gait : supervision x 100' Plan of Care/Treatment Plan: 1-2x/day, 7 days/week x 1 week. Plan of care has been reviewed with the TRACK WATCHMAN providing the service under Physical Therapy direction. Initiate Physical Therapy intervention for strengthening, bed mobility, transfers, gait, stairs, balance training, use of assistive device. DISCHARGE RECOMMENDATIONS: Home with outpatient PT TREATMENT CODE/TIME: [id number] (96502) [facility] All Active Problems (Updated 01/09/25 @ 10:36 by EKNDELL REN) Pneumonia (Acute) RITU (acute kidney injury) (Acute) Acute hyperglycemia (Acute) Hypoxia (Acute) Nonsustained paroxysmal ventricular tachycardia (Acute) Sinus pause (Acute) Elevated troponin (Acute) Hypomagnesemia (Acute) Subtherapeutic international normalized ratio (INR) (Acute) Obstructive sleep apnea (Chronic) Pulmonary hypertension (Acute) Biventricular heart failure with reduced left ventricular function (Acute) CHF (congestive heart failure) (Chronic) Hand laceration (Acute) Multiple lacerations (Acute) Acute exacerbation of CHF (congestive heart failure) (Acute) Medical History Fatty liver Lupus transient, from Remicaide Murmur Hyperlipidemia Psoriasis Hypothyroid Aortic stenosis History of anticoagulant therapy Renal insufficiency Paresthesia of both hands Elbow pain, right Diabetes mellitus Sleepiness Daytime somnolence Bilateral shoulder pain Radial nerve dysfunction Hx of sepsis Cervicalgia Endocarditis Surgical History H/O aortic valve replacement
[2025-01-09] MEDS: Furosemide 20 MG/2 ML VIAL IVP (15:54)
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
--- NOTE | 2025-01-09 16:28 | W.PC.ACHO ---
Registration Status: ADM IN Primary Language: Preferred Language: Telugu ED Information & Data Chief Complaint Chest Pain 01/09/25 08:49 Other Complaint SOB 01/09/25 07:30 Triage Note Pt reports feeling unwell 01/09/25 07:30 since Sunday. Reports CP, aching in center of chest, 10/09. Denies any documented fever, has felt warm. Had some nausea, vomiting and diarrhea. Has not been able to keep food down. Medical / Surgical History (Last Reviewed 01/09/25 @ 08:43 by Germán Mcleod MD) Fatty liver Lupus Murmur Hyperlipidemia Psoriasis Hypothyroid Aortic stenosis History of anticoagulant therapy Renal insufficiency Paresthesia of both hands Elbow pain, right Diabetes mellitus Sleepiness Daytime somnolence Bilateral shoulder pain Radial nerve dysfunction Hx of sepsis Cervicalgia Endocarditis (Last Reviewed 01/09/25 @ 08:43 by Germán Mcleod MD) H/O aortic valve replacement Most Recent Vital Signs Temperature 36.6 C 01/09/25 11:32 Temperature Source Temporal Artery Scan 01/09/25 10:40 Pulse 72 01/09/25 11:32 Pulse 64 01/09/25 09:50 Respiratory Rate 16 01/09/25 11:32 Respiratory Effort Normal, Non-Labored 01/09/25 11:32 Respiratory Depth Normal 01/09/25 11:32 Respiratory Pattern Normal 01/09/25 11:32 Blood Pressure 104/65 01/09/25 11:32 Blood Pressure Mean 78 01/09/25 10:40 Blood Pressure Position Supine 01/09/25 07:30 Pulse Oximetry 94 01/09/25 11:32 Oxygen Delivery Method Nasal Cannula 01/09/25 11:32 Oxygen Flow Rate 2 01/09/25 10:40 Pain Level 0 01/09/25 11:32 Comment Pt drifting O2 when asleep 01/09/25 08:46 Allergies lisinopril Allergy (Severe, Verified 01/09/25 07:39) cough Penicillins Allergy (Severe, Verified 01/09/25 07:39) Swelling/Edema cyclosporine Allergy (Mild, Verified 01/09/25 07:39) SOB infliximab (From Remicade) Adverse Reaction (Severe, Verified 01/09/25 07:39) Gave him Lopus adalimumab (From Humira) Adverse Reaction (Intermediate, Verified 01/09/25 07:39) Skin Rash clindamycin Adverse Reaction (Intermediate, Verified 01/09/25 07:39) Skin Rash ustekinumab (From [facility]) Adverse Reaction (Intermediate, Verified 01/09/25 07:39) Skin Rash IV IV Catheter Type [Right Saline Lock Forearm] IV Catheter Type [Left Saline Lock Antecubital] IV Catheter Type [Right Wrist] Saline Lock IV Catheter Gauge [Right 20 Forearm] IV Catheter Gauge [Left 18 Antecubital] IV Catheter Gauge [Right Wrist 20 ] Diet Orders Category Date Time Status Diabetes Consistent CHO [DIET] Nutrition 01/09/25 Lunch Active Diagnostics 01/09/25 01/09/25 01/09/25 Range/Units 11:40 09:02 08:02 WBC 10.16 (4.4-10.8) 10^3/uL RBC 5.37 (4.36-5.78) 10^6/uL Hgb 15.5 (13.5-17.5) g/dL Hct 45.0 (40.0-50.0) % MCV 84 (80-95) fL MCH 28.9 (27.0-33.0) pg MCHC 34.4 (32.0-36.0) % RDW 12.9 (11.8-14.1) % Plt Count 142 (130-400) 10^3/uL MPV 10.4 (8.0-11.0) fL Immature Gran % 0.5 % Neutrophils % 80.1 % Lymphocytes % 9.7 % Monocytes % 8.8 % Eosinophils % 0.5 % Basophils % 0.4 % Nucleated RBC % 0.0 (0.0-0.3) % Absolute Neutrophils 8.14 H (1.2-6.7) 10^3/uL Absolute Lymphocytes 0.99 L (1.2-3.4) 10^3/uL Absolute Monocytes 0.89 H (0.1-0.8) 10^3/uL Absolute Eosinophils 0.05 (0.0-0.7) 10^3/uL Absolute Basophils 0.04 (0.0-0.2) 10^3/uL PT 27.8 H (9.1-11.1) sec INR 3.0 H (0.9-1.1) VBG pH 7.40 (7.31-7.41) VBG pCO2 32 L (41-51) mmHg VBG pO2 55 mmHg VBG HCO3 20 L (23-28) mmol/L VBG Total CO2 17 L (24-29) mmol/L VBG O2 Saturation 89 % VBG Base Excess -5 L (-2-3) mmol/L VBG Lactate 1.3 (<or=2.0) mmol/L Sodium 134 L (136-145) mmol/L Potassium 3.9 (3.5-5.1) mmol/L Chloride 100 (98-107) mmol/L Carbon Dioxide 19.9 L (21.0-32.0) mmol/L Anion Gap 14.1 H (3-11) mmol/L BUN 38 H (7-18) mg/dL Creatinine 1.7 H (0.70-1.30) mg/dL Est GFR (CKD-EPI 2020) 43.37 (mL/min/1.73m2) Glucose 161 H (74-106) mg/dL Calcium 9.1 (8.5-10.1) mg/dL Magnesium 2.2 (1.8-2.4) mg/dL Total Bilirubin 1.1 H (0.2-1.0) mg/dL AST 17 (15-37) U/L ALT 23 (16-63) U/L Alkaline Phosphatase 90 (46-116) U/L Troponin I 18 21 21 (<or=76) ng/L NT-Pro-B Natriuret Pep 1368 H (<300) pg/mL Total Protein 8.0 (6.4-8.2) g/dL Albumin 3.7 (3.4-5.0) g/dL COVID-19 Source Nasopharynx SARS-CoV-2 (PCR) Negative (Negative) Influenza Type A (PCR) Negative (Negative) Influenza Type B (PCR) Negative (Negative) RSV (PCR) Negative (Negative) 01/09/25 08:02 Blood Culture - Pending Blood 01/09/25 08:00 Blood Culture - Pending Blood Intake and Output - 24 Hour Total 01/09/25 07:25 thru 01/09/25 12:12 Intake Total 360 Balance 360 Weight 109.6 kg Intake: IV 160 Oral 200 Falls Risk Assessment History of Falls Previous History 01/09/25 11:32 Contributing Factors Impairments 01/09/25 11:32 Ambulatory Aids Independent 01/09/25 11:32 Tubes/Lines W/no contributing factors 01/09/25 11:32 Gait Evaluation No gait disturbance 01/09/25 11:32 Cognition No cognitive impairment 01/09/25 11:32 Fall Total Score 28 01/09/25 11:32 Level of Risk Moderate Risk 01/09/25 11:32 v v v v v v v v v Sending and/or Receiving Nurses: Please use comment section below to note any information pertinent to the patient hand-off not included above. Information / Comments: Report received from: Cristi ER/RN. All questions answered.
[2025-01-09] MEDS: Atorvastatin 20 MG TAB PO (20:22)
[2025-01-09] MEDS: Warfarin 5 MG TAB PO (20:22)
[2025-01-09] MEDS: Insulin Glargine 300 UNITS/3 ML PEN 10 UNITS SC (20:22)
[2025-01-10] VITALS (7 sets, daily range): BP systolic 89–131; BP diastolic 46–81; PULSE 60–109; RESP 16–18; TEMP 36.4–36.7; O2SAT 92–95
[2025-01-10] MEDS: Levothyroxine 75 MCG TAB 225 MCG PO (06:03)
[2025-01-10 06:52] LABS: Abs Immature Grans 0.04 10^3/uL (0.0-0.06); HCT 42.3 % (40.0-50.0); HGB 14.7 g/dL (13.5-17.5); Immature Grans % 0.7 %; MCH 29.2 pg (27.0-33.0); MCHC 34.8 % (32.0-36.0); MCV 84 fL (80-95); MPV 10.4 fL (8.0-11.0); Platelet Count 133 10^3/uL (130-400); RBC 5.04 10^6/uL (4.36-5.78); RDW 12.9 % (11.8-14.1); RDW-SD 39.0 fL; WBC 6.11 10^3/uL (4.4-10.8)
[2025-01-10 06:55] LABS: INR 2.6 (0.9-1.1); Prothrombin Time 24.4 sec (9.1-11.1)
[2025-01-10 07:14] LABS: ALT 28 U/L (16-63); AST 25 U/L (15-37); Albumin 3.3 g/dL (3.4-5.0); Alkaline Phosphatase 84 U/L (46-116); Anion Gap 10.3 mmol/L (3-11); BUN 49 mg/dL (7-18); Bilirubin, Total 0.7 mg/dL (0.2-1.0); CO2 23.7 mmol/L (21.0-32.0); Calcium 8.7 mg/dL (8.5-10.1); Chloride 102 mmol/L (98-107); Estimated GFR 46.64 (mL/min/1.73m2); Glucose 130 mg/dL (74-106); Magnesium 2.4 mg/dL (1.8-2.4); Potassium 3.5 mmol/L (3.5-5.1); Sodium 136 mmol/L (136-145); TSH (W/Ref FT4) 0.72 uIU/mL (0.36-3.74); Total Protein 7.5 g/dL (6.4-8.2)
[2025-01-10] MEDS: Spironolactone 25 MG TAB PO (08:50)
[2025-01-10] MEDS: Insulin Glargine 300 UNITS/3 ML PEN 10 UNITS SC ×2 (08:50→20:14)
--- NOTE | 2025-01-10 10:25 | PDOC.CMIN ---
Date of service: 01/10/25 Time of Service: 10:26 Care Management Initial Assmt Initial Assessment Reason for Hospitalization: respiratory failure Functional Status/Living Situation Patient Presentation: Marquez was lying in bed when CM met with him. His , Nakia was in the room visiting. Marquez stated that he is feeling a lot better today and is looking forward to discharge. 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 His son works for him, which is helpful. Marquez and Nakia have two children who live locally and are supportive. Per report, Marquez was transitioned to room air today. He met with palliative care yesterday, and remains a full code at this time. He stated that he is very independent and does not anticipate the need for services in the community at this time. CM will continue to follow. 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 Medications Medication Management: No Issues/Barriers identified Advance Directives Advance Directives: Do you have an Advance Directive: N 06/15/12, 00:08 AD On File at [facility]: N 06/10/12, 19:16 Date Asked 01/09/25 01/09/25, 07:34 AD Date Reviewed COLST On File at [facility] COLST Date Scanned Code Status Resuscitation Status Full Code Insurance Coverage/Financial Issues Insurance: BCBS out of state Care Team Visit Care Team Role Provider Type Yohana Prado MD Primary Care Provider [facility] STAFF PHYSICIAN Layla Ellis RDN, CDCES Other Providers [employer]OR[employer] ARTIST [facility]Patient [facility] Other Providers OTHER Rodney Wick RDN Other Providers [employer]IST Germán Mcleod MD Emergency Provider [facility] STAFF PHYSICIAN Doron Acosta MD Admit Provider [facility] STAFF PHYSICIAN Attending Provider Discharge Potential Discharge Needs: PCP F/U Appt Anticipated Barriers to Discharge: None Identified Patient/Family Education Needs: Review discharge instructions, discuss Ask Me Three Transportation: Private vehicle Plan: Anticipate Marquez will return home once medically cleared. His will drive him home via private vehicle. He will follow up with his PCP and discharge plan of care. CM will continue to follow. Social Determinants of Health Screening Social Determinants of health last assessed in clinic: 01/10/25 Will the Patient Participate in the Screening?: Yes Do you worry about having a steady place to live?: no Problems where you live: no known problems In the past 12 months, have you had to go without electric, gas, oil or water in your home?: no 1. Within the past 12 months, we worried whether our food would run out before we got money to buy more.: Never true 2. Within the past 12 months, the food we bought just didn't last and we didn't have money to get more.: Never true Has lack of transportation kept you from medical appointments or from doing things needed for daily living?: no Has anyone in your life made you feel unsafe or unsupported?: no How hard is it for you to pay for the very basics like food, housing, medical care, and heating? Would you say it is:: Not hard at all Do you want help finding or keeping work or a job?: I do not need or want help If for any reason you need help with day-to-day activities such as bathing, preparing meals, shopping, managing finances, etc., do you get the help you need?: I don?t need any help How often do you feel lonely or isolated from those around you?: Never Do you speak a language other than Hungarian at home?: No Does the patient want assistance with any of the above?: No PFSH All Active Problems (Updated 01/09/25 @ 17:54 by Doron Acosta MD) Immunosuppression due to drug therapy (Acute) Warfarin anticoagulation (Acute) Respiratory acidosis with metabolic acidosis (Acute) Diabetes mellitus with insulin therapy (Acute) Metabolic alkalosis (Acute) Acute on chronic HFrEF (heart failure with reduced ejection fraction) (Acute) Advanced care planning/counseling discussion (Acute) Palliative care encounter (Acute) Pneumonia (Acute) RITU (acute kidney injury) (Acute) Acute hyperglycemia (Acute) Hypoxia (Acute) Nonsustained paroxysmal ventricular tachycardia (Acute) Sinus pause (Acute) Elevated troponin (Acute) Hypomagnesemia (Acute) Subtherapeutic international normalized ratio (INR) (Acute) Obstructive sleep apnea (Chronic) Pulmonary hypertension (Acute) Biventricular heart failure with reduced left ventricular function (Acute) CHF (congestive heart failure) (Chronic) Hand laceration (Acute) Multiple lacerations (Acute) Acute exacerbation of CHF (congestive heart failure) (Acute) Medical History Fatty liver Lupus transient, from Remicaide Murmur Hyperlipidemia Psoriasis Hypothyroid Aortic stenosis History of anticoagulant therapy Renal insufficiency Paresthesia of both hands Elbow pain, right Diabetes mellitus Sleepiness Daytime somnolence Bilateral shoulder pain Radial nerve dysfunction Hx of sepsis Cervicalgia Endocarditis Surgical History H/O aortic valve replacement Social History Smoking/Tobacco Use Status: Former Tobacco Use Smoking risk assessment performed?: Yes Alcohol Intake: never Drug use: Never Substance use type: does not use Household members: spouse Housing: house Number of Children: 2 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
--- NOTE | 2025-01-10 12:49 | PT.INTREAT ---
PT Notes Visit Reasons: respiratory failure Inpatient Physical Therapy Treatment Note [facility] Date: 01/10/25 PRECAUTIONS: standard SUBJECTIVE: Marquez states that he's been walking to the bathroom and back on his own. Reports that his BP has been a little low this am, so he hasn't done much. When he is up, he feels steady and about normal. OBJECTIVE: ? PAIN: denies VITALS: ?Supine: 92/73, HR 109 Sittin/56, heart rate 69 Standin/56, heart rate 79 Post ambulation: 114/85, heart rate 67 BED MOBILITY/TRANSFERS? Supine-sit: independent ? Sit-stand: independent? Stand-sit: independent ? Therapeutic Exercises (84929m2): Direct one-on-one instruction in therapeutic exercises to develop strength, endurance, range of motion and flexibility Ambulation ? Assistive Device: none? Weight bearing: WBAT Assist: SBA ? Distance:? 100' ? Deviation: mild path deviation ? Performed with close monitoring of vitals throughout, as noted above. ? Provided skilled instruction in proper exercise performance Provided skilled manual cues to facilitate proper muscle recruitment and/or form: ASSESSMENT:? Improving independence and activity tolerance. Requires continued monitoring of vitals throughout. PLAN: Continue PT intervention to maximize safety and mobility TREATMENT CODE/TIME: 7215-3384 DISCHARGE RECOMMENDATION: Home with outpatient PT
--- NOTE | 2025-01-10 16:26 | W.PM.PROGNOT ---
Date of Service Date of service: 01/10/25 Time of Service: 13:30 Assessment and Plan Assessment and plan (1) Acute on chronic HFrEF (heart failure with reduced ejection fraction): Status: Acute Assessment and plan: Likely triggered by viral illness in the setting of multiple cardiac deficits Echocardiogram showing little change since 2022. EF 35% Will carefully diurese with attention to overall fluid status Continue oxygen support Continue home GDMT Jan 10: on room air, little distal edema. No additional diuresis. Hypotensive. Lowering entresto dose. (2) Respiratory acidosis with metabolic acidosis: Status: Acute Assessment and plan: Low serum CO2 consistent with ongoing tachypnea Anticipate correction with respiratory support (3) RITU (acute kidney injury): Status: Acute Assessment and plan: Mild acute injury on chronic renal disease, due to viral illness and respiratory/metabolic acidosis (4) Diabetes mellitus with insulin therapy: Status: Acute Assessment and plan: Last known A1C 6.9 in May 2024 Home regimen degludec 20 BID, empagliflozin (5) Warfarin anticoagulation: Status: Acute Assessment and plan: Mechanical aortic valve, INR goal 2.5 - 3.5 Daily INR check to set warfarin dose Tonight warfarin 5 Jan 10: INR 2.6, dosing warfarin 7.5 tonight (6) Hypothyroid: Assessment and plan: Continue home levothyroxine (7) Immunosuppression due to drug therapy: Status: Acute Assessment and plan: On treatment for psoriasis, next shot Sunday Subjective Subjective Interval history since last seen: Mr. Juárez is napping, easily rousable. Good participation in conversation. Daughter at bedside. He wants to be able to go his his son's auto race tomorrow afternoon. Discussed risks and strategies for this as a possibility. Will check hypotension in the morning and re-discuss. Exam Narrative Exam Narrative: General: This is a pleasant man in mild respiratory distress HEENT: Normocephalic, atraumatic CV: RRR, upper chest pacer Resp: Mild bibasilar rales on NC2L, mildly increased work of breathing, coughing Abd: soft, NTND MSK: voluntary motion x4 Neuro: awake, alert, no focal deficits Objective Last Vital Signs Temp 36.7 C 01/10/25 15:14 Pulse 66 01/10/25 15:14 Resp 17 01/10/25 15:14 BP 129/65 01/10/25 15:14 Pulse Ox 94 01/10/25 15:14 Laboratory Results - last 24 hr 01/10/25 06:25 WBC 6.11 RBC 5.04 Hgb 14.7 Hct 42.3 MCV 84 MCH 29.2 MCHC 34.8 RDW 12.9 Plt Count 133 MPV 10.4 Immature Gran % 0.7 Neutrophils % 63.4 Lymphocytes % 20.5 Monocytes % 10.6 Eosinophils % 4.1 Basophils % 0.7 Nucleated RBC % 0.0 Absolute Neutrophils 3.88 Absolute Lymphocytes 1.25 Absolute Monocytes 0.65 Absolute Eosinophils 0.25 Absolute Basophils 0.04 PT 24.4 H INR 2.6 H Sodium 136 Potassium 3.5 Chloride 102 Carbon Dioxide 23.7 Anion Gap 10.3 BUN 49 H Creatinine 1.6 H Est GFR (CKD-EPI 2020) 46.64 Glucose 130 H Calcium 8.7 Magnesium 2.4 Total Bilirubin 0.7 AST 25 ALT 28 Alkaline Phosphatase 84 Total Protein 7.5 Albumin 3.3 L TSH 0.72 Time Spent with Patient Time Spent with Patient: 25-34 minutes Time was spent: preparing to see the patient(eg.review tests), obtaining and/or reviewing separately otained hiistory, ordering medications,tests, procedures, referring, communicating with other health childbirth and infant care teacher, indepentently interpreting results, counseling the patient and care coordination
[2025-01-10] MEDS: Atorvastatin 20 MG TAB PO (20:13)
[2025-01-11 03:18] VITALS: BP 120/51; PULSE 60; RESP 16; TEMP 36.6; O2SAT 95
[2025-01-11] MEDS: Levothyroxine 75 MCG TAB 225 MCG PO (05:04)
[2025-01-11 06:34] LABS: Abs Immature Grans 0.04 10^3/uL (0.0-0.06); HCT 45.4 % (40.0-50.0); HGB 15.7 g/dL (13.5-17.5); Immature Grans % 0.7 %; MCH 28.5 pg (27.0-33.0); MCHC 34.6 % (32.0-36.0); MCV 83 fL (80-95); MPV 10.2 fL (8.0-11.0); Platelet Count 151 10^3/uL (130-400); RBC 5.50 10^6/uL (4.36-5.78); RDW 12.5 % (11.8-14.1); RDW-SD 37.9 fL; WBC 5.42 10^3/uL (4.4-10.8)
[2025-01-11 06:46] LABS: INR 2.0 (0.9-1.1); Prothrombin Time 19.0 sec (9.1-11.1)
[2025-01-11 07:02] LABS: ALT 36 U/L (16-63); AST 27 U/L (15-37); Albumin 3.5 g/dL (3.4-5.0); Alkaline Phosphatase 89 U/L (46-116); Anion Gap 11.8 mmol/L (3-11); BUN 50 mg/dL (7-18); Bilirubin, Total 0.8 mg/dL (0.2-1.0); CO2 22.2 mmol/L (21.0-32.0); Calcium 9.1 mg/dL (8.5-10.1); Chloride 103 mmol/L (98-107); Estimated GFR 54.75 (mL/min/1.73m2); Glucose 173 mg/dL (74-106); Magnesium 2.5 mg/dL (1.8-2.4); Potassium 3.6 mmol/L (3.5-5.1); Sodium 137 mmol/L (136-145); Total Protein 7.9 g/dL (6.4-8.2)
[2025-01-11 08:05] VITALS: BP 106/66; PULSE 70; RESP 18; TEMP 36.7; O2SAT 93
[2025-01-11] MEDS: Spironolactone 25 MG TAB PO (08:17)
[2025-01-11] MEDS: Insulin Glargine 300 UNITS/3 ML PEN 10 UNITS SC (08:17)
[2025-01-11 11:06] VITALS: BP 119/69; PULSE 76; RESP 18; TEMP 36.5; O2SAT 94
--- NOTE | 2025-01-11 11:15 | DSE_ITS ---
Date of service: 01/11/25 Time of Service: 11:00 DS: Diagnosis Discharge Diagnosis (1) Acute on chronic HFrEF (heart failure with reduced ejection fraction): Status: Acute Asessment and Plan: Likely triggered by viral illness in the setting of multiple cardiac deficits Echocardiogram showing little change since 2022. EF 35% Careful diuresis with attention to overall fluid status Continue oxygen support Continue home GDMT Jan 10: on room air, little distal edema. No additional diuresis. Hypotensive. Lowering entresto dose. Jan 11: Patient and family ready for discharge with cardiology followup. Antihypertensives held pending cardiology review due to fall risk. (2) Respiratory acidosis with metabolic acidosis: Status: Resolved Asessment and Plan: Low serum CO2 consistent with ongoing tachypnea Correction with respiratory support (3) RITU (acute kidney injury): Status: Resolved Asessment and Plan: Mild acute injury on chronic renal disease, due to viral illness and respiratory/metabolic acidosis (4) Diabetes mellitus with insulin therapy: Status: Acute Asessment and Plan: Last known A1C 6.9 in May 2024 Home regimen degludec 20 BID, empagliflozin No changes in home management (5) Warfarin anticoagulation: Status: Acute Asessment and Plan: Mechanical aortic valve, INR goal 2.5 - 3.5 Daily INR check to set warfarin dose Tonight warfarin 5 Jan 10: INR 2.6, dosing warfarin 7.5 tonight Jan 11: INR 2, patient will get warfarin 10 tonight and followup in clinic (6) Hypothyroid: Asessment and Plan: Continue home levothyroxine (7) Immunosuppression due to drug therapy: Status: Acute Asessment and Plan: On treatment for psoriasis, next shot Jan 14 Discharge Plan Disposition Patient Disposition: Home Condition: Improving Discharge Details Reason For Visit: Respiratory Failure Admit Date/Time: 01/09/25 09:34 Admit Provider: Doron Acosta Attending Provider: Doron Acosta Primary Care Provider: Yohana Prado V Hospital Course Hospital Course: Camden Juárez (Andy) is a 69 year old man presenting January 09 with shortness of breath after 2 days of flu-like symptoms. He was at his usual INR check at [facility], where he appeared to be having difficulty breathing; staff found he had SpO2 89%. Patient reported that he had started feeling unwell on Jan 07, with fatigue, vomiting and diarrhea. He started coughing on Jan 08, and felt winded with chest discomfort during and after a coughing spell. No abdominal pain. In the ED, SpO2 was 91% on room air; vitals were otherwise unremarkable. He became tachypneic to 28 and hypoxemic with SpO2 87 and was started on NC 2L. EKG showed paced rhythm. CXR showed mild pulmonary venous congestion. Echo was done with read pending. CBC unremarkable. Chemistries showed mild hyponatremia 134, low serum CO2 19.9, elevated BUN 38, elevated creatinine 1.7 against baseline 1.4, elevated glucose 161, elevated BNP 1368. Troponins negative. INR 3.0, within target range. VBG showed low bicarb. Negative flu/COVID. Blood cultures sent. He was started on ceftriaxone and doxycycline for likely CAP. PMH includes pacemaker, mechanical aortic valve on warfarin, HFrEF, 2023 TBI, JULIANE, COPD, hypothyroid, DM, immune suppression for psoriasis Mr. Juárez was given furosemide and improved, on room air as of January 10. Patient had low blood pressure, 80's / 40's, on January 09 and . His entresto 49/51 was held. He was given entresto 24/ the evening of January 10; his morning BP was 100's / 60's. 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 He is ambulating comfortably, on room air, and feels well. Home Meds and New Rx's Prescriptions: Continued atorvastatin 20 mg Tablet 20 mg PO HS lidocaine 5 % Ointment 1 applic TOPICAL QID PRN Jackie Autoinjector 80 mg/mL Auto-Injector 80 mg SUBCUT DIRECTED Rx Instructions: one injection from auto injector [id number] warfarin [Jantoven] 5 mg Tablet 15 mg PO QPM Qty: 90 0RF Patient Comments: mostly been taking 7.5 - 10 mg, but INR dependent. levothyroxine 50 mcg tablet 50 mcg PO DAILY Qty: 30 0RF Patient Comments: TAKE 1/2 TABLET BY MOUTH ONCE A DAY WITH 200MCG TABLET Rx Instructions: for a total dose of 250 mcg daily levothyroxine [Synthroid] 200 MCG tablet 225 mcg PO DAILY Rx Instructions: Take in addition to the 50 mcg tablet for a total dose of 250 mcg daily. insulin degludec [Tresiba FlexTouch U-100] 100 unit/mL (3 mL) insulin pen 20 unit SUBCUT BID Patient Comments: INJECT 40 UNITS UNDER THE SKIN TWO TIMES A DAY insulin aspart U-100 [Novolog PenFill U-100 Insulin] 100 UNIT/ML cartridge 100 units SQ PRN PRN Patient Comments: sliding scale meclizine 25 mg tablet 25 mg PO BID PRN (Reason: dizziness) Qty: 14 0RF Rx Instructions: Take 1 tablet 2-3 times a day as needed for dizziness Jardiance 25 mg tablet 25 mg PO DAILY Patient Comments: TAKE ONE TABLET BY MOUTH EVERY DAY cholecalciferol (vitamin D3) 50 mcg (2,000 unit) capsule 2,000 unit PO DAILY Patient Comments: TAKE ONE CAPSULE BY MOUTH EVERY DAY famotidine 40 mg tablet 40 mg PO .every other day Patient Comments: TAKE ONE TABLET BY MOUTH DAILY FOR A MONTH, THEN DECREASE TO ONE TABLET EVERY OTHER DAY Changed spironolactone 25 mg Tablet 12.5 mg PO DAILY Qty: 30 0RF Held sacubitril-valsartan [Entresto] 24-26 mg Tablet 1 ea PO BID Qty: 60 0RF Hold Instructions: Resume on 01/14/25. Do not give if systolic blood pressure is under 90 Discontinued furosemide 40 mg Tablet See Rx Instructions .ROUTE .COMPLEX Qty: 35 0RF Patient Comments: Only for 3 lb or more per day weight gain. Has not taken in over a year per . Rx Instructions: 40 mg PO BID at 8 am and 2 pm x 5 days, then 40 mg PO daily. Discharge Instructions Stand Alone Forms: Nursing Discharge Form Referrals: Yohana Prado MD [Primary Care Provider, Medicine] Referral Note: Please give your PCP office a call to make a follow up appointment. Activity:: Activity as Tolerated Equipment/Supplies:: No Equipment Needed Diet:: As Tolerated Discharge Orders Discharge Orders: Discharge Order (Routine); Ordered 01/11/25 Ordered By: Doron Acosta Discharge Data Discharge Date/Time-TO BE ENTERED AT DEPARTURE: 01/11/25 11:50 DS: Summary Time Spent with Patient providing and/or coordinating discharge services: Greater than 30 minutes Status at Discharge Functional status at discharge: independent ambulation Overall status at discharge: patient is back to baseline Mental Status: mental status grossly normal Speech and Movement: speech and movement normal Mood: congruent mood Affect: normal affect Exam Narrative Exam Narrative: General: This is a pleasant man in no distress HEENT: Normocephalic, atraumatic CV: RRR, upper chest pacer Resp: CTAB on room air, light wheeze cleared with cough Abd: soft, NTND MSK: voluntary motion x4 Neuro: awake, alert, no focal deficits Psych Mental Status: mental status grossly normal Speech and Movement: speech and movement normal Mood: congruent mood Affect: normal affect DS: Data Vitals/I&O Vitals and I&O: Vital Signs Temperature 36.5 C 01/11/25 11:06 Temperature Source Temporal Artery Scan 01/11/25 11:06 Pulse 76 01/11/25 11:06 Pulse 64 01/09/25 09:50 Respiratory Rate 18 01/11/25 11:06 Respiratory Effort Normal, Non-Labored 01/09/25 11:32 Respiratory Depth Normal 01/09/25 11:32 Respiratory Pattern Normal 01/09/25 11:32 Blood Pressure 119/69 01/11/25 11:06 Blood Pressure Mean 85 01/11/25 11:06 Blood Pressure Position Supine 01/09/25 07:30 Pulse Oximetry 94 01/11/25 11:06 Oxygen Delivery Method Room Air 01/11/25 11:06 Oxygen Flow Rate 0 01/11/25 11:06 Pain Level 0 01/11/25 03:18 Comment pt asleep 01/10/25 03:23 Comment Pt drifting O2 when asleep 01/09/25 08:46 Intake & Output 01/10/25 01/10/25 01/11/25 11:59 23:59 11:59 Intake Total 300 / 300 220 / 220 Output Total 300 / 1000 700 / 1000 250 / 250 Balance 0 / -700 -700 / -700 -30 / -30 Intake: Oral 300 / 300 220 / 220 Output: Urine 300 / 1000 700 / 1000 250 / 250 Other: Urine Color Yellow Yellow Yellow Urine Appearance Clear Urine Odor None None Comment pT flushed before TEST PILOT could see urine Data Completed and Pending Labs on day of discharge: Labs from last 24 hours 01/11/25 06:00 WBC 5.42 RBC 5.50 Hgb 15.7 Hct 45.4 MCV 83 MCH 28.5 MCHC 34.6 RDW 12.5 Plt Count 151 MPV 10.2 Immature Gran % 0.7 Neutrophils % 56.0 Lymphocytes % 26.8 Monocytes % 9.8 Eosinophils % 6.1 Basophils % 0.6 Nucleated RBC % 0.0 Absolute Neutrophils 3.04 Absolute Lymphocytes 1.45 Absolute Monocytes 0.53 Absolute Eosinophils 0.33 Absolute Basophils 0.03 PT 19.0 H INR 2.0 H Sodium 137 Potassium 3.6 Chloride 103 Carbon Dioxide 22.2 Anion Gap 11.8 H BUN 50 H Creatinine 1.4 H Est GFR (CKD-EPI 2020) 54.75 Glucose 173 H Calcium 9.1 Magnesium 2.5 H Total Bilirubin 0.8 AST 27 ALT 36 Alkaline Phosphatase 89 Total Protein 7.9 Albumin 3.5 Preliminary micro results at discharge 01/09/25 08:02 Blood Blood Culture - Preliminary NO GROWTH 48 HOURS 01/09/25 08:00 Blood Blood Culture - Preliminary NO GROWTH 48 HOURS PFSH All Active Problems (Updated 01/12/25 @ 00:04 by KENDELL REN) Immunosuppression due to drug therapy (Acute) Warfarin anticoagulation (Acute) Diabetes mellitus with insulin therapy (Acute) Metabolic alkalosis (Acute) Acute on chronic HFrEF (heart failure with reduced ejection fraction) (Acute) Pneumonia (Acute) Acute hyperglycemia (Acute) Nonsustained paroxysmal ventricular tachycardia (Acute) Sinus pause (Acute) Elevated troponin (Acute) Hypomagnesemia (Acute) Subtherapeutic international normalized ratio (INR) (Acute) Obstructive sleep apnea (Chronic) Pulmonary hypertension (Acute) Biventricular heart failure with reduced left ventricular function (Acute) Hand laceration (Acute) Multiple lacerations (Acute) Medical History Fatty liver Lupus transient, from [place] Murmur Hyperlipidemia Psoriasis Hypothyroid Aortic stenosis History of anticoagulant therapy Renal insufficiency Paresthesia of both hands Elbow pain, right Diabetes mellitus Sleepiness Daytime somnolence Bilateral shoulder pain Radial nerve dysfunction Hx of sepsis Cervicalgia Endocarditis Surgical History H/O aortic valve replacement Social History Smoking/Tobacco Use Status: Former Tobacco Use Smoking risk assessment performed?: Yes Alcohol Intake: never Drug use: Never Substance use type: does not use Household members: spouse Housing: house Number of Children: 2 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
--- NOTE | 2025-01-11 16:48 | PDOC.CMDIS ---
Date of service: 01/11/25 Time of Service: 16:48 LACE Index Scoring Tool Questions: Length of Stay (in days): 2 Was the patient admitted via the E.D.?: Yes Comorbidities: Diabetes w/o Complication and Congestive Heart Failure E.D. Visits: 0 Answers: Total Score: 8 Risk of Readmission: Low Risk Care Management Discharge Plan Reason for Hospitalization: Respiratory Failure Discharge Plan: Marquez discharged home today with no new services. His drove him home via private vehicle. He will follow up with his PCP and discharge plan of care. He was happy to be going home. Patient/Family Education Needs: Review discharge instructions and limitations, discussion of self care needs including ask me three.
== END 2025-01-11 11:50 | disposition home or self-care (01) | DRG 292 ==
LOC: ER 09:26 → MS 10:35
PROVIDERS: Admitting Provider Family Medicine; Emergency Provider Student in an Organized Health Care Education/Training Program; PCP Family Medicine; Responsible Provider Family Medicine; Visit Provider Family Medicine
DX: I50.23 Acute on chronic systolic (congestive) heart failure (principal); D84.821 Immunodeficiency due to drugs; N17.9 Acute kidney failure, unspecified; E87.4 Mixed disorder of acid-base balance; E87.1 Hypo-osmolality and hyponatremia; Z79.84 Long term (current) use of oral hypoglycemic drugs; Z79.4 Long term (current) use of insulin; E11.65 Type 2 diabetes mellitus with hyperglycemia; G47.33 Obstructive sleep apnea (adult) (pediatric); I27.20 Pulmonary hypertension, unspecified; Z95.810 Presence of automatic (implantable) cardiac defibrillator; E03.9 Hypothyroidism, unspecified; L40.9 Psoriasis, unspecified; Z95.2 Presence of prosthetic heart valve; Z87.820 Personal history of traumatic brain injury; Z79.620 Long term (current) use of immunosuppressive biologic; R09.02 Hypoxemia; K76.0 Fatty (change of) liver, not elsewhere classified; E78.5 Hyperlipidemia, unspecified; E11.22 Type 2 diabetes mellitus with diabetic chronic kidney disease; N18.9 Chronic kidney disease, unspecified; I95.9 Hypotension, unspecified
CPT/HCPCS: 00123; 36415; 80053; 82805; 87040; 87637; 93005; 96365; 96368; 97110; 97162; 99285; 71046; 83605; 83735; 83880; 84443; 84484; 85025; 85610; 93010; 93306; 99222; 99231; 99238; J0696; J1815; J1938

== ENCOUNTER 2025-03-20 16:22 | Outpatient (REF) | payer BC, SELFPAY ==
[2025-03-20 18:11] LABS: Microalb ug/mg Crea 9.8 ug/mg Cr
== END 2025-03-20 16:23 | disposition home or self-care (01) ==
LOC: NCHCN 16:22
PROVIDERS: PCP Family Medicine; Visit Provider Family Medicine
DX: E11.69 Type 2 diabetes mellitus with other specified complication (principal); Z79.4 Long term (current) use of insulin
CPT/HCPCS: 82043; 82570

== ENCOUNTER 2025-03-24 10:48 | Outpatient (REF) | payer BC, SELFPAY ==
[2025-03-24 15:44] LABS: Hemoglobin A1C 6.6 % (<5.7)
[2025-03-24 15:52] LABS: Anion Gap 12.2 mmol/L (3-11); BUN 23 mg/dL (9-23); CO2 23.8 mmol/L (20.0-31.0); Calcium 9.7 mg/dL (8.3-10.6); Chloride 106 mmol/L (98-107); Glucose 127 mg/dL (74-106); Potassium 3.6 mmol/L (3.5-5.1); Sodium 142 mmol/L (136-145); TSH 0.20 uIU/mL (0.55-4.78)
== END 2025-03-24 10:49 | disposition home or self-care (01) ==
LOC: NCHCN 10:48
PROVIDERS: PCP Family Medicine; Visit Provider Family Medicine
DX: Z86.79 Personal history of other diseases of the circulatory system (principal); E11.65 Type 2 diabetes mellitus with hyperglycemia; E03.9 Hypothyroidism, unspecified
CPT/HCPCS: 80048; 83036; 84439; 84443